=== PATIENT | female | born 1935 | race Caucasian/White ===

== ENCOUNTER 2016-05-10 08:59 | Inpatient (IN) | payer OTHER, MEDICARE ==
[2016-05-10 09:19] VITALS: BMI 25.4
--- NOTE | 2016-05-10 09:22 | PDOC ---
History of Present Illness - History of Present Illness Initial Comments: 05/10/16 09:53 Patient is an 80 year old female with significant medical hx of AFib, HTN, HLD, COPD, gastritis, GERD, chronic lower back pain, osteoarthritis and osteopenia who is presenting to the ED with one hour of substernal chest pain. The patient' s onset of her pain occurred one hour ago as she was standing up. Her pain is constant, characterized as sharp, and radiates down to her left wrist. She rates her chest pain 8/10 in severity and reports associated mild nausea but no vomiting. Patients last meal was baked salmon that she ate last night at 7PM; she denies eating breakfast this morning or having snacks after dinner. The patient denies a history of cardiac catheterizations. The patients last stress test was one year ago. She saw her test conductor last week and states everything was fine. Denies fever, chills, diaphoresis, and shortness of breath. PCP: Venkat Peraza MD; Aircraft Machinist: Nikki Brown MD Surgical Hx: Bilateral total hip replacement, Appendectomy, Colonoscopy <Lucia Flores - Last Filed: 05/10/16 10:40> <Anand Acosta - Last Filed: 05/10/16 10:48> - General Chief Complaint: Chest Pain Stated Complaint: CHEST PAIN Time Seen by Provider: 05/10/16 09:21 Past History <Lucia Flores - Last Filed: 05/10/16 10:40> - Past Medical History Anemia: No Asthma: No Cancer: No Cardiac Disorders: Yes (PAROXYSMAL A-FIB) CVA: No COPD: No CHF: No Dementia: No Diabetes: No GI Disorders: Yes (IDIOPATHIC EROSIVE/HEMORRHAGIC GASTRITIS; DIVERTICULitis) Disorders: No HTN: Yes Hypercholesterolemia: No Liver Disease: No Seizures: No Thyroid Disease: Yes (nodule) - Surgical History Abdominal Surgery: No Appendectomy: Yes Cardiac Surgery: No Cholecystectomy: No Lung Surgery: No Neurologic Surgery: No Orthopedic Surgery: Yes (both HIP REPLACEMENT) - Immunization History Immunization Up to Date: No - Psycho/Social/Smoking Cessation Hx Anxiety: Yes Suicidal Ideation: No Smoking History: Never smoked Have you smoked in the past 12 months: No If you are a former smoker, when did you quit?: 40 YRS AGO Information on smoking cessation initiated: No Hx Alcohol Use: Yes (DAILY WINE) Drug/Substance Use Hx: No Substance Use Type: None Hx Substance Use Treatment: No <Anand Acosta - Last Filed: 05/10/16 10:48> - Past Medical History Allergies/Adverse Reactions: Allergies Allergy/AdvReac Type Severity Reaction Status Date / Time atropine AdvReac Severe Verified 05/10/16 09:04 tape Allergy Intermediate Rash Uncoded 05/10/16 09:04 Home Medications: Ambulatory Orders Amlodipine Besylate 10 mg PO DAILY 05/10/16 Ascorbic Acid [Vitamin C] 500 mg PO DAILY 05/10/16 Atenolol [Tenormin -] 25 mg PO HS 05/10/16 Cholecalciferol (Vitamin D3) [Vitamin D3 -] 1,000 unit PO DAILY 05/10/16 Dabigatran Etexilate Mesylate [Pradaxa -] 150 mg PO BID 05/10/16 Docusate Sodium 100 mg PO BID 05/10/16 Hydralazine HCl [Apresoline -] 25 mg PO BID 05/10/16 Hydrochlorothiazide 25 mg PO DAILY 05/10/16 Multivitamins [Tab-A-Vit -] 1 tab PO DAILY 05/10/16 [place]-3 Fatty Acids [[place]-3] 1,000 mg PO DAILY 05/10/16 Red Yeast Rice Extract 600 gm PO DAILY 05/10/16 Valsartan 320 mg PO DAILY 05/10/16 Zolpidem Tartrate [Ambien] 10 mg PO HS 05/10/16 Review of Systems - Review of Systems Comments:: 05/10/16 09:55 GENERAL/CONSTITUTIONAL: No fever or chills. No weakness. HEAD, EYES, EARS, NOSE AND THROAT: No change in vision. No ear pain or discharge. No sore throat. CARDIOVASCULAR: Chest pain. No shortness of breath. RESPIRATORY: No cough, wheezing, or hemoptysis. GASTROINTESTINAL: Nausea. No vomiting, diarrhea or constipation. GENITOURINARY: No dysuria, frequency, or change in urination. MUSCULOSKELETAL: No joint or muscle swelling or pain. No neck or back pain. SKIN: No rash NEUROLOGIC: No headache, vertigo, loss of consciousness, or change in strength/ sensation. <Lucia Flores - Last Filed: 05/10/16 10:40> *Physical Exam - Vital Signs Last Vital Signs Temp Pulse Resp BP Pulse Ox 97.2 F L 79 18 117/74 100 05/10/16 09:18 05/10/16 09:18 05/10/16 09:18 05/10/16 09:18 05/10/16 09:18 - Physical Exam Comments: 05/10/16 09:57 GENERAL: Awake, alert, and fully oriented, in no acute distress HEAD: No signs of trauma EYES: PERRLA, EOMI, sclera anicteric, conjunctiva clear ENT: Auricles normal inspection, hearing grossly normal, nares patent, oropharynx clear without exudates. Moist mucosa NECK: Normal ROM, supple, no lymphadenopathy, JVD, or masses LUNGS: Breath sounds equal, clear to auscultation bilaterally. No wheezes, and no crackles HEART: Irregularly irregular. Normal S1 and S2, no murmurs, rubs or gallops ABDOMEN: Soft, nontender, normoactive bowel sounds. No guarding, no rebound. No masses EXTREMITIES: Normal range of motion, no edema. No clubbing or cyanosis. No cords, erythema, or tenderness NEUROLOGICAL: Cranial nerves II through XII grossly intact. Normal speech, normal gait SKIN: Warm, Dry, normal turgor, no rashes or lesions noted. ENDOCRINE: No increased thirst. No abnormal weight change. HEMATOLOGIC/LYMPHATIC: No anemia, easy bleeding, or history of blood clots. ALLERGIC/IMMUNOLOGIC: No hives or skin allergy. <Lucia Flores - Last Filed: 05/10/16 10:40> - Vital Signs Last Vital Signs Temp Pulse Resp BP Pulse Ox 97.2 F L 79 18 117/74 100 05/10/16 09:18 05/10/16 09:18 05/10/16 09:18 05/10/16 09:18 05/10/16 09:18 <Anand Acosta - Last Filed: 05/10/16 10:48> Heart Score/ECG Review #1 05/10/16 10:40 Atrial flutter with variable AV block at [address] and T wave abnormality Abnormal ECT Same as ECG performed on 11/15/15 <Lucia Flores - Last Filed: 05/10/16 10:40> - History History: Moderately suspicious - Age Age: >/= 65 - Risk Factors Risk Factors Heart Score: Yes Hx Hypercholesterolemia Based on the list above the patient has:: >/=3 risk factors or Hx atherosclerotic disease - Troponin Troponin: 1-3x normal limit - ECG Intrepretation Rhythm: Irregularly Irregular <Anand Acosta - Last Filed: 05/10/16 10:48> ED Treatment Course - LABORATORY CBC & Chemistry Diagram: 05/10/16 09:26 05/10/16 09:25 - RADIOLOGY Radiograph Interpretation: 05/10/16 10:41 Chest X-Ray Impression: Left lower lung zone obscured by the cardiac silhouette, soft tissues of the chest. No airspace opacities are seen in the elft upper lung zone, right lung. No evidence of vascular congestion. No evidence of pneumothorax. Reported By: Lamberto Jim MD - Medications Given in the ED: ED Medications Discontinued Medications Generic Name Dose Route Start Last Admin Trade Name Freq PRN Reason Stop Dose Admin Morphine Sulfate 4 mg 05/10/16 09:28 05/10/16 09:35 Morphine Injection - IVPUSH 05/10/16 09:29 4 mg ONCE ONE Administration Ondansetron HCl 4 mg 05/10/16 09:28 05/10/16 09:36 Zofran Injection IVPUSH 05/10/16 09:29 4 mg ONCE ONE Administration <Lucia Flores - Last Filed: 05/10/16 10:40> - LABORATORY CBC & Chemistry Diagram: 05/10/16 09:26 05/10/16 09:25 <Anand Acosta - Last Filed: 05/10/16 10:48> *DC/Admit/Observation/Transfer - Attestations Scribe Attestion: 05/10/16 09:58 Documentation prepared by Lucia Flores, acting as medical assembler for Anand Acosta MD. <Lucia Flores - Last Filed: 05/10/16 10:40> - Discharge Dispostion Admit: Yes - Attestations Physician Attestion: 05/10/16 09:22 I, Dr. Anand Acosta, attest that this document has been prepared under my direction and personally reviewed by me in its entirety. I further attest, that it accurately reflects all work, treatment, procedures and medical decision -making performed by me. <Anand Acosta - Last Filed: 05/10/16 10:48> Diagnosis at time of Disposition: ACS (acute coronary syndrome) Chest pain Qualifiers: Chest pain type: precordial chest pain Qualified Code(s): R07.2 - Precordial pain - Discharge Dispostion Condition at time of disposition: Improved - Referrals Referrals: Venkat Peraza MD [Primary Care Provider] -
[2016-05-10] MEDS ORDERED: morphine CARPU-JECT 4 MG/1 ML DISP.SYRIN IVPUSH ONE (09:28)
[2016-05-10] MEDS ORDERED: ONDANSETRON 4 MG/2 ML VIAL IVPUSH ONE (09:28)
[2016-05-10] MEDS ORDERED: ONDANSETRON 4 MG/2 ML VIAL ONE (09:30)
[2016-05-10] MEDS ORDERED: morphine CARPU-JECT 4 MG/1 ML DISP.SYRIN ONE (09:30)
[2016-05-10] MEDS ORDERED: MAG HYDROX/AL HYDROX/SIMETH 30 ML UNIT-DOSE CUP PO ONE (09:46)
[2016-05-10] MEDS ORDERED: diphenhydrAMINE HCL 12.5 MG/5 ML UNIT-DOSE CUPS PO ONE (09:46)
[2016-05-10] MEDS ORDERED: FAMOTIDINE 20 MG/50 ML IVPB 50 ML IVPB ONE ×2 (09:46→09:57)
[2016-05-10] MEDS ORDERED: LIDOCAINE VISCOUS 2% ORAL/TOP 20 ML UNIT-DOSE CUP MM ONE (09:46)
[2016-05-10] MEDS ORDERED: PANTOPRAZOLE 40 MG TABLET (FP) PO ONE (09:46)
[2016-05-10 09:56] LABS: BASOPHIL 0.9 % (0-2.0); EOSINOPHIL 1.8 % (0-4.5); MCH 28.1 pg (25.7-33.7); MEAN CELL VOLUME 85.2 fl (80-96); MEAN PLT VOLUME 7.7 fl (7.5-11.1); NEUTROPHILS 63.5 % (42.8-82.8); PLATELET COUNT 355 K/MM3 (134-434); RDW 16.8 % (11.6-15.6); WHITE BLOOD COUNT 7.6 K/mm3 (4.0-10.0)
[2016-05-10] MEDS ORDERED: MAG HYDROX/AL HYDROX/SIMETH 30 ML UNIT-DOSE CUP ONE (09:56)
[2016-05-10] MEDS ORDERED: PANTOPRAZOLE 40 MG TABLET (FP) ONE (09:56)
[2016-05-10] MEDS ORDERED: diphenhydrAMINE HCL 12.5 MG/5 ML BULK BOTTLE ONE (09:56)
[2016-05-10 10:11] LABS: ALBUMIN 3.5 g/dl (3.4-5.0); ANION GAP 12 (8-16); BILIRUBIN,TOTAL 0.6 mg/dL (0.2-1.0); CALCIUM 9.5 mg/dL (8.5-10.1); CO2 26 mmol/L (21-32); CREATININE 0.7 mg/dL (0.55-1.02); GLUCOSE,RANDOM 141 mg/dL (74-106); SGPT/ALT 23 U/L (12-78); TOT PROT 7.2 g/dl (6.4-8.2)
[2016-05-10 10:14] LABS: ALK PHOS 79 U/L (45-117); TROPONIN I 0.07 ng/ml (0.00-0.05)
[2016-05-10 10:20] LABS: SGOT/AST 39 U/L (15-37)
[2016-05-10 10:38] LABS: INR 1.24 (0.82-1.09); PROTHROMBIN TIME (PATIENT) 13.7 SEC (9.98-11.88)
[2016-05-10] MEDS ORDERED: SODIUM CHLORIDE 500 ML IV STA (10:42)
[2016-05-10] MEDS ORDERED: morphine CARPU-JECT 2 MG/1 ML DISP.SYRIN IVPUSH ONE (10:43)
[2016-05-10] MEDS ORDERED: NITROGLYCERIN 2% OINTMENT - 1GM PACKET TD ONE (10:44)
[2016-05-10] MEDS ORDERED: morphine CARPU-JECT 2 MG/1 ML DISP.SYRIN ONE (10:48)
--- NOTE | 2016-05-10 15:02 | EKG ---
Test Reason : Blood Pressure : / mmHG Vent. Rate : 086 BPM Atrial Rate : 258 BPM P-R Int : 000 ms QRS Dur : 104 ms QT Int : 384 ms P-R-T Axes : 000 -57 079 degrees QTc Int : 459 ms ATRIAL FLUTTER WITH VARIABLE A-V BLOCK LEFT ANTERIOR FASCICULAR BLOCK NONSPECIFIC ST AND T WAVE ABNORMALITY ABNORMAL ECG WHEN COMPARED WITH ECG OF 15-NOV-2015 10:37, ATRIAL FLUTTER HAS REPLACED ATRIAL FIBRILLATION Confirmed by SYLVIA ARREDONDO MD ([id number]) on 05/10/2016 3:02:28 PM Referred By: Confirmed By:SYLVIA ARREDONDO MD
[2016-05-10 16:42] LABS: TROPONIN I 9.87 ng/ml (0.00-0.05)
[2016-05-10] MEDS ORDERED: HEPARIN NA (PORCINE) 5,000 UNITS/ML 1ML VIAL IVPUSH PRN ×2 (20:25)
[2016-05-10] MEDS ORDERED: NITROGLYCERIN 25MG/D5W 250ML 250 ML IVPB SCH (20:30)
[2016-05-10] MEDS ORDERED: DABIGATRAN ETEXILATE MESYLATE 150 MG CAPSULE PO SCH (22:00)
[2016-05-10] MEDS ORDERED: PATIENT'S OWN MEDICATION (NON-FORMULARY) (Zolpidem Tartrate [Ambien] 10 MG) PO SCH (22:00)
[2016-05-10] MEDS: ZOLPIDEM TARTRATE 5 MG TABLET PO PRN (22:01)
[2016-05-10] MEDS: hydrALAZINE HCL 25 MG TABLET (FP) PO SCH (22:01)
[2016-05-10] MEDS: ATENOLOL 25 MG TABLET (FP) PO SCH (22:01)
[2016-05-10] MEDS: ATORVASTATIN CA 80 MG TABLET (FP) PO SCH (22:02)
[2016-05-10] MEDS: HEPARIN INFUSION - 500 ML IVPB SCH (22:02)
[2016-05-11 07:13] LABS: BASOPHIL 0.6 % (0-2.0); EOSINOPHIL 1.5 % (0-4.5); MCH 28.1 pg (25.7-33.7); MCHC 32.6 g/dl (32.0-36.0); MEAN CELL VOLUME 86.1 fl (80-96); MEAN PLT VOLUME 7.4 fl (7.5-11.1); PLATELET COUNT 285 K/MM3 (134-434); RDW 16.7 % (11.6-15.6); WHITE BLOOD COUNT 7.9 K/mm3 (4.0-10.0)
--- NOTE | 2016-05-11 07:19 | HP ---
Admitting History and Physical - Admission History of Present Illness: 80 year old female with significant medical hx of AFib, HTN, HLD, COPD, gastritis, GERD, chronic lower back pain, osteoarthritis and osteopenia who is presented to the ED with one hour of substernal chest pain. The patient's onset of her pain occurred one hour ago as she was standing up. Her pain is constant, characterized as sharp, and radiates down to her left wrist. She rates her chest pain 8/10 in severity and reports associated mild nausea but no vomiting. Patients last meal was baked salmon that she ate last night at 7PM; she denies eating breakfast this morning or having snacks after dinner. The patients last stress test was one year ago. S Denies fever, chills, diaphoresis, and shortness of breath. This am pt without cp--on nitro and heparin - Past Medical History Cardiovascular: Yes: AFIB, CAD, HTN, Hyperlipdemia Pulmonary: Yes: COPD Gastrointestinal: Yes: Gastritis, GERD ...: No Musculoskeletal: Yes: Chronic low back pain, Osteoarthritis Endocrine: Yes: Osteopenia - Past Surgical History Past Surgical History: Yes: Appendectomy, Colonoscopy, Joint Replacement - Advance Directives Advance Directives: Yes: Living Will, Health Care Proxy - Smoking History Smoking history: Former smoker Have you smoked in the past 12 months: No If you are a former smoker, when did you quit?: 40 YRS AGO - Alcohol/Substance Use Hx Alcohol Use: Yes (DAILY WINE) Home Medications - Allergies Allergies/Adverse Reactions: Allergies Allergy/AdvReac Type Severity Reaction Status Date / Time atropine AdvReac Severe Verified 05/10/16 09:04 tape Allergy Intermediate Rash Uncoded 05/10/16 09:04 - Home Medications Home Medications: Ambulatory Orders Amlodipine Besylate 10 mg PO DAILY 05/10/16 Ascorbic Acid [Vitamin C] 500 mg PO DAILY 05/10/16 Atenolol [Tenormin -] 25 mg PO HS 05/10/16 Cholecalciferol (Vitamin D3) [Vitamin D3 -] 1,000 unit PO DAILY 05/10/16 Dabigatran Etexilate Mesylate [Pradaxa -] 150 mg PO BID 05/10/16 Docusate Sodium 100 mg PO BID 05/10/16 Hydralazine HCl [Apresoline -] 25 mg PO BID 05/10/16 Hydrochlorothiazide 25 mg PO DAILY 05/10/16 Multivitamins [Tab-A-Vit -] 1 tab PO DAILY 05/10/16 [place]-3 Fatty Acids [[place]-3] 1,000 mg PO DAILY 05/10/16 Red Yeast Rice Extract 600 gm PO DAILY 05/10/16 Valsartan 320 mg PO DAILY 05/10/16 Zolpidem Tartrate [Ambien] 10 mg PO HS 05/10/16 Review of Systems - Review of Systems Cardiovascular: reports: Chest Pain. denies: Palpitations, Shortness of Breath Respiratory: denies: Cough, SOB Gastrointestinal: denies: Abdominal Pain Genitourinary: denies: Burning Physical Examination Vital Signs: Vital Signs Temperature 98.2 F 05/11/16 01:00 Pulse Rate 81 05/11/16 01:00 Respiratory Rate 18 05/11/16 01:00 Blood Pressure 97/47 05/11/16 03:30 O2 Sat by Pulse Oximetry (%) 95 05/10/16 21:00 Cardiovascular: Yes: Pulse Irregular, S1, S2 Respiratory: Yes: Regular, CTA Bilaterally Gastrointestinal: Yes: Normal Bowel Sounds, Soft. No: Tenderness Neurological: Yes: Alert, Oriented Labs: CBC, BMP 05/11/16 05:35 Problem List - Problems (1) ACS (acute coronary syndrome) Assessment/Plan: CONTINUE WITH HEPARIN/NITRO/ASA/HIGH DOSE STATIN/B-ESTRADA FOLLOW CE CARDIO--MAY NEED CATH Code(s): I24.9 - ACUTE ISCHEMIC HEART DISEASE, UNSPECIFIED (2) Hypertension Assessment/Plan: CONTROLLED MONITOR Code(s): I10 - ESSENTIAL (PRIMARY) HYPERTENSION Qualifiers: Hypertension type: essential hypertension Qualified Code(s): I10 - Essential (primary) hypertension (3) Atrial fibrillation Assessment/Plan: RATE CONTROLLED SAME MEDS HOLD PRADAXA HEPARIN Code(s): I48.91 - UNSPECIFIED ATRIAL FIBRILLATION Qualifiers: Atrial fibrillation type: permanent Qualified Code(s): I48.2 - Chronic atrial fibrillation
[2016-05-11 08:01] LABS: ALBUMIN 2.9 g/dl (3.4-5.0); ALK PHOS 67 U/L (45-117); ANION GAP 6 (8-16); BILIRUBIN,TOTAL 0.5 mg/dL (0.2-1.0); CALCIUM 8.8 mg/dL (8.5-10.1); CHOLESTEROL 122 mg/dL (50-200); CO2 31 mmol/L (21-32); CREATININE 0.5 mg/dL (0.55-1.02); GLUCOSE,RANDOM 114 mg/dL (74-106); LDL CHOLESTEROL (ONLY SJRH) 59 mg/dL (5-100); SGOT/AST 54 U/L (15-37); SGPT/ALT 22 U/L (12-78)
[2016-05-11 08:47] LABS: TROPONIN I 6.06 ng/ml (0.00-0.05)
[2016-05-11] MEDS: ASCORBIC ACID 500 MG TABLET (FP) PO SCH (09:41)
[2016-05-11] MEDS: hydrALAZINE HCL 25 MG TABLET (FP) PO SCH ×2 (09:41→21:06)
[2016-05-11] MEDS: HYDROCHLOROTHIAZIDE 25 MG TABLET (FP) PO SCH (09:41)
[2016-05-11] MEDS: HEPARIN INFUSION - 500 ML IVPB SCH ×2 (09:42→20:57)
[2016-05-11] MEDS ORDERED: PATIENT'S OWN MEDICATION (NON-FORMULARY) (Ascorbic Acid [Vitamin C] 500 MG) PO SCH (10:00)
[2016-05-11] MEDS ORDERED: PATIENT'S OWN MEDICATION (NON-FORMULARY) (Valsartan [Valsartan] 320 MG) PO SCH (10:00)
[2016-05-11] MEDS: amLODIPine BESYLATE 10 MG TABLET (FP) PO SCH (11:25)
[2016-05-11] MEDS: VALSARTAN 160 MG TABLET (UD) PO SCH (11:25)
[2016-05-11] MEDS: ACETAMINOPHEN 325 MG TABLET (FP) PO PRN ×3 (11:30→22:50)
--- NOTE | 2016-05-11 16:33 | EKG ---
Test Reason : Blood Pressure : / mmHG Vent. Rate : 079 BPM Atrial Rate : 241 BPM P-R Int : 000 ms QRS Dur : 100 ms QT Int : 408 ms P-R-T Axes : 114 -63 -15 degrees QTc Int : 467 ms ATRIAL FLUTTER WITH VARIABLE A-V BLOCK LEFT ANTERIOR FASCICULAR BLOCK ANTERIOR INFARCT (CITED ON OR BEFORE 10-MAY-2016) ABNORMAL ECG Confirmed by MD KANDY, ANAY ([id number]) on 05/11/2016 4:33:39 PM Referred By: SPARKLE REID Confirmed By:ANAY GAITAN MD
[2016-05-11] MEDS ORDERED: NITROGLYCERIN 25MG/D5W 250ML 250 ML IVPB SCH (16:45)
[2016-05-11] MEDS: ATORVASTATIN CA 80 MG TABLET (FP) PO SCH (21:03)
[2016-05-11] MEDS: ATENOLOL 25 MG TABLET (FP) PO SCH (21:03)
[2016-05-11] MEDS: ZOLPIDEM TARTRATE 5 MG TABLET PO PRN (22:50)
[2016-05-12] MEDS: ACETAMINOPHEN 325 MG TABLET (FP) PO PRN ×3 (05:23→23:24)
[2016-05-12 08:38] LABS: MCHC 32.6 g/dl (32.0-36.0); MEAN PLT VOLUME 7.5 fl (7.5-11.1); PLATELET COUNT 273 K/MM3 (134-434); RDW 16.3 % (11.6-15.6); WHITE BLOOD COUNT 6.7 K/mm3 (4.0-10.0)
[2016-05-12 08:58] LABS: ALBUMIN 2.9 g/dl (3.4-5.0); ANION GAP 9 (8-16); CALCIUM 8.8 mg/dL (8.5-10.1); CO2 31 mmol/L (21-32); CREATININE 0.6 mg/dL (0.55-1.02); GLUCOSE,RANDOM 111 mg/dL (74-106); SGOT/AST 38 U/L (15-37); SGPT/ALT 24 U/L (12-78)
[2016-05-12 09:15] LABS: ALK PHOS 65 U/L (45-117); BILIRUBIN,TOTAL 0.5 mg/dL (0.2-1.0); TOT PROT 5.8 g/dl (6.4-8.2)
[2016-05-12 09:53] LABS: TROPONIN I 2.49 ng/ml (0.00-0.05)
[2016-05-12] MEDS: ASPIRIN 81 MG CHEWABLE TABLETS PO SCH (09:56)
[2016-05-12] MEDS: hydrALAZINE HCL 25 MG TABLET (FP) PO SCH (09:56)
[2016-05-12] MEDS: ASCORBIC ACID 500 MG TABLET (FP) PO SCH (09:56)
[2016-05-12] MEDS: amLODIPine BESYLATE 10 MG TABLET (FP) PO SCH (09:56)
[2016-05-12] MEDS: VALSARTAN 160 MG TABLET (UD) PO SCH (09:57)
[2016-05-12] MEDS: HYDROCHLOROTHIAZIDE 25 MG TABLET (FP) PO SCH (09:57)
--- NOTE | 2016-05-12 10:00 | PN ---
Progress Note, Physician History of Present Illness: NO CP - Current Medication List Current Medications: Active Medications Acetaminophen (Tylenol -) 650 mg PO Q6H PRN PRN Reason: FEVER OR PAIN Last Admin: 05/12/16 05:23 Dose: 650 mg Amlodipine Besylate (Norvasc -) 10 mg PO DAILY [facility] Last Admin: 05/12/16 09:56 Dose: 10 mg Ascorbic Acid (Vitamin C -) 500 mg PO DAILY [facility] Last Admin: 05/12/16 09:56 Dose: 500 mg Aspirin (Asa -) 81 mg PO DAILY [facility] Last Admin: 05/12/16 09:56 Dose: 81 mg Atenolol (Tenormin -) 25 mg PO HS [facility] Last Admin: 05/11/16 21:03 Dose: 25 mg Atorvastatin Calcium (Lipitor -) 80 mg PO HS [facility] Last Admin: 05/11/16 21:03 Dose: 80 mg Heparin Sodium (Porcine) (Heparin -) 1,000 unit IVPUSH PRN PRN PRN Reason: Heparin Heparin Sodium (Porcine) (Heparin -) 5,000 unit IVPUSH PRN PRN PRN Reason: Heparin Last Admin: 05/10/16 22:09 Dose: 5,000 unit Hydrochlorothiazide (Hctz -) 25 mg PO DAILY [facility] Last Admin: 05/12/16 09:57 Dose: Not Given Heparin Sodium/Dextrose (Heparin Infusion -) 500 mls @ 16 mls/hr IVPB TITR [facility] ; 800 UNITS/HR PRN Reason: Protocol Last Admin: 05/11/16 20:57 Dose: Not Given Valsartan (Diovan -) 320 mg PO DAILY [facility] Last Admin: 05/12/16 09:57 Dose: Not Given Zolpidem Tartrate (Ambien -) 5 mg PO HS PRN Last Admin: 05/11/16 22:50 Dose: 5 mg - Objective Vital Signs: Vital Signs Temperature 98.2 F 05/12/16 06:00 Pulse Rate 73 05/12/16 06:00 Respiratory Rate 16 05/12/16 06:00 Blood Pressure 102/52 05/12/16 06:00 O2 Sat by Pulse Oximetry (%) 98 05/11/16 20:01 Cardiovascular: Yes: Pulse Irregular, S1, S2 Respiratory: Yes: Regular, CTA Bilaterally Gastrointestinal: Yes: Normal Bowel Sounds, Soft Labs: CBC, BMP 05/12/16 06:00 05/12/16 06:00 INR, PTT INR 1.24 (0.82-1.09) H 05/10/16 09:25 Problem List - Problems (1) ACS (acute coronary syndrome) Assessment/Plan: CONTINUE WITH HEPARIN/ DC NITRO/ ASA/HIGH DOSE STATIN/B-ESTRADA FOLLOW CE CARDIO--MAY NEED CATH Code(s): I24.9 - ACUTE ISCHEMIC HEART DISEASE, UNSPECIFIED (2) Hypertension Assessment/Plan: CONTROLLED MONITOR Code(s): I10 - ESSENTIAL (PRIMARY) HYPERTENSION Qualifiers: Hypertension type: essential hypertension Qualified Code(s): I10 - Essential (primary) hypertension (3) Atrial fibrillation Assessment/Plan: RATE CONTROLLED SAME MEDS HOLD PRADAXA HEPARIN Code(s): I48.91 - UNSPECIFIED ATRIAL FIBRILLATION Qualifiers: Atrial fibrillation type: permanent Qualified Code(s): I48.2 - Chronic atrial fibrillation
[2016-05-12] MEDS: ISOSORBIDE MONONITRATE 30 MG TAB.SR.24H (FP) PO SCH (10:36)
--- NOTE | 2016-05-12 14:00 | CONS ---
DATE OF CONSULTATION: 05/11/2016 TIME OF CONSULTATION: 7:30 p.m. REQUESTING PHYSICIAN: Venkat Peraza MD CARDIOLOGY CONSULTATION CHIEF COMPLAINT: Chest pains. HISTORY OF PRESENT ILLNESS: Patient is an 80-year-old white female who is known to our service and has been under the care of Dr. Brown. She developed the sudden onset of retrosternal pressure-like chest discomfort that radiated to her left arm which persisted for at least an hour. The pain was not accompanied by dyspnea, diaphoresis, nausea or vomiting. She has no history of palpitations, dizziness, presyncope or syncope. The patient has a longstanding history of hypertension, hypertensive cardiovascular disease, coronary artery disease, angina pectoris, permanent atrial fibrillation/flutter, history of COPD as noted in the records, gastroesophageal reflux disease, hypothyroidism, left ventricular diastolic dysfunction and a history of mitral regurgitation. On admission, the patient was placed on IV nitroglycerin. PAST HISTORY: 1. As mentioned in the history of present illness. 2. Osteoporosis. 3. History of degenerative joint disease. SURGICAL HISTORY: Patient has had the following surgeries: 1. Status post tonsillectomy. 2. Surgery for scoliosis of the spine. 3. Status post appendectomy. 4. Status post hysterectomy. 5. Bilateral cataract extractions. 6. Breast biopsies. 7. History of bilateral hip replacements as documented in the chart. SOCIAL HISTORY: She is , retired, has a son and a daughter who are healthy. The patient smoked from the age of 13 into her mid to late 40's and apparently smoked 1 pack per week. She has a glass of wine with dinner, has 1 cup of coffee, and 1 cup of tea per day. FAMILY HISTORY: Father at age 85 due to carcinoma of the stomach, but he was also known to have heart disease. Mother at age 59 of breast carcinoma. The patient has an older brother who is diabetic. ALLERGIES: ATROPINE (?). MEDICATIONS PRIOR TO ADMISSION: 1. Pradaxa 150 mg p.o. b.i.d. 2. Atenolol 25 mg p.o. q.12 h. 3. Berenice 10/40 mg p.o. daily. 4. Gabapentin 300 mg p.o. nightly. 5. Hydralazine 25 mg p.o. b.i.d. 6. Hydrochlorothiazide 25 mg p.o. daily. 7. Zolpidem 10 mg p.o. daily. 8. Vitamin D3 at 1000 units p.o. daily. 9. Colace 100 mg p.o. b.i.d. 10. Multivitamin 1 p.o. daily. 11. Red yeast rice 600 mg p.o. daily. 12. Synthroid 25 mcg p.o. daily. REVIEW OF SYSTEMS: Constitutional: No history of chills, fever, night sweats. No history of unintentional weight loss. HEENT: No history of headaches, diplopia, blurred vision. No history of epistaxis, hoarseness, tinnitus, or deafness. Cardiovascular: See history of present illness. Respiratory: No history of cough, expectoration, or hemoptysis. No history of tuberculosis. Gastrointestinal: Denies any recent nausea, vomiting, melena, or hematemesis. No history of abdominal pain or discomfort. No history of change in bowel habits. Neurological: No history of seizures, syncope, dizziness. No history of focal weakness. Endocrine: No history of polyuria or polydipsia. No history of intolerance to cold or warm weather. Genitourinary: No history of dysuria, frequency, urgency, or hematuria. Musculoskeletal: History of arthralgias but denies having myalgias. Hematologic/Lymphatics: No history of anemia according to the patient. No history of lymph node enlargement. PHYSICAL EXAMINATION: General: An 80-year-old female. At the time of examination, she was in no distress. No pallor, cyanosis, clubbing, or jaundice. Vital Signs: Blood pressure 95/54 mmHg. Pulse 66 beats per minute and irregularly irregular. Patient was afebrile. Respirations were 20 per minute. Neck: Supple. No jugular venous distention. Hepatojugular reflux was negative. Carotids were 2+. Upstrokes were normal. No bruits were heard, and no thyromegaly was present. Heart: PMI within the 5th intercostal space. No heaves or thrills. S1 was variable. S2 was normal. Grade 1/6 apical systolic murmur was heard. No diastolic murmur or gallops were appreciated. Lungs: Clear on auscultation. Chest: Normal AP diameter. Expansion was symmetrical. Abdomen: Soft, protuberant, and nontender. No hepatosplenomegaly or palpable masses were felt. Extremities: Patient had bilateral TEDs. Her left ankle had 1 to 2+ pitting edema. Dorsalis pedis and posterior tibial pulses were 2+. Femoral pulses were 2+. LABORATORY DATA: ECG of May 10, 2016 revealed atypical atrial flutter with rapid and variable ventricular response. Left anterior hemiblock, poor R-wave progression across the precordial leads, upward coving of ST segments in leads I and aVL; may reflect current of injury versus early repolarization. A repeat ECG revealed atypical atrial flutter with varying AV conduction. Compared to previous tracing, ST segments were now slightly depressed in I and aVL. An ECG of May 01 at 9:06 a.m. had revealed an atypical atrial flutter with varying AV conduction. Compared to earlier tracing, upward coving of ST segments was again noted in I and aVL. No other major changes were seen. LABORATORY DATA: WBC count on May 11, 2016 was 7900. Hemoglobin was 11 g/dL. Platelet count was 287,000. Differential was normal. CK on admission was 8390 and 206, respectively. Troponins were 0.07, 9.87, and 6.06 on May 11. Total cholesterol was 122, triglycerides 46, LDL cholesterol 59, HDL cholesterol was 57. On May 11, 2016, serum sodium 143, potassium 4.0, chloride 106, CO2 of 31 mmol/L. BUN was 13, creatinine 0.5 mg/dL. Random glucose on May 11 was 114 mg/dL. Hemoglobin A1c was 6.1%. AST was elevated at 54, ALT was 22 units per liter. X-ray chest of May 10, 2016; impression: Left lung zone obscured by the cardiac silhouette. Soft tissue of the chest. No air-space opacities are seen in the left upper lung zone. No evidence of vascular congestion. No evidence of pneumothorax. IMPRESSION: 1. Clinical presentation consistent with acute coronary syndrome. 2. Coronary artery disease, angina pectoris. 3. Hypertension, hypertensive cardiovascular disease. 4. Hypothyroidism. 5. Hypercholesterolemia. 6. History of atypical atrial flutter/fibrillation with controlled ventricular response. 7. History of ventricular ectopic beats. 8. Pedal edema, left more pronounced than right, most likely secondary to amlodipine. 9. History of left ventricular diastolic dysfunction. Post-admission medications were reviewed and are as follows: 1. Valsartan 320 mg p.o. daily. 2. Heparin as per protocol. 3. Atenolol 25 mg p.o. nightly. 4. Amlodipine 10 mg p.o. daily. 5. Hydralazine 25 mg p.o. b.i.d. 6. Atorvastatin 80 mg p.o. daily. 7. Zolpidem 5 mg p.o. p.r.n. 8. Nitroglycerin IV 5 mcg/minute. 9. Aspirin 81 mg p.o. daily. 10. Hydrochlorothiazide 25 mg p.o. daily. 11. Ascorbic acid 500 mg p.o. daily. RECOMMENDATIONS: 1. As blood pressure remains low, consider reducing the dose of valsartan and if necessary, hold hydrochlorothiazide. 2. Followup ECG and enzymes. 3. Increase dose of beta blockers if there is evidence of rapid ventricular response or recurrence of chest pain. 4. Continue IV nitroglycerin and if followup ECG and enzymes remain stable, could switch to oral nitrates. 5. Close followup of hemoglobin and hematocrit. 6. Obtain T3, T4, and TSH. 7. Obtain echocardiogram. 8. Risk modifications. PROGNOSIS: Guarded. Thank you for your referral. Yours sincerely, ELISSA BEARD M.D. [id number]
--- NOTE | 2016-05-12 20:37 | CON.CARD ---
Consult Consult Specialty:: Cardiology Referred by:: Venkat Peraza MD Reason for Consultation:: Chest pain - History of Present Illness Chief Complaint: Chest pain History of Present Illness: Patient is an 80 year old female with underlying history of permament atrial fibrillation, HTN, hypercholesterolemia, GERD and COPD post right hip fracture repair site of prior hip replacement admitted for sharp chest pain at rest with radiation down left arm since resolved. She denies shortness of breath, near or true syncope, palpitations, PND, LE edema or orthopnea, most recent stress test within last year. - History Source History Provided By: Patient Limitations to Obtaining History: No Limitations - Past Medical History Cardio/Vascular: Yes: AFIB, CAD, HTN, Hyperlipdemia Pulmonary: Yes: COPD Gastrointestinal: Yes: Gastritis, GERD ...: No Musculoskeletal: Yes: Chronic low back pain, Osteoarthritis Endocrine: Yes: Osteopenia - Past Surgical History Past Surgical History: Yes: Appendectomy, Colonoscopy, Joint Replacement - Alcohol/Substance Use Hx Alcohol Use: Yes (DAILY WINE) - Smoking History Smoking history: Former smoker Have you smoked in the past 12 months: No If you are a former smoker, when did you quit?: 40 YRS AGO Home Medications - Allergies Allergies/Adverse Reactions: Allergies Allergy/AdvReac Type Severity Reaction Status Date / Time atropine AdvReac Severe Verified 05/10/16 09:04 tape Allergy Intermediate Rash Uncoded 05/10/16 09:04 - Home Medications Home Medications: Ambulatory Orders Amlodipine Besylate 10 mg PO DAILY 05/10/16 Ascorbic Acid [Vitamin C] 500 mg PO DAILY 05/10/16 Atenolol [Tenormin -] 25 mg PO HS 05/10/16 Cholecalciferol (Vitamin D3) [Vitamin D3 -] 1,000 unit PO DAILY 05/10/16 Dabigatran Etexilate Mesylate [Pradaxa -] 150 mg PO BID 05/10/16 Docusate Sodium 100 mg PO BID 05/10/16 Hydralazine HCl [Apresoline -] 25 mg PO BID 05/10/16 Hydrochlorothiazide 25 mg PO DAILY 05/10/16 Multivitamins [Tab-A-Vit -] 1 tab PO DAILY 05/10/16 [place]-3 Fatty Acids [[place]-3] 1,000 mg PO DAILY 05/10/16 Red Yeast Rice Extract 600 gm PO DAILY 05/10/16 Valsartan 320 mg PO DAILY 05/10/16 Zolpidem Tartrate [Ambien] 10 mg PO HS 05/10/16 - Risk Factors Known Risk Factors: Yes: Age Vital Signs: Vital Signs Temperature 97.7 F 05/12/16 18:00 Pulse Rate 83 05/12/16 18:00 Respiratory Rate 16 05/12/16 18:00 Blood Pressure 97/53 05/12/16 18:00 O2 Sat by Pulse Oximetry (%) 95 05/12/16 09:00 Constitutional: Yes: No Distress, Calm Neck: Yes: Supple Respiratory: Yes: Regular, CTA Bilaterally Gastrointestinal: Yes: Normal Bowel Sounds, Soft Cardiovascular: Yes: Regular Rate and Rhythm JVD: No Carotid Bruit: No Heart Sounds: Yes: S1, S2 Murmur: Yes: Systolic Murmur, Grade 1 Edema: No - Other Data Labs, Other Data: CBC, BMP 05/12/16 06:00 05/12/16 06:00 INR, PTT INR 1.24 (0.82-1.09) H 05/10/16 09:25 Troponin, BNP 05/12/16 06:00 Troponin I 2.49 H* Troponin, BNP 05/12/16 06:00 Troponin I 2.49 H* Aflutter @ 69 PRWP Ejection Fraction %: LVEF > or = 40 % Imaging - Results Chest X-ray: Report Reviewed (05/10/16 10:41 Chest X-Ray Impression: Left lower lung zone obscured by the cardiac silhouette, soft tissues of the chest. No airspace opacities are seen in the elft upper lung zone, right lung. No evidence of vascular congestion. No evidence of pneumothorax. Reported By: Lamberto Jim MD) Problem List - Problems (1) ACS (acute coronary syndrome) Code(s): I24.9 - ACUTE ISCHEMIC HEART DISEASE, UNSPECIFIED (2) Hypertension Code(s): I10 - ESSENTIAL (PRIMARY) HYPERTENSION Qualifiers: Hypertension type: essential hypertension Qualified Code(s): I10 - Essential (primary) hypertension (3) Atrial fibrillation Code(s): I48.91 - UNSPECIFIED ATRIAL FIBRILLATION Qualifiers: Atrial fibrillation type: permanent Qualified Code(s): I48.2 - Chronic atrial fibrillation (4) Hypercholesterolemia Code(s): E78.0 - PURE HYPERCHOLESTEROLEMIA * DO NOT USE * (5) Hypertensive cardiovascular disease Code(s): I11.9 - HYPERTENSIVE HEART DISEASE WITHOUT HEART FAILURE Qualifiers: Heart failure presence: without heart failure Qualified Code(s): I11.9 - Hypertensive heart disease without heart failure Assessment/Plan 1. CAD post NSTEMI 2. Permanent atrial fibrillation on NOAC 3. HTN 4. Hypercholesterolemia PLAN: 1. Troponins have peaked, check TSH 2. Pradaxa 150 bid held now on heparin gtt, Atenolol 25 qhs, Norvasc 10 qd, Diovan HCT 320/25 qd, Imdur 30 qd and Lipitor 3. Review outpatient CV studies, echo to assess LV fxn, Persantine Myoview vs LHC to evaluate for severity of CAD 4. Thank you for consultative opportunity
--- NOTE | 2016-05-12 21:02 | EKG ---
Test Reason : Blood Pressure : / mmHG Vent. Rate : 074 BPM Atrial Rate : 061 BPM P-R Int : 000 ms QRS Dur : 106 ms QT Int : 408 ms P-R-T Axes : 000 -67 -05 degrees QTc Int : 452 ms ATRIAL FIBRILLATION LEFT ANTERIOR FASCICULAR BLOCK ANTERIOR INFARCT , AGE UNDETERMINED ABNORMAL ECG WHEN COMPARED WITH ECG OF 11-MAY-2016 14:26, ATRIAL FIBRILLATION HAS REPLACED ATRIAL FLUTTER Confirmed by ROSA CANADA MD ([id number]) on 05/12/2016 9:01:36 PM Referred By: Sawyer HARRINGTON Confirmed By:ROSA CANADA MD
[2016-05-12] MEDS: ATORVASTATIN CA 80 MG TABLET (FP) PO SCH (22:05)
[2016-05-12] MEDS: ATENOLOL 25 MG TABLET (FP) PO SCH (22:05)
[2016-05-12] MEDS: ZOLPIDEM TARTRATE 5 MG TABLET PO PRN (23:24)
[2016-05-13 07:16] LABS: BASOPHIL 0.7 % (0-2.0); EOSINOPHIL 2.3 % (0-4.5); MCH 28.4 pg (25.7-33.7); MCHC 33.3 g/dl (32.0-36.0); MEAN CELL VOLUME 85.3 fl (80-96); MEAN PLT VOLUME 7.5 fl (7.5-11.1); NEUTROPHILS 60.1 % (42.8-82.8); PLATELET COUNT 263 K/MM3 (134-434); RDW 16.2 % (11.6-15.6); WHITE BLOOD COUNT 7.4 K/mm3 (4.0-10.0)
[2016-05-13 08:12] LABS: ALBUMIN 2.8 g/dl (3.4-5.0); ALK PHOS 67 U/L (45-117); ANION GAP 8 (8-16); BILIRUBIN,TOTAL 0.4 mg/dL (0.2-1.0); CALCIUM 8.5 mg/dL (8.5-10.1); CO2 29 mmol/L (21-32); CREATININE 0.5 mg/dL (0.55-1.02); GLUCOSE,RANDOM 106 mg/dL (74-106); SGOT/AST 30 U/L (15-37); SGPT/ALT 24 U/L (12-78); THYROID STIMULATING HORMONE 1.95 uIU/ml (0.358-3.74); TOT PROT 5.8 g/dl (6.4-8.2)
--- NOTE | 2016-05-13 08:28 | PN ---
Progress Note, Physician History of Present Illness: NO CP - Current Medication List Current Medications: Active Medications Acetaminophen (Tylenol -) 650 mg PO Q6H PRN PRN Reason: FEVER OR PAIN Last Admin: 05/12/16 23:24 Dose: 650 mg Amlodipine Besylate (Norvasc -) 10 mg PO DAILY [facility] Last Admin: 05/12/16 09:56 Dose: 10 mg Ascorbic Acid (Vitamin C -) 500 mg PO DAILY [facility] Last Admin: 05/12/16 09:56 Dose: 500 mg Aspirin (Asa -) 81 mg PO DAILY [facility] Last Admin: 05/12/16 09:56 Dose: 81 mg Atenolol (Tenormin -) 25 mg PO HS [facility] Last Admin: 05/12/16 22:05 Dose: 25 mg Atorvastatin Calcium (Lipitor -) 80 mg PO HS [facility] Last Admin: 05/12/16 22:05 Dose: 80 mg Heparin Sodium (Porcine) (Heparin -) 1,000 unit IVPUSH PRN PRN PRN Reason: Heparin Heparin Sodium (Porcine) (Heparin -) 5,000 unit IVPUSH PRN PRN PRN Reason: Heparin Last Admin: 05/10/16 22:09 Dose: 5,000 unit Hydrochlorothiazide (Hctz -) 25 mg PO DAILY [facility] Last Admin: 05/12/16 09:57 Dose: Not Given Heparin Sodium/Dextrose (Heparin Infusion -) 500 mls @ 16 mls/hr IVPB TITR [facility] ; 800 UNITS/HR PRN Reason: Protocol Last Admin: 05/11/16 20:57 Dose: Not Given Isosorbide Mononitrate (Imdur -) 30 mg PO DAILY [facility] Last Admin: 05/12/16 10:36 Dose: 30 mg Valsartan (Diovan -) 320 mg PO DAILY [facility] Last Admin: 05/12/16 09:57 Dose: Not Given Zolpidem Tartrate (Ambien -) 5 mg PO HS PRN Last Admin: 05/12/16 23:24 Dose: 5 mg - Objective Vital Signs: Vital Signs Temperature 97.8 F 05/13/16 02:00 Pulse Rate 78 05/13/16 02:00 Respiratory Rate 18 05/13/16 02:00 Blood Pressure 112/65 05/13/16 02:00 O2 Sat by Pulse Oximetry (%) 97 05/12/16 21:00 Cardiovascular: Yes: Pulse Irregular, S1, S2 Respiratory: Yes: Regular, CTA Bilaterally Gastrointestinal: Yes: Normal Bowel Sounds, Soft Labs: CBC, BMP 05/13/16 06:00 INR, PTT INR 1.24 (0.82-1.09) H 05/10/16 09:25 Problem List - Problems (1) ACS (acute coronary syndrome) Assessment/Plan: NSTEMI CONTINUE WITH HEPARIN/ DC NITRO/ ASA/HIGH DOSE STATIN/B-ESTRADA FOLLOW CE CARDIO-- STRESS TEST Code(s): I24.9 - ACUTE ISCHEMIC HEART DISEASE, UNSPECIFIED (2) Hypertension Assessment/Plan: CONTROLLED MONITOR Code(s): I10 - ESSENTIAL (PRIMARY) HYPERTENSION Qualifiers: Hypertension type: essential hypertension Qualified Code(s): I10 - Essential (primary) hypertension (3) Atrial fibrillation Assessment/Plan: RATE CONTROLLED SAME MEDS HOLD PRADAXA HEPARIN Code(s): I48.91 - UNSPECIFIED ATRIAL FIBRILLATION Qualifiers: Atrial fibrillation type: permanent Qualified Code(s): I48.2 - Chronic atrial fibrillation
[2016-05-13 08:38] LABS: TROPONIN I 1.73 ng/ml (0.00-0.05)
[2016-05-13] MEDS: VALSARTAN 160 MG TABLET (UD) PO SCH (09:30)
[2016-05-13] MEDS: ISOSORBIDE MONONITRATE 30 MG TAB.SR.24H (FP) PO SCH (09:30)
[2016-05-13] MEDS: amLODIPine BESYLATE 10 MG TABLET (FP) PO SCH (09:31)
[2016-05-13] MEDS: ASPIRIN 81 MG CHEWABLE TABLETS PO SCH (09:31)
[2016-05-13] MEDS: HYDROCHLOROTHIAZIDE 25 MG TABLET (FP) PO SCH (09:31)
[2016-05-13] MEDS: ASCORBIC ACID 500 MG TABLET (FP) PO SCH (09:31)
--- NOTE | 2016-05-13 09:41 | PN ---
Progress Note, Physician History of Present Illness: No further chest pain or dyspnea. Ambulates with walker assistance. - Current Medication List Current Medications: Active Medications Acetaminophen (Tylenol -) 650 mg PO Q6H PRN PRN Reason: FEVER OR PAIN Last Admin: 05/12/16 23:24 Dose: 650 mg Amlodipine Besylate (Norvasc -) 10 mg PO DAILY [facility] Last Admin: 05/13/16 09:31 Dose: 10 mg Ascorbic Acid (Vitamin C -) 500 mg PO DAILY [facility] Last Admin: 05/13/16 09:31 Dose: 500 mg Aspirin (Asa -) 81 mg PO DAILY [facility] Last Admin: 05/13/16 09:31 Dose: 81 mg Atenolol (Tenormin -) 25 mg PO HS [facility] Last Admin: 05/12/16 22:05 Dose: 25 mg Atorvastatin Calcium (Lipitor -) 80 mg PO HS [facility] Last Admin: 05/12/16 22:05 Dose: 80 mg Heparin Sodium (Porcine) (Heparin -) 1,000 unit IVPUSH PRN PRN PRN Reason: Heparin Heparin Sodium (Porcine) (Heparin -) 5,000 unit IVPUSH PRN PRN PRN Reason: Heparin Last Admin: 05/10/16 22:09 Dose: 5,000 unit Hydrochlorothiazide (Hctz -) 25 mg PO DAILY [facility] Last Admin: 05/13/16 09:31 Dose: 25 mg Heparin Sodium/Dextrose (Heparin Infusion -) 500 mls @ 16 mls/hr IVPB TITR [facility] ; 800 UNITS/HR PRN Reason: Protocol Last Admin: 05/11/16 20:57 Dose: Not Given Isosorbide Mononitrate (Imdur -) 30 mg PO DAILY [facility] Last Admin: 05/13/16 09:30 Dose: 30 mg Valsartan (Diovan -) 320 mg PO DAILY [facility] Last Admin: 05/13/16 09:30 Dose: 320 mg Zolpidem Tartrate (Ambien -) 5 mg PO HS PRN Last Admin: 05/12/16 23:24 Dose: 5 mg - Objective Vital Signs: Vital Signs Temperature 97.8 F 05/13/16 02:00 Pulse Rate 78 05/13/16 02:00 Respiratory Rate 18 05/13/16 02:00 Blood Pressure 112/65 05/13/16 02:00 O2 Sat by Pulse Oximetry (%) 97 05/12/16 21:00 Constitutional: Yes: No Distress, Calm Neck: Yes: Supple Cardiovascular: Yes: Pulse Irregular Respiratory: Yes: Regular, CTA Bilaterally Gastrointestinal: Yes: Normal Bowel Sounds, Soft Edema: No Labs: CBC, BMP 05/13/16 06:00 05/13/16 06:00 INR, PTT INR 1.24 (0.82-1.09) H 05/10/16 09:25 Problem List - Problems (1) ACS (acute coronary syndrome) Code(s): I24.9 - ACUTE ISCHEMIC HEART DISEASE, UNSPECIFIED (2) Hypertension Code(s): I10 - ESSENTIAL (PRIMARY) HYPERTENSION Qualifiers: Hypertension type: essential hypertension Qualified Code(s): I10 - Essential (primary) hypertension (3) Atrial fibrillation Code(s): I48.91 - UNSPECIFIED ATRIAL FIBRILLATION Qualifiers: Atrial fibrillation type: permanent Qualified Code(s): I48.2 - Chronic atrial fibrillation (4) Hypercholesterolemia Code(s): E78.0 - PURE HYPERCHOLESTEROLEMIA * DO NOT USE * (5) Hypertensive cardiovascular disease Code(s): I11.9 - HYPERTENSIVE HEART DISEASE WITHOUT HEART FAILURE Qualifiers: Heart failure presence: without heart failure Qualified Code(s): I11.9 - Hypertensive heart disease without heart failure Assessment/Plan 1. CAD post NSTEMI 2. Permanent atrial fibrillation on NOAC 3. HTN 4. Hypercholesterolemia PLAN: 1. Troponins have peaked 2. Resume Pradaxa 150 bid, d/c heparin gtt, ASA 81 qd, Atenolol 25 qhs, Norvasc 10 qd, Diovan HCT 320/25 qd, Imdur 30 qd and Lipitor 3. Review outpatient CV studies, echo to assess LV fxn, Persantine Myoview to evaluate for severity of CAD 4. Further recommendations pending above study results
[2016-05-13] MEDS: DABIGATRAN ETEXILATE MESYLATE 150 MG CAPSULE PO SCH ×2 (10:50→21:49)
[2016-05-13 11:44] LABS: URINE APPEARANCE CLEAR; URINE BILIRUBIN NEGATIVE (NEGATIVE); URINE COLOR LTYELLOW; URINE GLUCOSE (UA) NEGATIVE (NEGATIVE); URINE KETONE NEGATIVE (NEGATIVE); URINE LEUK ESTERASE NEGATIVE (NEGATIVE); URINE NITRITE NEGATIVE (NEGATIVE); URINE PROTEIN NEGATIVE (NEGATIVE); URINE UROBILINOGEN 2.0 E.U/dl E.U./dl (0.2-1.0)
[2016-05-13 11:45] LABS: URINE BLOOD 1+ (NEGATIVE)
[2016-05-13 12:07] LABS: URINE RBC 0-2 /hpf (0-3); URINE WBC 0-2 /hpf (3-5)
[2016-05-13] MEDS: ACETAMINOPHEN 325 MG TABLET (FP) PO PRN (18:14)
[2016-05-13] MEDS: ATORVASTATIN CA 80 MG TABLET (FP) PO SCH (21:49)
[2016-05-13] MEDS: ATENOLOL 25 MG TABLET (FP) PO SCH (21:49)
[2016-05-13] MEDS: ZOLPIDEM TARTRATE 5 MG TABLET PO PRN (23:33)
[2016-05-14] MEDS: ACETAMINOPHEN 325 MG TABLET (FP) PO PRN (04:51)
--- NOTE | 2016-05-14 07:30 | EKG ---
Test Reason : Blood Pressure : / mmHG Vent. Rate : 068 BPM Atrial Rate : 267 BPM P-R Int : 000 ms QRS Dur : 104 ms QT Int : 436 ms P-R-T Axes : 000 -67 -16 degrees QTc Int : 463 ms ATRIAL FLUTTER LEFT ANTERIOR FASCICULAR BLOCK NONSPECIFIC T WAVE ABNORMALITY ABNORMAL ECG Confirmed by MD KANDY, ANAY ([id number]) on 05/11/2016 4:29:04 PM Referred By: SPARKLE REID Confirmed By:ANAY GAITAN MD
[2016-05-14 07:35] LABS: MCH 28.3 pg (25.7-33.7); MCHC 33.5 g/dl (32.0-36.0); MEAN CELL VOLUME 84.4 fl (80-96); MEAN PLT VOLUME 7.2 fl (7.5-11.1); PLATELET COUNT 271 K/MM3 (134-434); RDW 16.5 % (11.6-15.6); WHITE BLOOD COUNT 7.7 K/mm3 (4.0-10.0)
--- NOTE | 2016-05-14 08:09 | PN ---
Progress Note, Physician History of Present Illness: NO CP - Current Medication List Current Medications: Active Medications Acetaminophen (Tylenol -) 650 mg PO Q6H PRN PRN Reason: FEVER OR PAIN Last Admin: 05/14/16 04:51 Dose: 650 mg Amlodipine Besylate (Norvasc -) 10 mg PO DAILY [facility] Last Admin: 05/13/16 09:31 Dose: 10 mg Ascorbic Acid (Vitamin C -) 500 mg PO DAILY [facility] Last Admin: 05/13/16 09:31 Dose: 500 mg Aspirin (Asa -) 81 mg PO DAILY [facility] Last Admin: 05/13/16 09:31 Dose: 81 mg Atenolol (Tenormin -) 25 mg PO HS [facility] Last Admin: 05/13/16 21:49 Dose: 25 mg Atorvastatin Calcium (Lipitor -) 80 mg PO HS [facility] Last Admin: 05/13/16 21:49 Dose: 80 mg Dabigatran (Pradaxa -) 150 mg PO BID [facility] Last Admin: 05/13/16 21:49 Dose: 150 mg Hydrochlorothiazide (Hctz -) 25 mg PO DAILY [facility] Last Admin: 05/13/16 09:31 Dose: 25 mg Isosorbide Mononitrate (Imdur -) 30 mg PO DAILY [facility] Last Admin: 05/13/16 09:30 Dose: 30 mg Valsartan (Diovan -) 320 mg PO DAILY [facility] Last Admin: 05/13/16 09:30 Dose: 320 mg Zolpidem Tartrate (Ambien -) 5 mg PO HS PRN Last Admin: 05/13/16 23:33 Dose: 5 mg - Objective Vital Signs: Vital Signs Temperature 98 F 05/14/16 08:00 Pulse Rate 77 05/14/16 08:00 Respiratory Rate 20 05/14/16 08:00 Blood Pressure 112/66 05/14/16 08:00 O2 Sat by Pulse Oximetry (%) 95 05/13/16 21:00 Neck: Yes: Supple Cardiovascular: Yes: S1, S2 Respiratory: Yes: Regular, CTA Bilaterally Gastrointestinal: Yes: Normal Bowel Sounds, Soft Labs: CBC, BMP 05/14/16 05:35 05/13/16 06:00 INR, PTT INR 1.24 (0.82-1.09) H 05/10/16 09:25 Problem List - Problems (1) ACS (acute coronary syndrome) Assessment/Plan: NSTEMI CONTINUE WITH HEPARIN/ DC NITRO/ ASA/HIGH DOSE STATIN/B-ESTRADA FOLLOW CE CARDIO-- STRESS TEST Code(s): I24.9 - ACUTE ISCHEMIC HEART DISEASE, UNSPECIFIED (2) Hypertension Assessment/Plan: CONTROLLED MONITOR Code(s): I10 - ESSENTIAL (PRIMARY) HYPERTENSION Qualifiers: Hypertension type: essential hypertension Qualified Code(s): I10 - Essential (primary) hypertension (3) Atrial fibrillation Assessment/Plan: RATE CONTROLLED SAME MEDS HOLD PRADAXA HEPARIN Code(s): I48.91 - UNSPECIFIED ATRIAL FIBRILLATION Qualifiers: Atrial fibrillation type: permanent Qualified Code(s): I48.2 - Chronic atrial fibrillation (4) Non-ST elevation (NSTEMI) myocardial infarction Assessment/Plan: ABOVE Code(s): I21.4 - NON-ST ELEVATION (NSTEMI) MYOCARDIAL INFARCTION
[2016-05-14] MEDS ORDERED: DEXTROSE 5% IVPB ONE (10:00)
[2016-05-14] MEDS ORDERED: DIPYRIDAMOLE STRESS TEST IVPB ONE (10:00)
[2016-05-14] MEDS ORDERED: WATER IVPB ONE (10:00)
--- NOTE | 2016-05-14 12:35 | PN ---
Progress Note, Physician Chief Complaint: Events noted Feels better. Seen during nuclear stress testing History of Present Illness: Patient was seen and examined. Awake and alert. Chart was reviewed Denies chest pain, SOB or palpitation - Current Medication List Current Medications: Active Medications Acetaminophen (Tylenol -) 650 mg PO Q6H PRN PRN Reason: FEVER OR PAIN Last Admin: 05/14/16 04:51 Dose: 650 mg Amlodipine Besylate (Norvasc -) 10 mg PO DAILY [facility] Last Admin: 05/13/16 09:31 Dose: 10 mg Ascorbic Acid (Vitamin C -) 500 mg PO DAILY [facility] Last Admin: 05/13/16 09:31 Dose: 500 mg Aspirin (Asa -) 81 mg PO DAILY [facility] Last Admin: 05/13/16 09:31 Dose: 81 mg Atenolol (Tenormin -) 25 mg PO HS [facility] Last Admin: 05/13/16 21:49 Dose: 25 mg Atorvastatin Calcium (Lipitor -) 80 mg PO HS [facility] Last Admin: 05/13/16 21:49 Dose: 80 mg Dabigatran (Pradaxa -) 150 mg PO BID [facility] Last Admin: 05/13/16 21:49 Dose: 150 mg Hydrochlorothiazide (Hctz -) 25 mg PO DAILY [facility] Last Admin: 05/13/16 09:31 Dose: 25 mg Isosorbide Mononitrate (Imdur -) 30 mg PO DAILY [facility] Last Admin: 05/13/16 09:30 Dose: 30 mg Valsartan (Diovan -) 320 mg PO DAILY [facility] Last Admin: 05/13/16 09:30 Dose: 320 mg Zolpidem Tartrate (Ambien -) 5 mg PO HS PRN Last Admin: 05/13/16 23:33 Dose: 5 mg - Objective Vital Signs: Vital Signs Temperature 98 F 05/14/16 08:00 Pulse Rate 77 05/14/16 08:00 Respiratory Rate 20 05/14/16 08:00 Blood Pressure 112/66 05/14/16 08:00 O2 Sat by Pulse Oximetry (%) 98 05/14/16 08:00 Neck: Yes: Supple Cardiovascular: Yes: Pulse Irregular, S1, S2 Respiratory: Yes: Diminished Gastrointestinal: Yes: Normal Bowel Sounds, Soft. No: Tenderness Edema: No Additional Findings/Remarks: - Review of Systems Constitutional: denies: Fever. denies: Chills Cardiovascular: (+) Chest Pain, denies: Palpitations, (+) Shortness of Breath Respiratory: denies: Cough, Hemoptysis, Orthopnea, PND Gastrointestinal: denies: Abdominal Pain. denies: Diarrhea, Melena, Nausea, Rectal Bleeding, Vomiting Genitourinary: denies: Dysuria Neurological: denies: Dizziness, Headache, Seizure, Syncope Labs: CBC, BMP 05/14/16 05:35 05/13/16 06:00 Assessment/Plan 1. CAD post NSTEMI 2. Permanent atrial fibrillation on NOAC 3. HTN 4. Hypercholesterolemia PLAN: 1. Troponins have peaked and is coming down 2. Continue Pradaxa 150 mg BID, Heparin gtt stopped, ASA 81 mg QD, Atenolol 25 mg QD, Norvasc 10 mg QD, Diovan HCT 320/25 mg QD, Imdur 30 mg QD and Lipitor to be reduced back to 40 mg QD 3. Echocardiography and nuclear myocardial perfusion imaging to be done today and further plans are to follow Alejandro Gill MD
[2016-05-14] MEDS: HYDROCHLOROTHIAZIDE 25 MG TABLET (FP) PO SCH (14:04)
[2016-05-14] MEDS: DABIGATRAN ETEXILATE MESYLATE 150 MG CAPSULE PO SCH (14:04)
[2016-05-14] MEDS: ASPIRIN 81 MG CHEWABLE TABLETS PO SCH (14:04)
[2016-05-14] MEDS: VALSARTAN 160 MG TABLET (UD) PO SCH (14:04)
[2016-05-14] MEDS: ISOSORBIDE MONONITRATE 30 MG TAB.SR.24H (FP) PO SCH (14:04)
[2016-05-14] MEDS: amLODIPine BESYLATE 10 MG TABLET (FP) PO SCH (14:04)
[2016-05-14] MEDS: ASCORBIC ACID 500 MG TABLET (FP) PO SCH (14:04)
[2016-05-14 16:04] VITALS: BP 116/82; PULSE 82; TEMP 97.4
--- NOTE | 2016-05-15 13:32 | EKG ---
Test Reason : Blood Pressure : / mmHG Vent. Rate : 100 BPM Atrial Rate : 113 BPM P-R Int : 000 ms QRS Dur : 100 ms QT Int : 376 ms P-R-T Axes : 000 -61 -01 degrees QTc Int : 485 ms ATRIAL FLUTTER WITH RAPID VENTRICULAR RESPONSE LEFT AXIS DEVIATION POOR R WAVE PROGRESSION CANNOT RULE OUT SEPTAL INFARCT , AGE UNDETERMINED ABNORMAL ECG WHEN COMPARED WITH ECG OF 10-MAY-2016 09:10, VENT. RATE HAS INCREASED Confirmed by ALISHA VÁZQUEZ MD ([id number]) on 05/15/2016 1:31:38 PM Referred By: Confirmed By:ALISHA VÁZQUEZ MD
== END 2016-05-14 18:30 | disposition home or self-care (01) | DRG 282 ==
LOC: JER 08:59 → JERBED 10:49 → J4W 20:24
PROVIDERS: ADMIT Family Medicine; ATTEND Family Medicine
DX: I21.4 Non-ST elevation (NSTEMI) myocardial infarction (principal); I24.9 Acute ischemic heart disease, unspecified; K21.9 Gastro-esophageal reflux disease without esophagitis; J44.9 Chronic obstructive pulmonary disease, unspecified; M54.5 Low back pain; M85.80 Other specified disorders of bone density and structure, unspecified site; I48.0 Paroxysmal atrial fibrillation; Z79.01 Long term (current) use of anticoagulants; K29.70 Gastritis, unspecified, without bleeding; R07.2 Precordial pain; I10 Essential (primary) hypertension; R01.1 Cardiac murmur, unspecified; M47.9 Spondylosis, unspecified; Z87.891 Personal history of nicotine dependence
CPT/HCPCS: 36415; 71010-TC; 78452-TC; 80053; 80061; 81003; 81015; 82550; 82553; 83036; 83721; 83880; 84443; 84484; 85025; 85027; 85610; 85730; 93005; 93010; 93017; 93306-TC; 99285-25; A9502; J1245; J1644

== ENCOUNTER 2019-10-18 20:38 | Emergency (ER) | payer OTHER ==
--- NOTE | 2019-10-18 20:44 | PDOC ---
Attending Attestation - Resident Resident Name: Jagdish Vazquez - ED Attending Attestation I have performed the following: I have examined & evaluated the patient, The case was reviewed & discussed with the resident, I agree w/resident's findings & plan - HPI HPI: 10/18/19 22:49 Pt slipped out of her recliner/chair today 2 times. She was with her 96 year old , but he cannot say exactly how it happened. Pt is on eliquis and daughter came to the home 1 hr later and noted that mom's face seemed to be asymmetric. However, pt has no asymmetry in the ER and she has no gross focal deficits. - Physicial Exam PE: 10/18/19 22:50 Pt has normal neuro exam Moving all ext; strength equal throughout the body Pt has normal reflexes throughout Pt has clear heart and lungs. Pacemaker is pacing (pt felt no irregularilties or shocks from pacemaker AICD) Pt is afebrile She has no abd back or lower abd pain Pt has no edema. - Medical Decision Making 10/18/19 22:20 Patient Name: MARIANELA COHEN THIS IS A PRELIMINARY REPORT FROM [facility] DATE OF SERVICE: 2019-10-18 20:45:44 IMAGES: [id number] EXAM: HEAD CT WITHOUT CONTRAST HISTORY: Fall COMPARISON: None. TECHNIQUE: Multiple contiguous CT axial images of the brain. Findings: There is no acute intraparenchymal hemorrhage. There is no intra or extra-axial collection. No mass effect or midline shift. No evidence for major vessel acute territorial infarction. Hardy-white matter differentiation is maintained. The ventricles are normal in size and position for patient's age. The paranasal sinuses and mastoid air cells are unopacified. Visualized orbits are unremarkable. Calvarium and soft tissues are unremarkable. Impression: 1. No acute intracranial process. 10/18/19 22:21 Patient Name: MARIANELA COHEN THIS IS A PRELIMINARY REPORT FROM [facility] DATE OF SERVICE: 2019-10-18 20:42:33 IMAGES: [id number] EXAM: CERVICAL SPINE CT W/O CONTR HISTORY: Fall COMPARISON: None. TECHNIQUE: Axial CT images were acquired from the skull base to the upper thoracic spine. Sagittal and coronal reformations were then acquired. of the visualized T4-T5 and T6 spinous process. Bones are osteopenic. IMPRESSION: No evidence of acute fracture or subluxation.severe degenerative change. If there are focal radicular findings, MRI would be recommended. 10/18/19 22:22 All labs are normal 10/18/19 22:52 Pt is srable for d/c/ home. Pt and her daughter are requesting to go home, as they dont want mom to be exposed to COVID in the hospital. Pt has no other complaints. We will call her neurologist Dr. Hoskins and ask his opinion and see when pt can follow as an outpatient. Discharge - Discharge Information Problems reviewed: Yes Clinical Impression/Diagnosis: Fall Condition: Fair Disposition: HOME - Follow up/Referral Referrals: Venkat Peraza MD [Primary Care Provider] - Eda Hoskins MD [Staff Physician] - - Patient Discharge Instructions Patient Printed Discharge Instructions: How to Prevent Falls Additional Instructions: Please follow up with Dr. Hoskins's office tomorrow at 1pm. Please continue taking all of your medications as prescribed. If you experience any new, worsening, or concerning symptoms, including vision changes, jaw pain, headache, numbness/tingling, loss of consciousness, or any other concerns, please return to the emergency department. - Post Discharge Activity
--- NOTE | 2019-10-18 20:49 | PDOC ---
History of Present Illness - General Stated Complaint: POSSIBLE STROKE Time Seen by Provider: 10/18/19 20:41 - History of Present Illness Initial Comments: Mireya Espitia is a 80 y/o female with PMH significant for a-fib (on eliquis), HTN, HLD, COPD, gastritis, GERD, lower back pain, OA, osteopenia, presenting today s/p fall. Per daughter, she was sitting in her recliner when she fell forward at 4pm this morning. Per daughter she was sitting in her recliner when she fell forward x2. Pt denies any LOC, dizziness, heart palpitations prior to fall. EMS was called after the fall and came to her house to evaluate her but the patient said she had no complaints and declined to go to the hospital. Pt's daughter arrived around 7pm for dinner and thought pt had a right sided facial and eye lid droop. Pt denies any complaints at this time. No headache/chest pain/shortness of breath. No abd pain/dysuria/diarrhea. No back pain. No leg swelling. SocHx: lives with , daughter lives within driving distance tPA Exclusion checklist 3-4.5h - Time Elapsed Date last known well: 10/18/19 Time last known well: 16:00 Elaspsed time: 1 Day(s) and 2 Hour(s) and 46 Minutes - Thrombolytic Therapy Candidate Is patient eligible for thrombolytic therapy: Yes - Exclusion Criteria 3-4.5 hr SBP greater than 185 or DBP greater than 110mmHg despite tx: No Recent IC/spinal surgery,head trauma or stroke<3mos.: No Hx IC hemorrhage, IC neoplasm, AV malformation or aneurysm: No Active internal bleeding: No Blding diathesis(low plt ct, inc PTT,INR>1.7 or use of NOAC): No Symptoms suggest subarachnoid hemorrhage: No CT demonstrates multilobar infarct(>1/3 cerebral hemiphere): No Arterial puncture at noncompressible site in previous 7 days: No Blood glucose concentration less than 50mg/dL (2.7mmol/L): No - Relative Exclusion Criteria 3-4.5 hr Care team unable to determine eligibility: No IV/IA thrombolysis/thrombectomy @ another hosp prior arrival: No Life expectancy <1 yr or severe co-morbid illness: No : No Patient/family refused: No Stroke severity too mild (non-disabling): Yes Recent acute TX (w/in previous 3 months): No Seizure at onset with postictal residual neuro impairments: No Major surgery or serious trauma w/in previous 14 days: No Recent GI or hemorrhage (w/in previous 21 days): No - Add'l Relative Exclusion 3-4.5 hr Age > 80: Yes Hx of both diabetes AND prior ischemic stroke: No Taking an oral anticoagulant regardless of INR: Yes Severe Stroke (NIHSS >25): No - Ineligibility reason(s) Reasons No tPA given: See reason(s) noted above NIH Stroke Scale - Last Known Well Date/Time & Onset Date Last Known Well: 10/18/19 Time Last Known Well: 16:00 - Initial Evaluation Level of consciousness: Alert Ask patient the month and their age: Answers both correctly Ask patient to open & close eyes; make fist and let go: Obeys both correctly Best gaze (horizontal eye movement): Normal Visual field testing: No visual field loss Facial paresis (Show teeth/raise eyebrows/close eyes tight): Normal symmetrical movement Motor Function: Left Arm: Normal Motor Function: Right Arm: Normal (extends arm 90 (or 45) degrees for 10 seconds without drift Motor Function: Left Leg: Normal (extends leg 30 degrees for 5 seconds without drift) Motor Function: Right Leg: Normal (extends leg 30 degrees for 5 seconds without drift) Limb Ataxia: No ataxia Sensory(Use pinprick test arms,legs,trunk,face/side to side): Normal Best language (Describe picture, name items, read sentences): No Aphasia Dysarthria (read several words): Normal articulation Extinction and Inattention: No abnormality - Total Score NIH Stroke Scale Score: 0 Past History - Medical History Allergies/Adverse Reactions: Allergies Allergy/AdvReac Type Severity Reaction Status Date / Time atropine AdvReac Severe Verified 10/19/19 13:50 tape Allergy Intermediate Rash Uncoded 10/19/19 13:50 Home Medications: Ambulatory Orders Atenolol [Tenormin -] 72 mg PO BID 05/10/16 Atorvastatin Ca [Lipitor] 40 mg PO HS #30 tablet 05/14/16 Apixaban [Eliquis] 2.5 mg PO BID 10/18/19 Biotin 1,000 mcg PO DAILY 10/18/19 Carbamazepine 400 mg PO BID 10/18/19 Cranberry Fruit Extract [Cranberry] 750 mg PO DAILY 10/18/19 Donepezil HCl [Aricept] 10 mg PO DAILY 10/18/19 Ferrous Sulfate 325 mg PO DAILY 10/18/19 Furosemide [Lasix] 40 mg PO DAILY 10/18/19 [place]-3 Fatty Acids/Fish Oil [Fish Oil 1,000 mg Capsule] 1 each PO DAILY 10/18/19 Potassium Gluconate [Potassium] 99 mg PO DAILY 10/18/19 Spironolactone 25 mg PO QID 10/18/19 Anemia: No Asthma: No Cancer: No Cardiac Disorders: Yes (PAROXYSMAL A-FIB) CVA: No COPD: No CHF: No Dementia: No Diabetes: No GI Disorders: Yes (IDIOPATHIC EROSIVE/HEMORRHAGIC GASTRITIS; DIVERTICULitis) Disorders: No HTN: Yes Hypercholesterolemia: Yes Liver Disease: No Seizures: No Thyroid Disease: Yes (nodule) - Surgical History Abdominal Surgery: No Appendectomy: Yes Cardiac Surgery: No Cholecystectomy: No Lung Surgery: No Neurologic Surgery: No Orthopedic Surgery: Yes (both HIP REPLACEMENT) - Immunization History Immunization Up to Date: No - Psycho-Social/Smoking History Smoking History: Former smoker Have you smoked in the past 12 months: No If you are a former smoker, when did you quit?: 40 YRS AGO Review of Systems - Review of Systems Comments:: GENERAL/CONSTITUTIONAL: No fever or chills. No weakness._ HEAD, EYES, EARS, NOSE AND THROAT: No change in vision. No change in hearing. No sore throat._ CARDIOVASCULAR: No chest pain or shortness of breath_ RESPIRATORY: Denies cough, hemoptysis_ GASTROINTESTINAL: No nausea, vomiting, diarrhea or constipation._ GENITOURINARY: No dysuria, frequency, or change in urination._ MUSCULOSKELETAL: No joint or muscle swelling or pain. No neck or back pain._ SKIN: No rash_ NEUROLOGIC: No headache, vertigo, loss of consciousness, or change in strength/sensation._ ENDOCRINE: No increased thirst. No abnormal weight change_ HEMATOLOGIC/LYMPHATIC: No anemia, easy bleeding, or history of blood clots._ ALLERGIC/IMMUNOLOGIC: No hives or skin allergy._ *Physical Exam - Physical Exam GENERAL: Awake, alert, and oriented, in no acute distress_ HEAD: No signs of trauma, normocephalic, atraumatic _ EYES: PERRLA, EOMI, sclera anicteric, conjunctiva clear_ ENT: Hearing grossly normal, nares patent, oropharynx clear without exudates. No uvular deviation. Moist mucosa. No facial asymmetry observed. NECK: Normal ROM, supple, no lymphadenopathy, JVD, or masses. No c-spine TTP. LUNGS: No distress, speaks in full sentences, clear to auscultation bilaterally _ HEART: Regular rate and rhythm, normal S1 and S2, no murmurs appreciated, peripheral pulses normal and equal bilaterally._ CHEST: Pacemaker in place. No obvious bruising or trauma. ABDOMEN: Soft, nontender, normoactive bowel sounds. No guarding, no rebound. No masses_ EXTREMITIES: Normal inspection, Normal range of motion, no edema. No clubbing or cyanosis_ NEUROLOGICAL: Cranial nerves II through XII grossly intact. Normal speech, no focal sensorimotor deficits. Cerebellar testing, finger to nose, heel to hicks testing intact bilaterally. Ambulates with a walker at baseline. 5/5 strength and sensation in bilateral upper and lower extremities. SKIN: Warm, Dry, normal turgor, no rashes or lesions noted_ ED Treatment Course - LABORATORY CBC & Chemistry Diagram: 10/18/19 21:00 10/18/19 21:00 - RADIOLOGY Radiology Studies Ordered: Category Date Time Status CHEST X-RAY PORTABLE* [RAD] Stat Radiology 10/18/19 20:47 Ordered Medical Decision Making - Medical Decision Making 10/18/19 20:49 84F hx of afib on eliquis, HTN, HLD, COPD, gastritis, GERD, chronic low back pain, OA, osteopenia, presenting today s/p fall x2 and concern for right sided facial droop. DDx includes r/o CVA vs TIA vs r/o intracranial hemorrhage vs r/o ACS vs r/o syncope. -cbc, cmp -ekg, trop, cxr -CT head/neck -coags -type and screen 10/18/19 21:58 CT head negative for acute intracranial pathology. CT neck negative for acute fracture or subluxation. 10/18/19 22:10 CXR shows pacemaker in place, mild cardiomegaly, scoliosis, otherwise no acute intrathoracic pathology. Labs reviewed. Laboratory Tests 10/18/19 10/18/19 10/18/19 21:00 21:00 21:00 WBC 10.1 H RBC 4.48 Hgb 13.3 Hct 41.1 D MCV 91.8 MCH 29.7 MCHC 32.3 RDW 14.8 D Plt Count 350 D MPV 8.2 D Absolute Neuts (auto) 7.7 Neutrophils % 77.0 D Lymphocytes % 13.3 D Monocytes % 8.9 Eosinophils % 0.4 D Basophils % 0.4 Nucleated RBC % 0 ESR 56 H PT with INR 18.50 H INR 1.56 H PTT (Actin FS) 30.6 Sodium 138 Potassium 3.5 Chloride 98 Carbon Dioxide 32 Anion Gap 8 BUN 14.0 Creatinine 0.7 Est GFR (CKD-EPI)AfAm 90.93 Est GFR (CKD-EPI)NonAf 78.45 Random Glucose 283 H Calcium 9.9 Total Bilirubin 0.5 AST 32 ALT 27 Alkaline Phosphatase 125 H Creatine Kinase 55 Troponin I < 0.02 C-Reactive Protein 2.6 H Total Protein 7.5 Albumin 3.5 Blood Type Antibody Screen 10/18/19 21:00 WBC RBC Hgb Hct MCV MCH MCHC RDW Plt Count MPV Absolute Neuts (auto) Neutrophils % Lymphocytes % Monocytes % Eosinophils % Basophils % Nucleated RBC % ESR PT with INR INR PTT (Actin FS) Sodium Potassium Chloride Carbon Dioxide Anion Gap BUN Creatinine Est GFR (CKD-EPI)AfAm Est GFR (CKD-EPI)NonAf Random Glucose Calcium Total Bilirubin AST ALT Alkaline Phosphatase Creatine Kinase Troponin I C-Reactive Protein Total Protein Albumin Blood Type A POSITIVE Antibody Screen Negative 10/18/19 23:26 D/w Dr. Hoskins who requests ESR/CRP, given that pt is being worked up by an independent producer. 10/18/19 23:35 ESR/CRP mildly elevated. D/w values with Dr. Hoskins, who states that he is comfortable with the patient being discharged and following up with him in the office tomorrow at 1pm. Pt reassessed and does not have any acute vision change, no temporal tenderness, no jaw claudication. Shared decision making with the patient and daughter, who state that they would like to go home and follow up with Dr. Hoskins. Pt's daughter is reliable support system. Plan to d/c home with neuro f/u tomorrow. Strict return precautions given. All questions answered. Pt and daughter verbalized understanding and agreement with plan. Discharge - Discharge Information Problems reviewed: Yes Clinical Impression/Diagnosis: Fall Qualifiers: Encounter type: initial encounter Qualified Code(s): W19.XXXA - Unspecified fall, initial encounter Condition: Stable Disposition: HOME - Admission No - Follow up/Referral Referrals: Venkat Peraza MD [Primary Care Provider] - Eda Hoskins MD [Staff Physician] - - Patient Discharge Instructions Patient Printed Discharge Instructions: How to Prevent Falls Additional Instructions: Please follow up with Dr. Hoskins's office tomorrow at 1pm. Please continue taking all of your medications as prescribed. If you experience any new, worsening, or concerning symptoms, including vision changes, jaw pain, headache, numbness/tingling, loss of consciousness, or any other concerns, please return to the emergency department. - Post Discharge Activity
[2019-10-18 21:26] VITALS: PULSE 50; TEMP 97.6; BMI 20.2
[2019-10-18 21:53] LABS: BASO % 0.4 % (0-2.0); EOS % 0.4 % (0-4.5); HEMATOCRIT 41.1 % (32.4-45.2); HEMOGLOBIN 13.3 GM/dL (10.7-15.3); LYMPH % 13.3 % (8-40); MCH 29.7 pg (25.7-33.7); MCHC 32.3 g/dl (32.0-36.0); MEAN CELL VOLUME 91.8 fl (80-96); MEAN PLT VOLUME 8.2 fl (7.5-11.1); MONO % 8.9 % (3.8-10.2); PLATELET COUNT 350 K/MM3 (134-434); RBC 4.48 M/mm3 (3.60-5.2); RDW 14.8 % (11.6-15.6); WHITE BLOOD COUNT 10.1 K/mm3 (4.0-10.0)
[2019-10-18 22:02] LABS: INR 1.56 (0.83-1.09); PROTHROMBIN TIME (PATIENT) 18.5 SEC (9.7-13.0)
[2019-10-18 22:05] LABS: ACTIVATED PTT 30.6 SECONDS (25.2-36.5)
[2019-10-18 22:15] LABS: ALBUMIN 3.5 g/dl (3.4-5.0); ALK PHOS 125 U/L (45-117); ANION GAP 8 MMOL/L (8-16); BILIRUBIN,TOTAL 0.5 mg/dL (0.2-1); CALCIUM 9.9 mg/dL (8.5-10.1); CHLORIDE 98 mmol/L (98-107); CO2 32 mmol/L (21-32); CREATININE 0.7 mg/dL (0.55-1.3); POTASSIUM 3.5 mmol/L (3.5-5.1); SGOT/AST 32 U/L (15-37); SGPT/ALT 27 U/L (13-61); SODIUM 138 mmol/L (136-145); TOT PROT 7.5 g/dl (6.4-8.2)
[2019-10-18 22:46] LABS: GLUCOSE,RANDOM 283 mg/dL (74-106)
[2019-10-18 23:45] LABS: ERYTHROCYTE SEDIMENTATION RATE 56 mm/hr (0-30)
[2019-10-19 00:11] VITALS: BP 157/68
--- NOTE | 2019-10-19 09:56 | EKG ---
Test Reason : Blood Pressure : / mmHG Vent. Rate : 050 BPM Atrial Rate : 375 BPM P-R Int : 000 ms QRS Dur : 178 ms QT Int : 518 ms P-R-T Axes : 000 -69 087 degrees QTc Int : 472 ms POOR DATA QUALITY, INTERPRETATION MAY BE ADVERSELY AFFECTED Ventricular-paced rhythm ABNORMAL ECG WHEN COMPARED WITH ECG OF 12-MAY-2016 09:48, ELECTRONIC VENTRICULAR PACEMAKER Present VENT. RATE HAS DECREASED BY 24 BPM Confirmed by Mckenna Irene ([id number]) on 10/19/2019 9:55:42 AM Referred By: Confirmed By:Mckenna Irene
== END 2019-10-19 00:13 | disposition home or self-care (01) ==
LOC: JER 20:38
DX: R50.9 Fever, unspecified (principal)
CPT/HCPCS: 36415; 70450-TC; 71045-TC-FY; 72125-TC; 80053; 82550; 84484; 85025; 85610; 85651; 85730; 86140; 86850; 86900; 86901; 93005; 93010; 99285-25

== ENCOUNTER 2019-10-19 13:34 | Inpatient (IN) | payer OTHER ==
--- NOTE | 2019-10-19 13:46 | PDOC ---
History of Present Illness - General Stated Complaint: FALL/BACK PAIN Time Seen by Provider: 10/19/19 13:46 History Source: Patient, Spouse Exam Limitations: Dementia - History of Present Illness Initial Comments: 10/19/19 14:17 HPI: This is an 84 y/o female with afib on eliquis, HTN, HLD, COPD, gastritis, GERD, lower back pain, OA, osteopenia, and recent recurrent falls presenting to the ED due to 2x falls today. The first time she rolled out of bed, and the second time she slid out of her chair. She is unable to explain how she fell. She reports that she hit her head both times, but is unsure about LOC. Denies any preceding lightheadedness, chest pain, SOB, or LOC. She is currently only complaining of lower back pain, which is chronic but worse now. Per her daughter she was not falling prior to yesterday, and was ambulating with a cane. The falls are new. She was supposed to see her neurologist Dr. Hoskins today, however she fell and had to come to the ED. ROS: GENERAL/CONSTITUTIONAL: No fever/chills. Yes weakness. HEAD, EYES, EARS, NOSE AND THROAT: No blurry vision. CARDIOVASCULAR: No chest pain or shortness of breath. RESPIRATORY: No cough, wheezing, or hemoptysis. GASTROINTESTINAL: No nausea, vomiting GENITOURINARY: No dysuria, frequency MUSCULOSKELETAL: Lower lumbar pain. No cervical or thoracic pain. SKIN: No rash NEUROLOGIC: No headache or change in strength/sensation. HEMATOLOGIC/LYMPHATIC: On blood thinners. PCP: Dr. Peraza Neurologist: Dr. Win PMH: A-fib on eliquis, HTN, HLD, COPD, gastritis, GERD, lower back pain, OA, osteopenia Meds: See nurses note Allergies: Atropine PE: GENERAL: Awake, alert, and fully oriented x3 HEAD: No signs of trauma EYES: EOMI. Left pupil PERRLA. Right pupil reactive accommodation not light. NECK: Normal ROM, supple, no lymphadenopathy, JVD, or masses LUNGS: Breath sounds equal, clear to auscultation bilaterally. No wheezes, and no crackles HEART: Regular rate and rhythm, normal S1 and S2 ABDOMEN: Soft, nontender, normoactive bowel sounds. No guarding, no rebound. No masses EXTREMITIES: Decreased ROM in legs due to pain, no edema. No clubbing or cyanosis. No cords, erythema, or tenderness NEUROLOGICAL: Cranial nerves II through XII grossly intact. Normal speech. Sensation and strength intact in bilateral extremities. MUSCULOSKELETAL: No cervical spinal tenderness. Tenderness to palpation lower thoracic spine, and lumbar spine. 10/19/19 14:34 MDM: This is an 84 y/o female with afib on eliquis, HTN, HLD, COPD, gastritis, GERD, lower back pain, OA, osteopenia, and recurrent falls presenting to the ED due to 2x falls today. The first time she rolled out of bed, and the second time she slid out of her chair. She reports that she hit her head both times, but is unsure about LOC. Denies any preceding lightheadedness, chest pain, SOB, or LOC. She is currently only complaining of lower back pain, which is chronic but worse now. - r/o ACS, r/o intracranial bleed vs infection - CBC - CMP - EKG - CT head, neck, chest, thoracic, lumbar - Cardiac profile 10/19/19 14:51 CBC WBC 11.6 K/mm3 (4.0-10.0) H 10/19/19 14:15 RBC 4.35 M/mm3 (3.60-5.2) 10/19/19 14:15 Hgb 13.0 GM/dL (10.7-15.3) 10/19/19 14:15 Hct 39.5 % (32.4-45.2) 10/19/19 14:15 MCV 90.8 fl (80-96) 10/19/19 14:15 MCH 29.8 pg (25.7-33.7) 10/19/19 14:15 MCHC 32.8 g/dl (32.0-36.0) 10/19/19 14:15 RDW 14.9 % (11.6-15.6) 10/19/19 14:15 Plt Count 315 K/MM3 (134-434) 10/19/19 14:15 MPV 7.5 fl (7.5-11.1) 10/19/19 14:15 Absolute Neuts (auto) 9.8 K/mm3 (1.5-8.0) H 10/19/19 14:15 Neutrophils % 84.0 % (42.8-82.8) H 10/19/19 14:15 Lymphocytes % 8.1 % (8-40) D 10/19/19 14:15 Monocytes % 7.5 % (3.8-10.2) 10/19/19 14:15 Eosinophils % 0.1 % (0-4.5) 10/19/19 14:15 Basophils % 0.3 % (0-2.0) 10/19/19 14:15 Nucleated RBC % 0 % (0-0) 10/19/19 14:15 Leukocytosis trending upwards from yesterday. No anemia. CMP Sodium 138 mmol/L (136-145) 10/19/19 14:15 Potassium 3.3 mmol/L (3.5-5.1) L 10/19/19 14:15 Chloride 98 mmol/L (98-107) 10/19/19 14:15 Carbon Dioxide 31 mmol/L (21-32) 10/19/19 14:15 Anion Gap 8 MMOL/L (8-16) 10/19/19 14:15 BUN 10.6 mg/dL (7-18) 10/19/19 14:15 Creatinine 0.5 mg/dL (0.55-1.3) L 10/19/19 14:15 Est GFR (CKD-EPI)AfAm 101.57 10/19/19 14:15 Est GFR (CKD-EPI)NonAf 87.64 10/19/19 14:15 Random Glucose 203 mg/dL (74-106) H 10/19/19 14:15 Calcium 9.4 mg/dL (8.5-10.1) 10/19/19 14:15 Total Bilirubin 0.6 mg/dL (0.2-1) 10/19/19 14:15 AST 31 U/L (15-37) 10/19/19 14:15 ALT 29 U/L (13-61) 10/19/19 14:15 Alkaline Phosphatase 113 U/L (45-117) 10/19/19 14:15 Creatine Kinase 65 U/L (26-192) 10/19/19 14:15 Troponin I < 0.02 ng/ml (0.00-0.05) 10/19/19 14:15 Total Protein 6.9 g/dl (6.4-8.2) 10/19/19 14:15 Albumin 3.2 g/dl (3.4-5.0) L 10/19/19 14:15 Hypokalemia at 3.3 Troponin negative 10/19/19 17:32 CT scan of the brain. Impression: Right thalamic and cerebellar chronic lacunar infarct. Otherwise, no gross CT evidence of acute intracranial pathology is identified. The georgie varium is intact CT scan of the cervical spine without intravenous contrast IMPRESSION: No significant interval change. The alignment is satisfactory. No gr oss fracture or subluxation is seen. Multilevel marked degenerative disc disease with anterior spondylosis and mild to moderate disc osteophyte complex, as described above CT scan of the thoracic spine without intravenous contrast IMPRESSION: Moderate compression of T6 vertebral body with mild retropulsion of its posterior margin, likely chronic. Cannot rule out any underlying neoplastic process. No significant compromise of the spinal canal. Acute horizontal fracture of T7 vertebral body without compromise of the spinal canal. Multilevel marked degenerative disc disease, as described above CT scan of the lumbar spine without intravenous contrast. Impression: Severe levoscoliosis of the lumbar spine with grade 1 anterolisthesis of L5 over S1 as well as lateral subluxation of L4 over L5, best visualized on the coronal reformatted images. No gross acute fracture is identified. Multilevel posterior fusion of the posterior spinous processes with likely postop changes. No paraspinal soft tissue mass is seen. Diverticulosis coli mainly in the sigmoid colon without evidence of acute diverticulitis. Evaluation of the rest of the abdomen is limited and only partially included on this exam. Correlate clinically to determine further evaluation. CT scan of the chest without intravenous contrast Impression: Atelectatic changes in lingular segment of the left upper lobe and in the left lung base, posteriorly without definite infiltrates. Correlate clinically and follow-up would be helpful for further evaluation. -Patient will need to be admitted to determine the case of her recent falls 10/19/19 17:56 - Microblogged symphony - Patient to be admitted to tele obs NIH Stroke Scale - Initial Evaluation Level of consciousness: Alert Ask patient the month and their age: Answers one correctly Ask patient to open & close eyes; make fist and let go: Obeys both correctly Best gaze (horizontal eye movement): Normal Visual field testing: No visual field loss Facial paresis (Show teeth/raise eyebrows/close eyes tight): Minor paralysis (flattened nasolabial fold, asymmetry on smiling) Motor Function: Left Arm: Drift Motor Function: Right Arm: Drift Motor Function: Left Leg: Normal (extends leg 30 degrees for 5 seconds without drift) Motor Function: Right Leg: Normal (extends leg 30 degrees for 5 seconds without drift) Limb Ataxia: No ataxia Sensory(Use pinprick test arms,legs,trunk,face/side to side): Normal Best language (Describe picture, name items, read sentences): No Aphasia Dysarthria (read several words): Normal articulation Extinction and Inattention: No abnormality - Total Score NIH Stroke Scale Score: 4 Past History - Medical History Allergies/Adverse Reactions: Allergies Allergy/AdvReac Type Severity Reaction Status Date / Time atropine AdvReac Severe Verified 10/19/19 13:50 tape Allergy Intermediate Rash Uncoded 10/19/19 13:50 Home Medications: Ambulatory Orders Atenolol [Tenormin -] 72 mg PO BID 05/10/16 Atorvastatin Ca [Lipitor] 40 mg PO HS #30 tablet 05/14/16 Apixaban [Eliquis] 2.5 mg PO BID 10/18/19 Biotin 1,000 mcg PO DAILY 10/18/19 Carbamazepine 400 mg PO BID 10/18/19 Cranberry Fruit Extract [Cranberry] 750 mg PO DAILY 10/18/19 Donepezil HCl [Aricept] 10 mg PO DAILY 10/18/19 Ferrous Sulfate 325 mg PO DAILY 10/18/19 Furosemide [Lasix] 40 mg PO DAILY 10/18/19 [place]-3 Fatty Acids/Fish Oil [Fish Oil 1,000 mg Capsule] 1 each PO DAILY 10/18/19 Potassium Gluconate [Potassium] 99 mg PO DAILY 10/18/19 Spironolactone 25 mg PO QID 10/18/19 Anemia: No Asthma: No Cancer: No Cardiac Disorders: Yes (PAROXYSMAL A-FIB) CVA: No COPD: No CHF: No Dementia: No Diabetes: No GI Disorders: Yes (IDIOPATHIC EROSIVE/HEMORRHAGIC GASTRITIS; DIVERTICULitis) Disorders: No HTN: Yes Hypercholesterolemia: Yes Liver Disease: No Seizures: No Thyroid Disease: Yes (nodule) - Surgical History Abdominal Surgery: No Appendectomy: Yes Cardiac Surgery: No Cholecystectomy: No Lung Surgery: No Neurologic Surgery: No Orthopedic Surgery: Yes (both HIP REPLACEMENT) - Immunization History Td Vaccination: Yes TDAP Vaccination: Yes Immunization Up to Date: No - Psycho-Social/Smoking History Smoking History: Former smoker Have you smoked in the past 12 months: No If you are a former smoker, when did you quit?: 40 YRS AGO Heart Score/ECG Review - ECG Intrepretation Comment:: 10/19/19 17:50 EKG ventricular paced rhythm QRS duration 174ms, QT/QTc 494/450 ED Treatment Course - LABORATORY CBC & Chemistry Diagram: 10/19/19 14:15 10/19/19 14:15 Discharge - Discharge Information Problems reviewed: Yes Clinical Impression/Diagnosis: Fall Qualifiers: Encounter type: initial encounter Qualified Code(s): W19.XXXA - Unspecified fall, initial encounter Condition: Stable - Admission Yes - Follow up/Referral - Patient Discharge Instructions - Post Discharge Activity
[2019-10-19 15:05] LABS: BASO % 0.3 % (0-2.0); EOS % 0.1 % (0-4.5); HEMATOCRIT 39.5 % (32.4-45.2); LYMPH % 8.1 % (8-40); MCH 29.8 pg (25.7-33.7); MCHC 32.8 g/dl (32.0-36.0); MEAN CELL VOLUME 90.8 fl (80-96); MEAN PLT VOLUME 7.5 fl (7.5-11.1); MONO % 7.5 % (3.8-10.2); PLATELET COUNT 315 K/MM3 (134-434); RBC 4.35 M/mm3 (3.60-5.2); RDW 14.9 % (11.6-15.6); WHITE BLOOD COUNT 11.6 K/mm3 (4.0-10.0)
[2019-10-19 15:11] LABS: INR 1.46 (0.83-1.09); PROTHROMBIN TIME (PATIENT) 17.3 SEC (9.7-13.0)
[2019-10-19 15:14] LABS: ACTIVATED PTT 29.2 SECONDS (25.2-36.5)
[2019-10-19 15:33] LABS: ALBUMIN 3.2 g/dl (3.4-5.0); ALK PHOS 113 U/L (45-117); ANION GAP 8 MMOL/L (8-16); BILIRUBIN,TOTAL 0.6 mg/dL (0.2-1); BLOOD UREA NITROGEN 10.6 mg/dL (7-18); CALCIUM 9.4 mg/dL (8.5-10.1); CHLORIDE 98 mmol/L (98-107); CO2 31 mmol/L (21-32); CREATININE 0.5 mg/dL (0.55-1.3); GLUCOSE,RANDOM 203 mg/dL (74-106); POTASSIUM 3.3 mmol/L (3.5-5.1); SGOT/AST 31 U/L (15-37); SGPT/ALT 29 U/L (13-61); SODIUM 138 mmol/L (136-145); TOT PROT 6.9 g/dl (6.4-8.2)
[2019-10-19] MEDS ORDERED: ACETAMINOPHEN 1000 MG/100 ML VIAL (NON FORMULARY) IVPB ONE (17:26)
[2019-10-19] MEDS ORDERED: ACETAMINOPHEN INJECTION 100 ML IVPB ONE (17:42)
--- NOTE | 2019-10-19 18:01 | PDOC ---
Documentation entered by Anabela Starkey SCRIBE, acting as scribe for Millie Mansfield MD. Millie Mansfield MD: This documentation has been prepared by the Lalito salvador Sydney, SCRIBE, under my direction and personally reviewed by me in its entirety. I confirm that the documentation accurately reflects all work, treatment, procedures, and medical decision making performed by me. Attending Attestation - Resident Resident Name: Amber Ku - ED Attending Attestation I have performed the following: I have examined & evaluated the patient, The case was reviewed & discussed with the resident, I agree w/resident's findings & plan, Exceptions are as noted - HPI HPI: 10/19/19 14:29 Patient is a 84 year old female with a significant past medical history of Afib (on eliquis), HTN, HLD, COPD, gastritis, GERD, lower back pain, OA, osteopenia, recurrent falls who presents to the ED s/p two falls today. As per patient, her first fall happened when she got out of bed this morning, and she slid out of her chair the second time. Patient endorses she hit her head both times, and currently notes exacerbation of her chronic lower back pain. Denies lightheadedness, chest pain, shortness of breath, or loss of cons ciousness. Allergies: Atropine, tape PCP: Dr. Peraza - Physicial Exam PE: 10/19/19 17:58 Agree with resident exam, add that pt has midline thoracic and lumbar ttp throughout. - Medical Decision Making 10/19/19 17:58 84yo F presnets to the ED after multiple falls. Unclear why pt is falling, does not give good mechanism for mechanical fall +head strike on anticoagulation, unclear LOC Plan for labs, trauma imaging of head, neck, spine given midline pain ANticipate admission given multiple falls, possible syncope, unsafe DC 10/19/19 18:33 +acute T7 horizontal fx, likely cause of back pain will control pain, admit Discharge - Discharge Information Problems reviewed: Yes Clinical Impression/Diagnosis: Fall Qualifiers: Encounter type: initial encounter Qualified Code(s): W19.XXXA - Unspecified fall, initial encounter Condition: Stable - Follow up/Referral - Patient Discharge Instructions - Post Discharge Activity
[2019-10-19 18:13] LABS: PH,URINE 5.5 (5.0-8.0); URINE APPEARANCE CLEAR; URINE BILIRUBIN NEGATIVE (NEGATIVE); URINE COLOR YELLOW; URINE GLUCOSE (UA) NEGATIVE (NEGATIVE); URINE KETONE NEGATIVE (NEGATIVE); URINE LEUK ESTERASE NEGATIVE (NEGATIVE); URINE NITRITE NEGATIVE (NEGATIVE); URINE PROTEIN NEGATIVE (NEGATIVE)
--- NOTE | 2019-10-19 19:51 | HP ---
Admitting History and Physical - Primary Care Physician PCP: Venkat Peraza - Admission Chief Complaint: s/p Fall, Near Syncope History of Present Illness: This is an 84 y/o female with afib on eliquis, HTN, HLD, COPD, gastritis, GERD, lower back pain, OA, osteopenia, and recent recurrent falls presenting to the ED due to 2x falls today. The first time she rolled out of bed, and the second time she slid out of her chair. She is unable to explain how she fell. She reports that she hit her head both times, but is unsure about LOC. Denies any preceding lightheadedness, chest pain, SOB, or LOC. She is currently only complaining of lower back pain, which is chronic but worse now. Per her daughter she was not falling prior to yesterday, and was ambulating with a cane. The falls are new. She was supposed to see her neurologist Dr. Hoskins today, however she fell and had to come to the ED. History Source: Family Member Limitations to Obtaining History: Clinical Condition, Dementia - Past Medical History Cardiovascular: Yes: AFIB, CAD, HTN, Hyperlipdemia Pulmonary: Yes: COPD Gastrointestinal: Yes: Gastritis, GERD Musculoskeletal: Yes: Chronic low back pain, Osteoarthritis Endocrine: Yes: Osteopenia - Past Surgical History Past Surgical History: Yes: Appendectomy, Colonoscopy, Joint Replacement - Smoking History Smoking history: Former smoker Have you smoked in the past 12 months: No If you are a former smoker, when did you quit?: 40 YRS AGO - Alcohol/Substance Use Hx Alcohol Use: Yes (DAILY WINE) History of Substance Use: reports: None - Social History Usual Living Arrangement: Yes: With Child ADL: Family Assistance History of Recent Travel: No Home Medications - Allergies Allergies/Adverse Reactions: Allergies Allergy/AdvReac Type Severity Reaction Status Date / Time atropine AdvReac Severe Verified 10/19/19 13:50 tape Allergy Intermediate Rash Uncoded 10/19/19 13:50 - Home Medications Home Medications: Ambulatory Orders Atenolol [Tenormin -] 72 mg PO BID 05/10/16 Atorvastatin Ca [Lipitor] 40 mg PO HS #30 tablet 05/14/16 Apixaban [Eliquis] 2.5 mg PO BID 10/18/19 Biotin 1,000 mcg PO DAILY 10/18/19 Carbamazepine 400 mg PO BID 10/18/19 Cranberry Fruit Extract [Cranberry] 750 mg PO DAILY 10/18/19 Donepezil HCl [Aricept] 10 mg PO DAILY 10/18/19 [place]-3 Fatty Acids/Fish Oil [Fish Oil 1,000 mg Capsule] 1 each PO DAILY 10/18/19 Acetaminophen [Tylenol .Regular Strength -] 650 mg PO Q6H PRN tablet 10/23/19 oxyCODONE HCL [Roxicodone -] 5 mg PO Q6H PRN tablet 10/23/19 Cefuroxime Axetil [Ceftin -] 500 mg PO BID tablet 10/27/19 Family Medical History Family History: Unable to Obtain Review of Systems - Review of Systems Constitutional: reports: No Symptoms Eyes: reports: No Symptoms HENT: reports: No Symptoms Neck: reports: No Symptoms Cardiovascular: reports: No Symptoms Respiratory: reports: No Symptoms Gastrointestinal: reports: No Symptoms Genitourinary: reports: No Symptoms Breasts: reports: No Symptoms Reported Musculoskeletal: reports: Back Pain Integumentary: reports: No Symptoms Neurological: reports: Syncope, Unsteady Gait Endocrine: reports: No Symptoms Hematology/Lymphatic: reports: No Symptoms Psychiatric: reports: No Symptoms Pain Intensity: 6 Physical Examination Vital Signs: Vital Signs Temperature 97.9 F 10/19/19 13:45 Pulse Rate 60 10/19/19 13:45 Respiratory Rate 16 10/19/19 13:45 Blood Pressure 141/71 10/19/19 13:45 O2 Sat by Pulse Oximetry (%) 98 10/19/19 14:11 Constitutional: Yes: Mild Distress, Thin Eyes: Yes: Conjunctiva Clear, EOM Intact, PERRL HENT: Yes: WNL, Atraumatic, Normocephalic Neck: Yes: WNL, Supple, Trachea Midline Cardiovascular: Yes: Regular Rate and Rhythm, S1, S2 Respiratory: Yes: WNL, Regular, CTA Bilaterally Gastrointestinal: Yes: Normal Bowel Sounds, Soft ...Rectal Exam: Yes: Deferred Renal/: Yes: WNL Breast(s): Yes: WNL Musculoskeletal: Yes: Back Pain Extremities: Yes: WNL Edema: No Peripheral Pulses WNL: Yes Neurological: Yes: Alert, Oriented (x2) ...Motor Strength: WNL Psychiatric: Yes: Alert, Oriented (x2) Labs: CBC, BMP 10/19/19 14:15 10/19/19 14:15 Imaging - Results Chest X-ray: Report Reviewed, Image Reviewed X-ray: Report Reviewed, Image Reviewed EKG: Image Reviewed Problem List - Problems (1) Near syncope Assessment/Plan: Likely secondary to arrhythmia Continue cardiac monitoring Serial Enzymes Appreciate Cardiology consult Carotid Doppler Monitor CBC, CMP Neurochecks Consider Neurology consult- will defer to primary team Orthostatics Code(s): R55 - SYNCOPE AND COLLAPSE (2) Fall Assessment/Plan: see above Thoracic CT- reviewed Ortho Consulted Head CT- reviewed C- spine CT reviewed Chest CT-reviewed Fall precautions PT eval Consider STR Tylenol prn Monitor vitals Code(s): W19.XXXA - UNSPECIFIED FALL, INITIAL ENCOUNTER Qualifiers: Encounter type: initial encounter Qualified Code(s): W19.XXXA - Unspecified fall, initial encounter (3) Back pain Assessment/Plan: see above Code(s): M54.9 - DORSALGIA, UNSPECIFIED (4) Hypercholesterolemia Assessment/Plan: stable Continue home med Monitor LFTs Code(s): E78.0 - PURE HYPERCHOLESTEROLEMIA * DO NOT USE * (5) Hypertension Assessment/Plan: stable Monitor BP Continue home meds with parameters Monitor renal function Code(s): I10 - ESSENTIAL (PRIMARY) HYPERTENSION Qualifiers: Hypertension type: essential hypertension Qualified Code(s): I10 - Essential (primary) hypertension (6) Hypokalemia Assessment/Plan: Likely secondary to Dehydration Repleted in ED Monitor CMP Replete as indicated Code(s): E87.6 - HYPOKALEMIA (7) Hypothyroid Assessment/Plan: stable Continue home med Code(s): E03.9 - HYPOTHYROIDISM, UNSPECIFIED Qualifiers: Hypothyroidism type: unspecified Qualified Code(s): E03.9 - Hypothyroidism, unspecified Assessment/Plan This is an 84 y/o female with afib on eliquis, HTN, HLD, COPD, gastritis, GERD, lower back pain, OA, osteopenia, recent recurrent falls. Placed in Telemetry for Near Syncope, Hypokalemia, Intractable Back Pain for further evaluation of their emergent condition. Plan: See Problem List FEN PO fluids as tolerated Replete lytes prn Low Na Diet DVT ppx OOB SCDs Continue Eliquis Dispo: Observation Visit type - Medication Review Med list reviewed for High Risk Meds patients 65 and older: No (Patient unable to verify home meds) - Emergency Visit Emergency Visit: Yes ED Registration Date: 10/19/19 Care time: The patient presented to the Emergency Department on the above date and was hospitalized for further evaluation of their emergent condition. - New Patient This patient is new to me today: Yes Date on this admission: 10/19/19 - Critical Care Critical Care patient: No
[2019-10-20] MEDS: ACETAMINOPHEN 325 MG TABLET (FP) PO PRN (01:02)
[2019-10-20] MEDS ORDERED: MORPHINE SULFATE 2 MG/ML VIAL IVPUSH ONE (01:59)
[2019-10-20] MEDS ORDERED: MORPHINE SULFATE 2 MG/ML VIAL ONE ×2 (02:13→10:33)
[2019-10-20 06:52] LABS: BASO % 0.5 % (0-2.0); EOS % 1.3 % (0-4.5); HEMATOCRIT 40.2 % (32.4-45.2); HEMOGLOBIN 13.2 GM/dL (10.7-15.3); MCH 29.7 pg (25.7-33.7); MCHC 32.8 g/dl (32.0-36.0); MEAN CELL VOLUME 90.5 fl (80-96); MEAN PLT VOLUME 7.4 fl (7.5-11.1); MONO % 6.3 % (3.8-10.2); NEUT % 80.9 % (42.8-82.8); PLATELET COUNT 303 K/MM3 (134-434); RBC 4.44 M/mm3 (3.60-5.2); RDW 14.7 % (11.6-15.6); WHITE BLOOD COUNT 9.8 K/mm3 (4.0-10.0)
[2019-10-20 07:26] LABS: ALBUMIN 2.9 g/dl (3.4-5.0); BILIRUBIN,TOTAL 0.7 mg/dL (0.2-1); BLOOD UREA NITROGEN 5.8 mg/dL (7-18); CALCIUM 9.2 mg/dL (8.5-10.1); CREATININE 0.4 mg/dL (0.55-1.3); MAGNESIUM 1.9 mg/dL (1.8-2.4); POTASSIUM 3.3 mmol/L (3.5-5.1); TOT PROT 6.3 g/dl (6.4-8.2)
--- NOTE | 2019-10-20 09:22 | PN ---
Progress Note, Physician History of Present Illness: 84 y/o female with afib on eliquis, HTN, HLD, COPD, gastritis, GERD, lower back pain, OA, osteopenia, and recent recurrent falls presenting to the ED due to 2x falls today. The first time she rolled out of bed, and the second time she slid out of her chair. She is unable to explain how she fell. She reports that she hit her head both times, but is unsure about LOC. Denies any preceding lig htheadedness, chest pain, SOB, or LOC. She is currently only complaining of lower back pain, which is chronic but worse now. - Current Medication List Current Medications: Active Medications Acetaminophen (Tylenol -) 650 mg PO Q6H PRN PRN Reason: PAIN LEVEL 4 - 6 Last Admin: 10/20/19 01:02 Dose: 650 mg Documented by: Apixaban (Eliquis -) 2.5 mg PO BID ANTHONY Donepezil HCl (Aricept -) 10 mg PO DAILY ANTHONY - Objective Vital Signs: Vital Signs Temperature 97.6 F 10/20/19 06:22 Pulse Rate 89 10/20/19 06:22 Respiratory Rate 14 10/20/19 06:22 Blood Pressure 136/68 10/20/19 06:22 O2 Sat by Pulse Oximetry (%) 91 L 10/20/19 06:22 Cardiovascular: Yes: Murmur, S1, S2 Respiratory: Yes: Regular, CTA Bilaterally Gastrointestinal: Yes: Normal Bowel Sounds, Soft Edema: No Neurological: Yes: Alert, Oriented, Unsteady Gait Labs: CBC, BMP 10/20/19 05:30 10/20/19 05:30 INR, PTT INR 1.46 (0.83-1.09) H 10/19/19 14:15 Problem List - Problems (1) Fall Assessment/Plan: PT eval monitor on tele to r/o arrythmia Code(s): W19.XXXA - UNSPECIFIED FALL, INITIAL ENCOUNTER Qualifiers: Encounter type: initial encounter Qualified Code(s): W19.XXXA - Unspecified fall, initial encounter (2) Atrial fibrillation Assessment/Plan: continue with eliquis Code(s): I48.91 - UNSPECIFIED ATRIAL FIBRILLATION Qualifiers: Atrial fibrillation type: permanent Qualified Code(s): I48.21 - Permanent atrial fibrillation (3) Hypothyroid Code(s): E03.9 - HYPOTHYROIDISM, UNSPECIFIED Qualifiers: Hypothyroidism type: unspecified Qualified Code(s): E03.9 - Hypothyroidism, unspecified (4) Pacemaker Assessment/Plan: cardio Code(s): Z95.0 - PRESENCE OF CARDIAC PACEMAKER (5) Hypokalemia Assessment/Plan: replace Code(s): E87.6 - HYPOKALEMIA (6) Back pain Assessment/Plan: Compression fx--old pain control pt Code(s): M54.9 - DORSALGIA, UNSPECIFIED
--- NOTE | 2019-10-20 09:42 | CON.ORTH ---
Consult Reason for Consultation:: T7 fx - Past Medical History Cardio/Vascular: Yes: AFIB, CAD, HTN, Hyperlipdemia Pulmonary: Yes: COPD Gastrointestinal: Yes: Gastritis, GERD Musculoskeletal: Yes: Chronic low back pain, Osteoarthritis Endocrine: Yes: Osteopenia - Past Surgical History Past Surgical History: Yes: Appendectomy, Colonoscopy, Joint Replacement - Alcohol/Substance Use Hx Alcohol Use: Yes (DAILY WINE) History of Substance Use: reports: None - Smoking History Smoking history: Former smoker Have you smoked in the past 12 months: No If you are a former smoker, when did you quit?: 40 YRS AGO - Social History ADL: Family Assistance History of Recent Travel: No Home Medications - Allergies Allergies/Adverse Reactions: Allergies Allergy/AdvReac Type Severity Reaction Status Date / Time atropine AdvReac Severe Verified 10/19/19 13:50 tape Allergy Intermediate Rash Uncoded 10/19/19 13:50 - Home Medications Home Medications: Ambulatory Orders Atenolol [Tenormin -] 72 mg PO BID 05/10/16 Atorvastatin Ca [Lipitor] 40 mg PO HS #30 tablet 05/14/16 Apixaban [Eliquis] 2.5 mg PO BID 10/18/19 Biotin 1,000 mcg PO DAILY 10/18/19 Carbamazepine 400 mg PO BID 10/18/19 Cranberry Fruit Extract [Cranberry] 750 mg PO DAILY 10/18/19 Donepezil HCl [Aricept] 10 mg PO DAILY 10/18/19 Ferrous Sulfate 325 mg PO DAILY 10/18/19 Furosemide [Lasix] 40 mg PO DAILY 10/18/19 [place]-3 Fatty Acids/Fish Oil [Fish Oil 1,000 mg Capsule] 1 each PO DAILY 10/18/19 Potassium Gluconate [Potassium] 99 mg PO DAILY 10/18/19 Spironolactone 25 mg PO QID 10/18/19 Physical Exam for Ortho Vital Signs: Vital Signs Temperature 97.6 F 10/20/19 06:22 Pulse Rate 89 10/20/19 06:22 Respiratory Rate 14 10/20/19 06:22 Blood Pressure 136/68 10/20/19 06:22 O2 Sat by Pulse Oximetry (%) 91 L 10/20/19 06:22 Neurological: Yes: WNL, Alert, Oriented Labs: CBC, BMP 10/20/19 05:30 10/20/19 05:30 INR, PTT INR 1.46 (0.83-1.09) H 10/19/19 14:15 - Upper Extremity Shoulder: Yes: Exam WNL - Affected Extremity Peripheral Pulses WNL: Yes Neuro/Vascular Assessment: Yes: Warm, [place], Normal Sensation Other Findings/Remarks: T-spine- + ttp T6-7, decr rom, no radiculopathy, nvi LS-spine- mild paraspinal ttp, decr rom, neg slr, nvi Imaging - Results Cat Scan: Report Reviewed, Image Reviewed Assessment/Plan 84 y/o female with afib on eliquis, HTN, HLD, COPD, gastritis, GERD, lower back pain, OA, osteopenia, and recent recurrent falls presenting to the ED due to 2x falls today. The first time she rolled out of bed, and the second time she slid out of her chair. She is unable to explain how she fell. She reports that she hit her head both times, but is unsure about LOC. Denies any preceding lightheadedness, chest pain, SOB, or LOC. She is c/o pain in her mid and lower back. Denies any bowel/bladder dysfunction, numbness or tingling. a/p- T7 vertebral body fx, chronic T6 compression fx will treat conservatively PT eval would recommend a TLSO brace but pt will not be able to tolerate pain control d/w Dr. Avery
[2019-10-20] MEDS: APIXABAN 2.5 MG TABLET PO SCH ×2 (10:00→21:14)
[2019-10-20] MEDS: DONEPEZIL HCL 10 MG TABLET (FP) PO SCH (10:00)
[2019-10-20] MEDS ORDERED: DONEPEZIL HCL 5 MG TABLET (FP) ONE (10:25)
[2019-10-20] MEDS ORDERED: APIXABAN 2.5 MG TABLET ONE (10:25)
[2019-10-20] MEDS ORDERED: POTASSIUM CHLORIDE TABS 10 MEQ TABLET.ER (FP) PO ONE (10:33)
--- NOTE | 2019-10-20 10:45 | EKG ---
Test Reason : Blood Pressure : / mmHG Vent. Rate : 050 BPM Atrial Rate : 046 BPM P-R Int : 000 ms QRS Dur : 174 ms QT Int : 494 ms P-R-T Axes : 000 -67 079 degrees QTc Int : 450 ms Ventricular-paced rhythm ABNORMAL ECG WHEN COMPARED WITH ECG OF 18-OCT-2019 21:13, NO SIGNIFICANT CHANGE WAS FOUND Confirmed by Damian Ann ([id number]) on 10/20/2019 10:44:56 AM Referred By: Confirmed By:Damian Ann
[2019-10-20] MEDS ORDERED: POTASSIUM CHLORIDE ORAL LIQUID 20 MEQ/15 ML ONE (11:27)
--- NOTE | 2019-10-20 11:52 | CONSULT ---
Consult Consult Specialty:: Physiatry consult Dr Ramesh for Dr Valadez - History of Present Illness Chief Complaint: mid- back pain History of Present Illness: This is an 84 year old woman with a medical history of dementia, CAD, A fib, HTN, HLD, COPD, GERD, gastritis, s/p appendectomy, osteopenia, scoliosis, OA, chronic LBP, who presented to the ED 10/19/2019 after [address] head, chest, cervical spine, thoracic spine and lumbar spine showed a chronic R thalamus and cerebellar lacunar infarcts; diffuse cervical marked DDD without acute pathology; thoracic marked DDD with acute T7 horizontal compression fx and moderate T6 compression fx; lumbar severe levoscoliosis with L5 over S1 anterolisthesis and L4 over L4 lateral subluxation; chest showed atelectasis ADRY and L lung base, as well as diverticulosis. Ortho was consulted for T6/ T7 fx, who recommended PT and TLSO. She was admitted to Telemetry for near syncope. She has not been seen by PT. Physiatry is being consulted for further recommendations. - Past Medical History Cardio/Vascular: Yes: AFIB, CAD, HTN, Hyperlipdemia Pulmonary: Yes: COPD Gastrointestinal: Yes: Gastritis, GERD Musculoskeletal: Yes: Chronic low back pain, Osteoarthritis Endocrine: Yes: Osteopenia - Past Surgical History Past Surgical History: Yes: Appendectomy, Colonoscopy, Joint Replacement - Alcohol/Substance Use Hx Alcohol Use: Yes (DAILY WINE) History of Substance Use: reports: None - Smoking History Smoking history: Former smoker Have you smoked in the past 12 months: No If you are a former smoker, when did you quit?: 40 YRS AGO - Social History Usual Living Arrangement: With Spouse (in elevator apartment, ambulated with NH but has RW as well) ADL: Family Assistance History of Recent Travel: No Home Medications - Allergies Allergies/Adverse Reactions: Allergies Allergy/AdvReac Type Severity Reaction Status Date / Time atropine AdvReac Severe Verified 10/19/19 13:50 tape Allergy Intermediate Rash Uncoded 10/19/19 13:50 - Home Medications Home Medications: Ambulatory Orders Atenolol [Tenormin -] 72 mg PO BID 05/10/16 Atorvastatin Ca [Lipitor] 40 mg PO HS #30 tablet 05/14/16 Apixaban [Eliquis] 2.5 mg PO BID 08/02/20 Biotin 1,000 mcg PO DAILY 10/18/19 Carbamazepine 400 mg PO BID 10/18/19 Cranberry Fruit Extract [Cranberry] 750 mg PO DAILY 10/18/19 Donepezil HCl [Aricept] 10 mg PO DAILY 10/18/19 Ferrous Sulfate 325 mg PO DAILY 10/18/19 Furosemide [Lasix] 40 mg PO DAILY 10/18/19 [place]-3 Fatty Acids/Fish Oil [Fish Oil 1,000 mg Capsule] 1 each PO DAILY 10/18/19 Potassium Gluconate [Potassium] 99 mg PO DAILY 10/18/19 Spironolactone 25 mg PO QID 10/18/19 Review of Systems Findings/Remarks: Denies fevers, chills, changes in hearing/ vision/ mood, CP, SOB, abdominal pain, nausea, vomiting, constipation, diarrhea, bowel/ bladder incontinence, dysuria, numbness/ paresthesias BUE/ BLE> Notes mid- back pain Physical Exam Vital Signs: Vital Signs Temperature 97.6 F 10/20/19 06:22 Pulse Rate 89 10/20/19 06:22 Respiratory Rate 14 10/20/19 06:22 Blood Pressure 136/68 10/20/19 06:22 O2 Sat by Pulse Oximetry (%) 91 L 10/20/19 06:22 Musculoskeletal: Yes: Other (General: calm elderly F lying on stretche r NAD but fatigued, awake and alert, not oriented to time; R shoulder flexion to 75 degrees, L shoulder flexion to 90 degrees, at least 4/5 BUE but limited by back pain, 4/5 B HF and 4+/5 BLE; no BLE pitting edema or B calf tenderness) Labs: CBC, BMP 10/20/19 05:30 10/20/19 05:30 Imaging - Results Cat Scan: Report Reviewed (as per HPI) Assessment/Plan Impression: 1) Deficits mobility/ ADLs 2) Falls 3) Chronic T6 and acute T7 compression fx 4) Diffuse spine DDD with scoliosis and chronic LBP 5) hx dementia 6) CAD, A fib, HTN, HLD 7) COPD 8) GERD, gastritis 9) s/p appendectomy 10) Diverticulosis 11) 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 12) Osteopenia 13) BMI WNL 14) Up to date flu shot/ pneumovax Recommendations: 1) PT for stretching strengthening ROM and functional mobility 2) Falls, safety precautions 3) Cardiopulmonary precautions 4) Ice mid- back prn; TLSO as per Ortho although pt unlikely to tolerate (although she reports she will try it) 5) DVT ppx: on Eliquis 6) Denies constipation on current bowel regimen 7) Skin protection: float heels, frequent turning 8) Continue plan per primary team 9) Discharge planning: given frequent falls and pain, she may benefit from inpatient rehabilitation once medically stable Thank you for this referral.
[2019-10-20] MEDS ORDERED: traMADol HCL 50 MG TABLET ONE (14:46)
[2019-10-20] MEDS: traMADol HCL 50 MG TABLET PO PRN (14:59)
--- NOTE | 2019-10-20 16:17 | CON.CARD ---
Consult Consult Specialty:: Cardiology Referred by:: Venkat Burgess Reason for Consultation:: CAD - History of Present Illness Chief Complaint: Post fall History of Present Illness: =84-year-old female with known history of coronary artery disease moderately obstructive coronary artery disease on coronary angiography/October 03, 2010 negative pharmacologic Dipyridamole myocardial perfusion imaging study for myocardial ischemia/June 16, 2013 status post non-ST segment elevation myocardial infarction/demand ischemic injury/May 10, 2016 negative pharmacologic Dipyridamole myocardial perfusion imaging study for myocardial ischemia/May 14, 2016 angina pectoris, diastolic/systolic left ventricular dysfunction with chronic class I-II [employer] [place] [employer] classification left ventricular failure (LVEF between 50-55% on echocardiography performed June 12, 2018), persistent atrial fibrillation/atypical atrial flutter/atrial tachycardia on chronic anticoagulation therapy with DOACs/Eliquis [id number] score of 6, sick sinus syndrome post permanent pacemaker implantation ([employer]'s [place] XT DR MRI conditional device- [id number]), mitral valve regurgitation moderate in severity on echocardiography performed May 14, 2016/June 12, 2018, aortic valve regurgitation mild to moderate in severity, tricuspid valve regurgitation moderate in severity with RVSP of 39 mmHg on echocardiography performed November 08, 2014/RVSP between 40-50 mmHg on echocardiography performed May 14, 2016/moderate to severe in severity with RVSP of 42 mmHg on echocardiography performed June 12, 2018, small pericardial effusion on echocardiography performed May 14, 2016- not evident on echocardiography performed June 12, 2018, hypertensive cardiovascular disease, pvc-ykbgttm-whehelzha diabetes mellitus, hypercholesterolemia, organic brain syndrome/dementia, trigeminal neuralgia- persistent symptomatology,hypothyroidism, currently off of Synthroid therapy(history ofmultinodular goiter), degenerative lumbosacral disc disease with chronic low back pain syndrome, degenerative joint disease status post total right hip replacement surgery, post traumatic right femur fracture post open reduction and internal fixation (November 14, 2015) and chronic anemia who was last evaluated in the officeJun2019. Since the above evaluation, patient presented to the ED due to 2x falls . The first time she rolled out of bed, and the second time she slid out of her chair. She is unable to explain how she fell. She reports that she hit her head both times, but is unsure about LOC. Denies any preceding lightheadedness, chest pain, SOB, or LOC. She is currently only complaining of lower back pain, which is chronic but worse now referable to acute T7 vertebral body fracture. Per her daughter she was not falling prior to yesterday, and was ambulating with a cane. - History Source History Provided By: Patient - Past Medical History Cardio/Vascular: Yes: AFIB, CAD, HTN, Hyperlipdemia Pulmonary: Yes: COPD Gastrointestinal: Yes: Gastritis, GERD Musculoskeletal: Yes: Chronic low back pain, Osteoarthritis Endocrine: Yes: Osteopenia - Past Surgical History Past Surgical History: Yes: Appendectomy, Colonoscopy, Joint Replacement - Alcohol/Substance Use Hx Alcohol Use: Yes (DAILY WINE) History of Substance Use: reports: None - Smoking History Smoking history: Former smoker Have you smoked in the past 12 months: No If you are a former smoker, when did you quit?: 40 YRS AGO - Social History Usual Living Arrangement: With Spouse (in elevator apartment, ambulated with SC but has RW as well) ADL: Family Assistance History of Recent Travel: No Home Medications - Allergies Allergies/Adverse Reactions: Allergies Allergy/AdvReac Type Severity Reaction Status Date / Time atropine AdvReac Severe Verified 10/19/19 13:50 tape Allergy Intermediate Rash Uncoded 10/19/19 13:50 - Home Medications Home Medications: Ambulatory Orders Atenolol [Tenormin -] 72 mg PO BID 05/10/16 Atorvastatin Ca [Lipitor] 40 mg PO HS #30 tablet 05/14/16 Apixaban [Eliquis] 2.5 mg PO BID 10/18/19 Biotin 1,000 mcg PO DAILY 10/18/19 Carbamazepine 400 mg PO BID 10/18/19 Cranberry Fruit Extract [Cranberry] 750 mg PO DAILY 10/18/19 Donepezil HCl [Aricept] 10 mg PO DAILY 10/18/19 Ferrous Sulfate 325 mg PO DAILY 10/18/19 Furosemide [Lasix] 40 mg PO DAILY 10/18/19 Florien-3 Fatty Acids/Fish Oil [Fish Oil 1,000 mg Capsule] 1 each PO DAILY 10/18/19 Potassium Gluconate [Potassium] 99 mg PO DAILY 10/18/19 Spironolactone 25 mg PO QID 10/18/19 Eszopiclone [Lunesta] 20 mg PO HS 10/20/19 Review of Systems - Review of Systems Musculoskeletal: reports: Back Pain Vital Signs: Vital Signs Temperature 98.0 F 10/20/19 15:26 Pulse Rate 65 10/20/19 15:26 Respiratory Rate 17 10/20/19 15:26 Blood Pressure 169/76 10/20/19 15:26 O2 Sat by Pulse Oximetry (%) 98 10/20/19 15:26 Constitutional: Yes: No Distress, Calm, Thin Neck: Yes: Supple Respiratory: Yes: Regular, CTA Bilaterally Gastrointestinal: Yes: Normal Bowel Sounds, Soft Cardiovascular: Yes: Regular Rate and Rhythm JVD: No Carotid Bruit: No Heart Sounds: Yes: S1, S2 Edema: No - Other Data Labs, Other Data: CBC, BMP 10/20/19 05:30 10/20/19 05:30 INR, PTT INR 1.46 (0.83-1.09) H 10/19/19 14:15 Troponin, BNP 10/19/19 10/20/19 21:40 05:30 Troponin I 0.03 0.02 Troponin, BNP 10/19/19 10/20/19 21:40 05:30 Troponin I 0.03 0.02 Afib v-paced @ 50 Ejection Fraction %: LVEF > or = 40 % Imaging - Results Cat Scan: Report Reviewed (ADRY and left base ATX) Problem List - Problems (1) Atrial fibrillation Code(s): I48.91 - UNSPECIFIED ATRIAL FIBRILLATION Qualifiers: Atrial fibrillation type: permanent Qualified Code(s): I48.21 - Permanent atrial fibrillation (2) Hypercholesterolemia Code(s): E78.0 - PURE HYPERCHOLESTEROLEMIA * DO NOT USE * (3) Hypertensive cardiovascular disease Code(s): I11.9 - HYPERTENSIVE HEART DISEASE WITHOUT HEART FAILURE Qualifiers: Heart failure presence: without heart failure Qualified Code(s): I11.9 - Hypertensive heart disease without heart failure (4) Hypothyroid Code(s): E03.9 - HYPOTHYROIDISM, UNSPECIFIED Qualifiers: Hypothyroidism type: unspecified Qualified Code(s): E03.9 - Hypothyroidism, unspecified (5) Pacemaker Code(s): Z95.0 - PRESENCE OF CARDIAC PACEMAKER Assessment/Plan 10/12/2019 Echo Conclusions: 1. LV size is normal. LV thickness is normal. Left ventricular systolic function is borderline normal. No segmental wall motion abnormalities present. 2. There is mild left atrial enlargement. There is mild right atrial enlargement. 3. Right ventricular size is normal. 4. The aortic valve is structurally normal. Mild to moderate aortic insufficiency is present. Aortic root dimension is normal. The ascending aorta is normal. 5. Mild thickening of the mitral valve leaflets. Mild to moderate mitral regurgitation is present. 6. The tricuspid valve is structurally normal. Mild tricuspid regurgitation is present. The structure of the pulmonic valve is normal. Mild pulmonary regurgitation is present. 7. No pericardial effusion. 8. The pulmonary artery systolic pressure is at least 29 mmHg based on an RA pressure of 3 mmHg. 9. Linear echodensity in right cardiac chamber c/w pacemaker lead. Clinical Correlation/Compared to previous: Compared to previous study on 06/12/18, there is no significant change. Echocardiography performed June 12, 2018 revealed normal left ventricular size with borderline left ventricular systolic function and estimated LVEF between 50-55%, moderate left atrial dilatation, moderate right atrial dilatation, mildly reduced right ventricular systolic function, aortic valve leaflet sclerosis without leaflet restriction and mild to moderate aortic valve regurgitation, moderate mitral valve regurgitation, moderate to severe tricuspid valve regurgitation with calculated RVSP of 42 mmHg, linear echodensity seen in the right cardiac chamber compatible with a pacemaker lead. Pharmacologic Dipyridamole myocardial perfusion imaging study performed May 14, 2016 revealed normal myocardial perfusion scan with normal left ventricular contraction pattern on LV gated analysis with calculated left ventricular ejection fraction of 59% Assessment: 1. Mechanical fall, T7 vertebral body fx, chronic T6 compression fx 2.Hypertensive cardiovascular disease 3. Coronary artery disease moderately obstructive coronary artery disease on coronary angiography/October 03, 2010 negative pharmacologic Dipyridamole myocardial perfusion imaging study for myocardial ischemia/May 14, 2016 angina pectoris, clinically stable. 4.Diastolic/systolic left ventricular dysfunction with chronic class I-II [employer] [place] [employer] classification left ventricular failure, clinically compensated/euvolemic(history of acute exacerbation). 5. Persistent atrial fibrillation/atypical atrial flutter/atrial tachycardia on chronic anticoagulation therapy with DOACs/Eliquis (adequate dosage age greater than 80 and weight less than 60 kg) [id number] score of 6, rate controlled. 6. Sinus node dysfunction/sick sinus syndrome, symptomatic post permanent pacemaker implantation [employer]'s MRI conditional device([employer]'s [place] XT DR MRI conditional device- [id number]). 7. Mitral valve regurgitation moderate in severity. 8. Aortic valve regurgitation mild to moderate in severity. 9. Tricuspid valve regurgitation moderate in severity with RVSP between 40-50 mmHg on echocardiography performed May 14, 2016/moderate to severe in severity with RVSP of 42 mmHg on echocardiography performed June 12, 2018. 10. Small pericardial effusion on echocardiography performed May 14, 2016- not evident on echocardiography performed June 12, 2018. 11. Dwy-pirxgxw-jfwjktrea diabetes mellitus. 12. Hypercholesterolemia. 13. History of organic brain syndrome/dementia. 14. History of trigeminal neuralgia. 15. History of hypothyroidism, currently off of Synthroid therapy(history ofmultinodular goiter). 16. History of degenerative lumbosacral disc disease with chronic low back pain syndrome. 17. History of degenerative joint disease status post total right hip replacement surgery. 18. History of traumatic right femur fracture post open reduction and internal fixation (November 14, 2015). 19. History of chronic anemia. Plan: 1. PT for gait training, analgesia as needed, TLSO brace as tolerated 2. Continue Atenolol 50 bid, Lipitor 40 qd, Aldactone 25 qd 3. Patient was advised to continue above medical therapy including continuation of anticoagulation ELiquis 2.5 bid indefinitely unless it is absolutely contraindicated considering the above-noted [id number] score of 6 4. Pacemaker interrogationas scheduled and continuationof remote pacemaker monitoring via [employer] service. 5. Thank you for consultative opportunity
[2019-10-21] MEDS: traMADol HCL 50 MG TABLET PO PRN ×3 (02:48→19:09)
[2019-10-21] MEDS: ACETAMINOPHEN 325 MG TABLET (FP) PO PRN ×3 (08:42→22:05)
[2019-10-21] MEDS: APIXABAN 2.5 MG TABLET PO SCH ×2 (09:01→22:07)
[2019-10-21] MEDS: DONEPEZIL HCL 10 MG TABLET (FP) PO SCH (09:01)
--- NOTE | 2019-10-21 10:06 | PN ---
Progress Note, Physician - Current Medication List Current Medications: Active Medications Acetaminophen (Tylenol -) 650 mg PO Q6H PRN PRN Reason: PAIN LEVEL 4 - 6 Last Admin: 10/21/19 08:42 Dose: 650 mg Documented by: Apixaban (Eliquis -) 2.5 mg PO BID [facility] Last Admin: 10/21/19 09:01 Dose: 2.5 mg Documented by: Donepezil HCl (Aricept -) 10 mg PO DAILY [facility] Last Admin: 10/21/19 09:01 Dose: 10 mg Documented by: Tramadol HCl (Ultram -) 50 mg PO Q8H PRN PRN Reason: PAIN LEVEL 6-10 Last Admin: 10/21/19 02:48 Dose: 50 mg Documented by: - Objective Vital Signs: Vital Signs Temperature 97.8 F 10/21/19 06:00 Pulse Rate 57 L 10/21/19 08:00 Respiratory Rate 10/21/19 08:00 Blood Pressure 119/57 L 10/21/19 08:00 O2 Sat by Pulse Oximetry (%) 97 10/21/19 08:46 Cardiovascular: Yes: Regular Rate and Rhythm Respiratory: Yes: Regular, CTA Bilaterally Gastrointestinal: Yes: Normal Bowel Sounds, Soft Labs: CBC, BMP 10/20/19 05:30 INR, PTT INR 1.46 (0.83-1.09) H 10/19/19 14:15 Problem List - Problems (1) Fall Assessment/Plan: PT eval monitor on tele to r/o arrythmia Code(s): W19.XXXA - UNSPECIFIED FALL, INITIAL ENCOUNTER Qualifiers: Encounter type: initial encounter Qualified Code(s): W19.XXXA - Unspecified fall, initial encounter (2) Atrial fibrillation Assessment/Plan: continue with eliquis rate 50--pacemaker interrogation Code(s): I48.91 - UNSPECIFIED ATRIAL FIBRILLATION Qualifiers: Atrial fibrillation type: permanent Qualified Code(s): I48.21 - Permanent atrial fibrillation (3) Hypothyroid Code(s): E03.9 - HYPOTHYROIDISM, UNSPECIFIED Qualifiers: Hypothyroidism type: unspecified Qualified Code(s): E03.9 - Hypothyroidism, unspecified (4) Pacemaker Assessment/Plan: cardio Code(s): Z95.0 - PRESENCE OF CARDIAC PACEMAKER (5) Hypokalemia Assessment/Plan: replace Code(s): E87.6 - HYPOKALEMIA (6) Back pain Assessment/Plan: Compression fx--old pain control pt Code(s): M54.9 - DORSALGIA, UNSPECIFIED
[2019-10-21 10:24] LABS: BLOOD UREA NITROGEN 7.3 mg/dL (7-18); CREATININE 0.4 mg/dL (0.55-1.3); POTASSIUM 3.4 mmol/L (3.5-5.1)
--- NOTE | 2019-10-21 12:42 | PN ---
Progress Note, Physician History of Present Illness: 84-year-old female with known history of coronary artery disease moderately obstructive coronary artery disease on coronary angiography/October 03, 2010 negative pharmacologic Dipyridamole myocardial perfusion imaging study for myocardial ischemia/June 16, 2013 status post non-ST segment elevation myocardial infarction/demand ischemic injury/May 10, 2016 negative pha rmacologic Dipyridamole myocardial perfusion imaging study for myocardial ischemia/May 14, 2016 angina pectoris, diastolic/systolic left ventricular dysfunction with chronic class I-II [employer] classification left ventricular failure (LVEF between 50-55% on echocardiography performed June 12, 2018), persistent atrial fibrillation/atypical atrial flutter/atrial tachycardia on chronic anticoagulation therapy with DOACs/Eliquis [id number] score of 6, sick sinus syndrome post permanent pacemaker implantation ([employer]'s [place] XT DR MRI conditional device- [id number] n [id number]), mitral valve regurgitation moderate in severity on echocardiography performed May 14, 2016/June 12, 2018, aortic valve regurgitation mild to moderate in severity, tricuspid valve regurgitation moderate in severity with RVSP of 39 mmHg on echocardiography performed November 08, 2014/RVSP between 40-50 mmHg on echocardiography performed May 14, 2016/moderate to severe in severity with RVSP of 42 mmHg on echocardiography performed June 12, 2018, small pericardial effusion on echocardiography performed May 14, 2016- not evident on echocardiography performed June 12, 2018, hypertensive cardiovascular disease, lnt-pdqqgxb-izjamutkq diabetes mellitus, hypercholesterolemia, organic brain syndrome/dementia, trigeminal neuralgia- persistent symptomatology,hypothyroidism, currently off of Synthroid therapy(history ofmultinodular goiter), degenerative lumbosacral disc disease with chronic low back pain syndrome, degenerative joint disease status post total right hip replacement surgery, post traumatic right femur fracture post open reduction and internal fixation (November 14, 2015) and chronic anemia who was last evaluated in the officeJun2019. Since the above evaluation, patient presented to the ED due to 2x falls . The first time she rolled out of bed, and the second time she slid out of her chair. She is unable to explain how she fell. She reports that she hit her head both times, but is unsure about LOC. Denies any preceding lightheadedness, chest pain, SOB, or LOC. She is currently only complaining of lower back pain, which is chronic but worse now referable to acute T7 vertebral body fracture. She reports left-sided reproducible chest wall pain, no events on telemetry. - Current Medication List Current Medications: Active Medications Acetaminophen (Tylenol -) 650 mg PO Q6H PRN PRN Reason: PAIN LEVEL 4 - 6 Last Admin: 10/21/19 08:42 Dose: 650 mg Documented by: Apixaban (Eliquis -) 2.5 mg PO BID [facility] Last Admin: 10/21/19 09:01 Dose: 2.5 mg Documented by: Donepezil HCl (Aricept -) 10 mg PO DAILY [facility] Last Admin: 10/21/19 09:01 Dose: 10 mg Documented by: Tramadol HCl (Ultram -) 50 mg PO Q8H PRN PRN Reason: PAIN LEVEL 6-10 Last Admin: 10/21/19 10:57 Dose: 50 mg Documented by: - Objective Vital Signs: Vital Signs Temperature 97.9 F 10/21/19 12:00 Pulse Rate 60 10/21/19 12:00 Respiratory Rate 20 10/21/19 12:00 Blood Pressure 118/53 L 10/21/19 12:00 O2 Sat by Pulse Oximetry (%) 99 10/21/19 12:00 Constitutional: Yes: No Distress, Calm Neck: Yes: Supple Cardiovascular: Yes: Regular Rate and Rhythm Respiratory: Yes: Regular, CTA Bilaterally Gastrointestinal: Yes: Normal Bowel Sounds, Soft Edema: No Labs: CBC, BMP 10/20/19 05:30 10/21/19 09:12 INR, PTT INR 1.46 (0.83-1.09) H 10/19/19 14:15 Problem List - Problems (1) Pacemaker Code(s): Z95.0 - PRESENCE OF CARDIAC PACEMAKER (2) Atrial fibrillation Code(s): I48.91 - UNSPECIFIED ATRIAL FIBRILLATION Qualifiers: Atrial fibrillation type: permanent Qualified Code(s): I48.21 - Permanent atrial fibrillation (3) Hypercholesterolemia Code(s): E78.0 - PURE HYPERCHOLESTEROLEMIA * DO NOT USE * (4) Hypertensive cardiovascular disease Code(s): I11.9 - HYPERTENSIVE HEART DISEASE WITHOUT HEART FAILURE Qualifiers: Heart failure presence: without heart failure Qualified Code(s): I11.9 - Hypertensive heart disease without heart failure (5) Hypothyroid Code(s): E03.9 - HYPOTHYROIDISM, UNSPECIFIED Qualifiers: Hypothyroidism type: unspecified Qualified Code(s): E03.9 - Hypothyroidism, unspecified Assessment/Plan 10/12/2019 Echo Conclusions: 1. LV size is normal. LV thickness is normal. Left ventricular systolic function is borderline normal. No segmental wall motion abnormalities present. 2. There is mild left atrial enlargement. There is mild right atrial enlargement. 3. Right ventricular size is normal. 4. The aortic valve is structurally normal. Mild to moderate aortic insufficiency is present. Aortic root dimension is normal. The ascending aorta is normal. 5. Mild thickening of the mitral valve leaflets. Mild to moderate mitral regurgitation is present. 6. The tricuspid valve is structurally normal. Mild tricuspid regurgitation is present. The structure of the pulmonic valve is normal. Mild pulmonary regurgitation is present. 7. No pericardial effusion. 8. The pulmonary artery systolic pressure is at least 29 mmHg based on an RA pressure of 3 mmHg. 9. Linear echodensity in right cardiac chamber c/w pacemaker lead. Clinical Correlation/Compared to previous: Compared to previous study on 06/12/18, there is no significant change. Echocardiography performed June 12, 2018 revealed normal left ventricular size with borderline left ventricular systolic function and estimated LVEF between 50-55%, moderate left atrial dilatation, moderate right atrial dilatation, mildly reduced right ventricular systolic function, aortic valve leaflet sclerosis without leaflet restriction and mild to moderate aortic valve regurgitation, moderate mitral valve regurgitation, moderate to severe tricuspid valve regurgitation with calculated RVSP of 42 mmHg, linear echodensity seen in the right cardiac chamber compatible with a pacemaker lead. Pharmacologic Dipyridamole myocardial perfusion imaging study performed May 14, 2016 revealed normal myocardial perfusion scan with normal left ventricular contraction pattern on LV gated analysis with calculated left ventricular ejection fraction of 59% Assessment: 1. Mechanical fall, T7 vertebral body fx, chronic T6 compression fx 2.Hypertensive cardiovascular disease 3. Coronary artery disease moderately obstructive coronary artery disease on coronary angiography/October 03, 2010 negative pharmacologic Dipyridamole myocardial perfusion imaging study for myocardial ischemia/May 14, 2016 angina pectoris, clinically stable. 4.Diastolic/systolic left ventricular dysfunction with chronic class I-II [employer] classification left ventricular failure, clinically compensated/euvolemic(history of acute exacerbation). 5. Persistent atrial fibrillation/atypical atrial flutter/atrial tachycardia on chronic anticoagulation therapy with DOACs/Eliquis (adequate dosage age greater than 80 and weight less than 60 kg) [id number] score of 6, rate controlled. 6. Sinus node dysfunction/sick sinus syndrome, symptomatic post permanent pacemaker implantation [employer]'s MRI conditional device([employer]'s [place] XT DR MRI conditional device- [id number]). 7. Mitral valve regurgitation moderate in severity. 8. Aortic valve regurgitation mild to moderate in severity. 9. Tricuspid valve regurgitation moderate in severity with RVSP between 40-50 mmHg on echocardiography performed May 14, 2016/moderate to severe in severity with RVSP of 42 mmHg on echocardiography performed June 12, 2018. 10. Small pericardial effusion on echocardiography performed May 14, 2016- not evident on echocardiography performed June 12, 2018. 11. Tmo-ocegunf-eyptiytnr diabetes mellitus. 12. Hypercholesterolemia. 13. History of organic brain syndrome/dementia. 14. History of trigeminal neuralgia. 15. History of hypothyroidism, currently off of Synthroid therapy(history ofmultinodular goiter). 16. History of degenerative lumbosacral disc disease with chronic low back pain syndrome. 17. History of degenerative joint disease status post total right hip replacement surgery. 18. History of traumatic right femur fracture post open reduction and internal fixation (November 14, 2015). 19. History of chronic anemia. Plan: 1. PT for gait training, analgesia as needed, TLSO brace as tolerated 2. Resume Atenolol 50 qd, Lipitor 40 qd, Aldactone 25 qd as hemodynamics tolerate 3. Continue Eliquis 2.5 bid 4. Pacemaker interrogationas scheduled and continuationof remote pacemaker monitoring via [employer] service.
[2019-10-21] MEDS ORDERED: POTASSIUM CHLORIDE TABS 20 MEQ TABLET.ER (FP) PO ONE (13:30)
[2019-10-21] MEDS ORDERED: HYDROmorphone HCl 2 MG/ML VIAL IVPB ONE (13:31)
[2019-10-21] MEDS: carBAMazepine 200 MG TABLET PO SCH (22:05)
[2019-10-21] MEDS: ATORVASTATIN CA 40 MG TABLET (FP) PO SCH (22:07)
[2019-10-21] MEDS: ATENOLOL 25 MG TABLET (FP) PO SCH (22:08)
[2019-10-22] MEDS: traMADol HCL 50 MG TABLET PO PRN (02:41)
[2019-10-22 06:52] LABS: BASO % 0.7 % (0-2.0); EOS % 2.9 % (0-4.5); HEMATOCRIT 39.9 % (32.4-45.2); HEMOGLOBIN 13.2 GM/dL (10.7-15.3); LYMPH % 9.6 % (8-40); MCH 29.9 pg (25.7-33.7); MEAN CELL VOLUME 90.7 fl (80-96); MEAN PLT VOLUME 7.4 fl (7.5-11.1); MONO % 9.2 % (3.8-10.2); NEUT % 77.6 % (42.8-82.8); PLATELET COUNT 320 K/MM3 (134-434); RDW 14.9 % (11.6-15.6); WHITE BLOOD COUNT 9.5 K/mm3 (4.0-10.0)
[2019-10-22 07:32] LABS: ALBUMIN 2.8 g/dl (3.4-5.0); BILIRUBIN,TOTAL 0.9 mg/dL (0.2-1); BLOOD UREA NITROGEN 7.4 mg/dL (7-18); CALCIUM 8.9 mg/dL (8.5-10.1); CREATININE 0.4 mg/dL (0.55-1.3); POTASSIUM 4.1 mmol/L (3.5-5.1); TOT PROT 6.1 g/dl (6.4-8.2)
[2019-10-22] MEDS ORDERED: PT OWN MED DRAWER 7, Y5N ONE ×3 (08:52→22:14)
--- NOTE | 2019-10-22 08:54 | PN ---
Progress Note, Physician - Current Medication List Current Medications: Active Medications Acetaminophen (Tylenol -) 650 mg PO Q6H PRN PRN Reason: PAIN LEVEL 4 - 6 Last Admin: 10/21/19 22:05 Dose: 650 mg Documented by: Apixaban (Eliquis -) 2.5 mg PO BID [facility] Last Admin: 10/21/19 22:07 Dose: 2.5 mg Documented by: Atenolol (Tenormin -) 25 mg PO BID [facility] Last Admin: 10/21/19 22:08 Dose: 25 mg Documented by: Atorvastatin Calcium (Lipitor -) 40 mg PO HS [facility] Last Admin: 10/21/19 22:07 Dose: 40 mg Documented by: Carbamazepine (Tegretol -) 400 mg PO BID [facility] Last Admin: 10/21/19 22:05 Dose: 400 mg Documented by: Donepezil HCl (Aricept -) 10 mg PO DAILY [facility] Last Admin: 10/21/19 09:01 Dose: 10 mg Documented by: Tramadol HCl (Ultram -) 50 mg PO Q8H PRN PRN Reason: PAIN LEVEL 6-10 Last Admin: 10/22/19 02:41 Dose: 50 mg Documented by: - Objective Vital Signs: Vital Signs Temperature 97.8 F 10/22/19 06:00 Pulse Rate 81 10/22/19 06:00 Respiratory Rate 20 10/22/19 06:00 Blood Pressure 136/84 10/22/19 06:00 O2 Sat by Pulse Oximetry (%) 99 10/22/19 02:00 Cardiovascular: Yes: S1, S2 Respiratory: Yes: Regular, CTA Bilaterally Gastrointestinal: Yes: Normal Bowel Sounds, Soft Labs: CBC, BMP 10/22/19 06:05 10/22/19 06:05 INR, PTT INR 1.46 (0.83-1.09) H 10/19/19 14:15 Problem List - Problems (1) Fall Assessment/Plan: PT eval monitor on tele to r/o arrythmia Code(s): W19.XXXA - UNSPECIFIED FALL, INITIAL ENCOUNTER Qualifiers: Encounter type: initial encounter Qualified Code(s): W19.XXXA - Unspecified fall, initial encounter (2) Atrial fibrillation Assessment/Plan: continue with eliquis rate 50--pacemaker interrogation Code(s): I48.91 - UNSPECIFIED ATRIAL FIBRILLATION Qualifiers: Atrial fibrillation type: permanent Qualified Code(s): I48.21 - Permanent atrial fibrillation (3) Hypothyroid Code(s): E03.9 - HYPOTHYROIDISM, UNSPECIFIED Qualifiers: Hypothyroidism type: unspecified Qualified Code(s): E03.9 - Hypothyroidism, unspecified (4) Pacemaker Assessment/Plan: cardio Code(s): Z95.0 - PRESENCE OF CARDIAC PACEMAKER (5) Hypokalemia Assessment/Plan: replace Code(s): E87.6 - HYPOKALEMIA (6) Back pain Assessment/Plan: Compression fx--old pain control pt Code(s): M54.9 - DORSALGIA, UNSPECIFIED
[2019-10-22] MEDS: APIXABAN 2.5 MG TABLET PO SCH ×2 (09:21→22:19)
[2019-10-22] MEDS: DONEPEZIL HCL 10 MG TABLET (FP) PO SCH (09:21)
[2019-10-22] MEDS: ACETAMINOPHEN 325 MG TABLET (FP) PO PRN ×2 (09:22→17:56)
[2019-10-22] MEDS: ATENOLOL 25 MG TABLET (FP) PO SCH ×2 (09:22→22:19)
[2019-10-22] MEDS: carBAMazepine 200 MG TABLET PO SCH ×2 (09:22→22:19)
--- NOTE | 2019-10-22 09:31 | PN ---
Progress Note, Physician History of Present Illness: =84-year-old female with known history of coronary artery disease moderately obstructive coronary artery disease on coronary angiography/October 03, 2010 negative pharmacologic Dipyridamole myocardial perfusion imaging study for myocardial ischemia/June 16, 2013 status post non-ST segment elevation myocardial infarction/demand ischemic injury/May 10, 2016 negative pha rmacologic Dipyridamole myocardial perfusion imaging study for myocardial ischemia/May 14, 2016 angina pectoris, diastolic/systolic left ventricular dysfunction with chronic class I-II [place] Heart Association classification left ventricular failure (LVEF between 50-55% on echocardiography performed June 12, 2018), persistent atrial fibrillation/atypical atrial flutter/atrial tachycardia on chronic anticoagulation therapy with DOACs/Eliquis [id number] score of 6, sick sinus syndrome post permanent pacemaker implantation ([employer]'s Chhaya XT DR MRI conditional device- [id number]), mitral valve regurgitation moderate in severity on echocardiography performed May 14, 2016/June 12, 2018, aortic valve regurgitation mild to moderate in severity, tricuspid valve regurgitation moderate in severity with RVSP of 39 mmHg on echocardiography performed November 08, 2014/RVSP between 40-50 mmHg on echocardiography performed May 14, 2016/moderate to severe in severity with RVSP of 42 mmHg on echocardiography performed June 12, 2018, small pericardial effusion on echocardiography performed May 14, 2016- not evident on echocardiography performed June 12, 2018, hypertensive cardiovascular disease, [id number] diabetes mellitus, hypercholesterolemia, organic brain syndrome/dementia, trigeminal neuralgia- persistent symptomatology,hypothyroidism, currently off of Synthroid therapy(history ofmultinodular goiter), degenerative lumbosacral disc disease with chronic low back pain syndrome, degenerative joint disease status post total right hip replacement surgery, post traumatic right femur fracture post open reduction and internal fixation (November 14, 2015) and chronic anemia who was last evaluated in the officeJun2019. Since the above evaluation, patient presented to the ED due to 2x falls . The first time she rolled out of bed, and the second time she slid out of her chair. She is unable to explain how she fell. She reports that she hit her head both times, but is unsure about LOC. Denies any preceding lightheadedness, chest pain, SOB, or LOC. She is currently reporting improving lower back pain, which is chronic but worse now referable to acute T7 vertebral body fracture. Pacemaker interrogated normal fxn, 12.6 years left. - Current Medication List Current Medications: Active Medications Acetaminophen (Tylenol -) 650 mg PO Q6H PRN PRN Reason: PAIN LEVEL 4 - 6 Last Admin: 10/21/19 22:05 Dose: 650 mg Documented by: Apixaban (Eliquis -) 2.5 mg PO BID [facility] Last Admin: 10/21/19 22:07 Dose: 2.5 mg Documented by: Atenolol (Tenormin -) 25 mg PO BID [facility] Last Admin: 10/21/19 22:08 Dose: 25 mg Documented by: Atorvastatin Calcium (Lipitor -) 40 mg PO HS [facility] Last Admin: 10/21/19 22:07 Dose: 40 mg Documented by: Carbamazepine (Tegretol -) 400 mg PO BID [facility] Last Admin: 10/21/19 22:05 Dose: 400 mg Documented by: Donepezil HCl (Aricept -) 10 mg PO DAILY [facility] Last Admin: 10/21/19 09:01 Dose: 10 mg Documented by: Tramadol HCl (Ultram -) 50 mg PO Q8H PRN PRN Reason: PAIN LEVEL 6-10 Last Admin: 10/22/19 02:41 Dose: 50 mg Documented by: - Objective Vital Signs: Vital Signs Temperature 97.8 F 10/22/19 06:00 Pulse Rate 81 10/22/19 06:00 Respiratory Rate 20 10/22/19 06:00 Blood Pressure 136/84 10/22/19 06:00 O2 Sat by Pulse Oximetry (%) 99 10/22/19 02:00 Constitutional: Yes: No Distress, Calm Neck: Yes: Supple Cardiovascular: Yes: Regular Rate and Rhythm Respiratory: Yes: Regular, CTA Bilaterally Gastrointestinal: Yes: Normal Bowel Sounds, Soft Edema: No Labs: CBC, BMP 10/22/19 06:05 10/22/19 06:05 INR, PTT INR 1.46 (0.83-1.09) H 10/19/19 14:15 Problem List - Problems (1) Atrial fibrillation Code(s): I48.91 - UNSPECIFIED ATRIAL FIBRILLATION Qualifiers: Atrial fibrillation type: permanent Qualified Code(s): I48.21 - Permanent atrial fibrillation (2) Hypercholesterolemia Code(s): E78.0 - PURE HYPERCHOLESTEROLEMIA * DO NOT USE * (3) Hypertensive cardiovascular disease Code(s): I11.9 - HYPERTENSIVE HEART DISEASE WITHOUT HEART FAILURE Qualifiers: Heart failure presence: without heart failure Qualified Code(s): I11.9 - Hypertensive heart disease without heart failure (4) Hypothyroid Code(s): E03.9 - HYPOTHYROIDISM, UNSPECIFIED Qualifiers: Hypothyroidism type: unspecified Qualified Code(s): E03.9 - Hypothyroidism, unspecified (5) Pacemaker Code(s): Z95.0 - PRESENCE OF CARDIAC PACEMAKER Assessment/Plan 10/12/2019 Echo Conclusions: 1. LV size is normal. LV thickness is normal. Left ventricular systolic function is borderline normal. No segmental wall motion abnormalities present. 2. There is mild left atrial enlargement. There is mild right atrial enlargement. 3. Right ventricular size is normal. 4. The aortic valve is structurally normal. Mild to moderate aortic insufficiency is present. Aortic root dimension is normal. The ascending aorta is normal. 5. Mild thickening of the mitral valve leaflets. Mild to moderate mitral regurgitation is present. 6. The tricuspid valve is structurally normal. Mild tricuspid regurgitation is present. The structure of the pulmonic valve is normal. Mild pulmonary regurgitation is present. 7. No pericardial effusion. 8. The pulmonary artery systolic pressure is at least 29 mmHg based on an RA pressure of 3 mmHg. 9. Linear echodensity in right cardiac chamber c/w pacemaker lead. Clinical Correlation/Compared to previous: Compared to previous study on 06/12/18, there is no significant change. Echocardiography performed June 12, 2018 revealed normal left ventricular size with borderline left ventricular systolic function and estimated LVEF between 50-55%, moderate left atrial dilatation, moderate right atrial dilatation, mildly reduced right ventricular systolic function, aortic valve leaflet sclerosis without leaflet restriction and mild to moderate aortic valve regurgitation, moderate mitral valve regurgitation, moderate to severe tricuspid valve regurgitation with calculated RVSP of 42 mmHg, linear echodensity seen in the right cardiac chamber compatible with a pacemaker lead. Pharmacologic Dipyridamole myocardial perfusion imaging study performed May 14, 2016 revealed normal myocardial perfusion scan with normal left ventricular contraction pattern on LV gated analysis with calculated left ventricular ejection fraction of 59% Assessment: 1. Mechanical fall, T7 vertebral body fx, chronic T6 compression fx 2.Hypertensive cardiovascular disease 3. Coronary artery disease moderately obstructive coronary artery disease on coronary angiography/October 03, 2010 negative pharmacologic Dipyridamole myocardial perfusion imaging study for myocardial ischemia/May 14, 2016 angina pectoris, clinically stable. 4.Diastolic/systolic left ventricular dysfunction with chronic class I-II [place] Heart Association classification left ventricular failure, clinically compe nsated/euvolemic(history of acute exacerbation). 5. Persistent atrial fibrillation/atypical atrial flutter/atrial tachycardia on chronic anticoagulation therapy with DOACs/Eliquis (adequate dosage age greater than 80 and weight less than 60 kg) [id number] score of 6, rate controlled. 6. Sinus node dysfunction/sick sinus syndrome, symptomatic post permanent pacemaker implantation [employer]'s MRI conditional device([employer]'s Chhaya XT DR MRI conditional device- [id number]). 7. Mitral valve regurgitation moderate in severity. 8. Aortic valve regurgitation mild to moderate in severity. 9. Tricuspid valve regurgitation moderate in severity with RVSP between 40-50 mmHg on echocardiography performed May 14, 2016/moderate to severe in severity with RVSP of 42 mmHg on echocardiography performed June 12, 2018. 10. Small pericardial effusion on echocardiography performed May 14, 2016- not evident on echocardiography performed June 12, 2018. 11. Awj-rodhlsg-ewbxqatud diabetes mellitus. 12. Hypercholesterolemia. 13. History of organic brain syndrome/dementia. 14. History of trigeminal neuralgia. 15. History of hypothyroidism, currently off of Synthroid therapy(history ofmultinodular goiter). 16. History of degenerative lumbosacral disc disease with chronic low back pain syndrome. 17. History of degenerative joint disease status post total right hip re placement surgery. 18. History of traumatic right femur fracture post open reduction and internal fixation (November 14, 2015). 19. History of chronic anemia. Plan: 1. PT for gait training, analgesia as needed, TLSO brace as tolerated 2. Continue Atenolol 25 bid, Lipitor 40 qd, Aldactone 25 qd 3. Patient was advised to continue above medical therapy including continuation of anticoagulation ELiquis 2.5 bid indefinitely unless it is absolutely contraindicated considering the above-noted [id number] score of 6 4. Pacemaker interrogationnoted and continuationof remote pacemaker monitoring via [employer] service. 5. Empiric abx course per C&S
--- NOTE | 2019-10-22 10:10 | PN ---
Progress Note (short form) - Note Progress Note: ID CONSULT DICTATED R/O COMMUNITY ACQUIRED VS. ATYPICAL PNEUMONIA R/O SEPSIS SECONDARY TO LUNG SOURCE ?UTI LEUKOCYTOSIS S/P NEAR SYNCOPE AWAIT C/S EMPIRIC CEFTRIAXONE
--- NOTE | 2019-10-22 10:44 | CONS ---
DATE OF CONSULTATION: DATE OF DICTATION: 10/22/2019 INFECTIOUS DISEASE CONSULTATION Patient is an 84-year-old female evaluated for possible pneumonia. History was obtained from the chart as she cannot give a history secondary to dementia. She was admitted to the hospital on October 22, 2019, after a near syncopal episode. She had had falls at home with head trauma. No reports of loss of consciousness. She was evaluated in the emergency room, where a CAT scan of the head was negative for acute infarct or bleed. CAT scan of the spine showed DJD as well as fractures of C6-C7. She was admitted to telemetry. Her course was complicated by elevated white blood cell count. CAT scan of the chest shows atelectasis, left upper lobe. Chest x-ray now shows questionable upper lobe infiltrate. Urine culture is growing a lactose bellman. She is unable to offer any additional details. She offers no complaints. No reports of high-grade fever, shaking chills, labored breathing, cough, sputum production, vomiting, diarrhea, or grossly purulent urine. PAST MEDICAL HISTORY: Positive for atrial fibrillation, hypertension, hyperlipidemia, COPD, gastroesophageal reflux disease, osteoarthritis, osteoporosis, chronic low back pain, diverticulosis, dementia. PAST SURGICAL HISTORY: Status post total hip replacement, appendectomy. ALLERGIES: To ATROPINE. MEDICATIONS: Include Aricept, Eliquis, Lipitor, Tylenol, oxycodone. SOCIAL HISTORY: She resides in the community with family members. Former smoker. Daily EtOH. SYSTEM REVIEW: Neurologic: As per HPI. Cardiac: Negative chest pain or palpitations. Positive permanent pacemaker. Respiratory: As per HPI. Gastrointestinal: Negative vomiting or diarrhea. Genitourinary: Positive for urinary tract infection. LABORATORY DATA: White count on admission 11.6, and 84% neutrophils, 8 lymphocytes, 7 monocytes, hematocrit 39.9, platelets 320. Creatinine 0.4. Liver enzymes normal. Urine: Leukocyte esterase negative. Urine culture growing a lactose bellman. COVID-19 PCR negative. PHYSICAL EXAMINATION: General: She is awake. She is confused, cachectic, chronically ill appearing. Vital Signs: Temperature 98, blood pressure 130/78, pulse 68 regular, respirations 22 per minute. Eyes: Sclerae anicteric. Heart: Sounds irregular S1, S2. Lungs: Decreased breath sounds bilaterally. Poor inspiratory effort. Abdomen: Slightly distended. Nontender. Extremities: Negative for edema. IMPRESSION: 1. Rule out community-acquired versus atypical pneumonia. 2. Rule out sepsis secondary to lung source. 3. Possible urinary tract infection. 4. Leukocytosis. 5. Status post near syncope. PLAN: Await sepsis workup. Empiric antibiotic coverage with ceftriaxone. Aspiration precautions. Will follow. Thank you for the kind referral. CALEB WALLIS M.D. [id number]
[2019-10-22] MEDS ORDERED: cefTRIAXone SODIUM 1 GM VIAL ONE (11:06)
[2019-10-22] MEDS ORDERED: DEXTROSE 5%-WATER - 50 ML IVPB ONE (11:06)
[2019-10-22] MEDS: CEFTRIAXONE 1 GM in DEXTROSE 5%-WATER - 50 ML IVPB SCH (11:11)
[2019-10-22] MEDS: oxyCODONE HCL 5 MG TABLET PO PRN ×2 (12:46→22:18)
--- NOTE | 2019-10-22 14:51 | EKG ---
Test Reason : Blood Pressure : / mmHG Vent. Rate : 088 BPM Atrial Rate : 091 BPM P-R Int : 000 ms QRS Dur : 106 ms QT Int : 382 ms P-R-T Axes : 000 -68 -54 degrees QTc Int : 462 ms SINUS RHYTHM LEFT ANTERIOR FASCICULAR BLOCK NONSPECIFIC ST AND T WAVE ABNORMALITY ABNORMAL ECG Confirmed by SYLVIA ARREDONDO MD ([id number]) on 10/22/2019 2:51:29 PM Referred By: Sawyer HARRINGTON Confirmed By:SYLVIA ARREDONDO MD
[2019-10-22] MEDS: ATORVASTATIN CA 40 MG TABLET (FP) PO SCH (22:19)
--- NOTE | 2019-10-23 01:25 | CON.NEURO ---
Consult Consult Specialty:: [facility] Referred by:: PCP Reason for Consultation:: FREQENYT FALLS - History of Present Illness History of Present Illness: 84-year-old right-handed With multiple medical problems including trigeminal neuralgia cardiac arrhythmia hypertension pacemaker gastritis mild dementia given to the hospital with frequent full period according to the patient she fell twice I spoke to the emergency room when she came in because the daughter described? Official droopiness according to the emergency room the patient with no nor a deficit According to the patient she slipped and fell no reports of any seizure like activity cat scan of the cervical spine and head and the ls spine was noted - History Source History Provided By: Medical Record Limitations to Obtaining History: Clinical Condition - Past Medical History Cardio/Vascular: Yes: AFIB, CAD, HTN, Hyperlipdemia Pulmonary: Yes: COPD Gastrointestinal: Yes: Gastritis, GERD Musculoskeletal: Yes: Chronic low back pain, Osteoarthritis Endocrine: Yes: Osteopenia - Past Surgical History Past Surgical History: Yes: Appendectomy, Colonoscopy, Joint Replacement - Alcohol/Substance Use Hx Alcohol Use: Yes (DAILY WINE) History of Substance Use: reports: None - Smoking History Smoking history: Former smoker Have you smoked in the past 12 months: No If you are a former smoker, when did you quit?: 40 YRS AGO - Social History Usual Living Arrangement: With Spouse (in elevator apartment, ambulated with [place] but has RW as well) ADL: Family Assistance History of Recent Travel: No Home Medications - Allergies Allergies/Adverse Reactions: Allergies Allergy/AdvReac Type Severity Reaction Status Date / Time atropine AdvReac Severe Verified 10/19/19 13:50 tape Allergy Intermediate Rash Uncoded 10/19/19 13:50 - Home Medications Home Medications: Ambulatory Orders Atenolol [Tenormin -] 72 mg PO BID 05/10/16 Atorvastatin Ca [Lipitor] 40 mg PO HS #30 tablet 05/14/16 Apixaban [Eliquis] 2.5 mg PO BID 10/18/19 Biotin 1,000 mcg PO DAILY 10/18/19 Carbamazepine 400 mg PO BID 10/18/19 Cranberry Fruit Extract [Cranberry] 750 mg PO DAILY 10/18/19 Donepezil HCl [Aricept] 10 mg PO DAILY 10/18/19 Ferrous Sulfate 325 mg PO DAILY 10/18/19 Furosemide [Lasix] 40 mg PO DAILY 10/18/19 [place]-3 Fatty Acids/Fish Oil [Fish Oil 1,000 mg Capsule] 1 each PO DAILY 10/18/19 Potassium Gluconate [Potassium] 99 mg PO DAILY 10/18/19 Spironolactone 25 mg PO QID 10/18/19 Eszopiclone [Lunesta] 20 mg PO HS 10/20/19 Family Medical History Family History: Unable to Obtain Review of Systems - Review of Systems Constitutional: reports: No Symptoms Eyes: reports: No Symptoms Neurological: reports: Incoordination, Numbness, Unsteady Gait Endocrine: reports: [place] Physical Exam-Neuro Vital Signs: Vital Signs Temperature 98.1 F 10/22/19 14:00 Pulse Rate 81 10/22/19 18:00 Respiratory Rate 20 10/22/19 18:00 Blood Pressure 144/82 10/22/19 18:00 O2 Sat by Pulse Oximetry (%) 98 10/22/19 18:00 Constitutional: Yes: Well Nourished Neck: Yes: WNL Labs: CBC, BMP 10/22/19 06:05 10/22/19 06:05 INR, PTT INR 1.46 (0.83-1.09) H 10/19/19 14:15 - Neuro Exam Level Of Consciousness: Yes: Oriented to Person, Oriented to Place, Oriented to Time Eyes: Yes: PERRLA Speech: Garbled Dominant Hand: Right Cranial Nerves II-XII Intact: Yes Gag: Present DTR's: 0 Left Brachioradialis, 0 Right Brachioradialis, 1+ Left Bicep, 1+ Right Bicep, 1+ Left Achilles, 1+ Right Achilles Response to light touch: Abnormal Response to pain prick: Abnormal Response to temperature: Abnormal Motor Strength: 3/5: Left Arm, Right Arm, Left Leg, Right Leg Imaging - Results Cat Scan: Report Reviewed, Image Reviewed Problem List - Problems (1) Fall Code(s): W19.XXXA - UNSPECIFIED FALL, INITIAL ENCOUNTER Qualifiers: Encounter type: initial encounter Qualified Code(s): W19.XXXA - Unspecified fall, initial encounter (2) Near syncope Code(s): R55 - SYNCOPE AND COLLAPSE (3) Pacemaker Code(s): Z95.0 - PRESENCE OF CARDIAC PACEMAKER Assessment/Plan gait dysfunction multifactorial questionable neuropathy associated with the usage of Tegretol/spinal stenosis Fall precautions continue anticoagulation the benefit outweigh the risk taper tegretol to 200 bid pT lidoderm patches B12 Level dont add aspirin Eda Hoskins MD
[2019-10-23] MEDS: oxyCODONE HCL 5 MG TABLET PO PRN ×2 (08:51→17:46)
[2019-10-23] MEDS ORDERED: PT OWN MED DRAWER 7, Y5N ONE ×3 (09:04→21:32)
[2019-10-23] MEDS ORDERED: cefTRIAXone SODIUM 1 GM VIAL ONE (09:04)
[2019-10-23] MEDS ORDERED: DEXTROSE 5%-WATER - 50 ML IVPB ONE (09:05)
[2019-10-23] MEDS: APIXABAN 2.5 MG TABLET PO SCH ×2 (09:09→22:28)
[2019-10-23] MEDS: DONEPEZIL HCL 10 MG TABLET (FP) PO SCH (09:09)
[2019-10-23] MEDS: carBAMazepine 200 MG TABLET PO SCH ×2 (09:09→22:28)
[2019-10-23] MEDS: ATENOLOL 25 MG TABLET (FP) PO SCH ×2 (09:09→22:28)
[2019-10-23] MEDS: CEFTRIAXONE 1 GM in DEXTROSE 5%-WATER - 50 ML IVPB SCH (09:10)
--- NOTE | 2019-10-23 09:35 | PN ---
Progress Note, Physician - Current Medication List Current Medications: Active Medications Acetaminophen (Tylenol -) 650 mg PO Q6H PRN PRN Reason: PAIN LEVEL 4 - 6 Last Admin: 10/22/19 17:56 Dose: 650 mg Documented by: Apixaban (Eliquis -) 2.5 mg PO BID [facility] Last Admin: 10/23/19 09:09 Dose: 2.5 mg Documented by: Atenolol (Tenormin -) 25 mg PO BID [facility] Last Admin: 10/23/19 09:09 Dose: 25 mg Documented by: Atorvastatin Calcium (Lipitor -) 40 mg PO HS [facility] Last Admin: 10/22/19 22:19 Dose: 40 mg Documented by: Carbamazepine (Tegretol -) 400 mg PO BID [facility] Last Admin: 10/23/19 09:09 Dose: 400 mg Documented by: Donepezil HCl (Aricept -) 10 mg PO DAILY [facility] Last Admin: 10/23/19 09:09 Dose: 10 mg Documented by: Ceftriaxone Sodium 1 gm/ (Dextrose) 50 mls @ 200 mls/hr IVPB DAILY [facility]; Protoco l Last Admin: 10/23/19 09:10 Dose: 200 mls/hr Documented by: Oxycodone HCl (Roxicodone -) 5 mg PO Q6H PRN PRN Reason: PAIN LEVEL 7-10 Last Admin: 10/23/19 08:51 Dose: 5 mg Documented by: - Objective Vital Signs: Vital Signs Temperature 98.0 F 10/23/19 06:00 Pulse Rate 74 10/23/19 09:28 Respiratory Rate 18 10/23/19 09:28 Blood Pressure 130/76 10/23/19 09:28 O2 Sat by Pulse Oximetry (%) 98 10/22/19 21:00 Cardiovascular: Yes: Regular Rate and Rhythm Respiratory: Yes: Regular, CTA Bilaterally Gastrointestinal: Yes: Normal Bowel Sounds, Soft Labs: CBC, BMP 10/22/19 06:05 10/22/19 06:05 INR, PTT INR 1.46 (0.83-1.09) H 10/19/19 14:15 Problem List - Problems (1) Fall Assessment/Plan: PT eval monitor on tele to r/o arrythmia Code(s): W19.XXXA - UNSPECIFIED FALL, INITIAL ENCOUNTER Qualifiers: Encounter type: initial encounter Qualified Code(s): W19.XXXA - Unspecified fall, initial encounter (2) Atrial fibrillation Assessment/Plan: continue with eliquis rate 50--pacemaker interrogation Code(s): I48.91 - UNSPECIFIED ATRIAL FIBRILLATION Qualifiers: Atrial fibrillation type: permanent Qualified Code(s): I48.21 - Permanent atrial fibrillation (3) Hypothyroid Code(s): E03.9 - HYPOTHYROIDISM, UNSPECIFIED Qualifiers: Hypothyroidism type: unspecified Qualified Code(s): E03.9 - Hypothyroidism, unspecified (4) Pacemaker Assessment/Plan: cardio Code(s): Z95.0 - PRESENCE OF CARDIAC PACEMAKER (5) Hypokalemia Assessment/Plan: replace Code(s): E87.6 - HYPOKALEMIA (6) Back pain Assessment/Plan: Compression fx--old pain control pt Code(s): M54.9 - DORSALGIA, UNSPECIFIED (7) UTI (urinary tract infection) Assessment/Plan: on rocephin to ceftin on dc Code(s): N39.0 - URINARY TRACT INFECTION, SITE NOT SPECIFIED
--- NOTE | 2019-10-23 10:05 | PN ---
Progress Note (short form) - Note Progress Note: =84-year-old female with known history of coronary artery disease moderately obstructive coronary artery disease on coronary angiography/October 03, 2010 negative pharmacologic Dipyridamole myocardial perfusion imaging study for myocardial ischemia/June 16, 2013 status post non-ST segment elevation myocardial infarction/demand ischemic injury/May 10, 2016 negative pharmacologic Dipyridamole myocardial perfusion imaging study for myocardial isc hemia/May 14, 2016 angina pectoris, diastolic/systolic left ventricular dysfunction with chronic class I-II [place] Heart Association classification left ventricular failure (LVEF between 50-55% on echocardiography performed June 12, 2018), persistent atrial fibrillation/atypical atrial flutter/atrial tachycardia on chronic anticoagulation therapy with DOACs/Eliquis [id number] score of 6, sick sinus syndrome post permanent pacemaker implantation ([employer]'s Chhaya XT DR MRI conditional device- [id number]), mitral valve regurgitation moderate in severity on echocar diography performed May 14, 2016/June 12, 2018, aortic valve regurgitation mild to moderate in severity, tricuspid valve regurgitation moderate in severity with RVSP of 39 mmHg on echocardiography performed November 08, 2014/RVSP between 40-50 mmHg on echocardiography performed May 14, 2016/moderate to severe in severity with RVSP of 42 mmHg on echocardiography performed June 12, 2018, s mall pericardial effusion on echocardiography performed May 14, 2016- not evident on echocardiography performed June 12, 2018, hypertensive cardiovascular disease, rhs-jmyoahf-[id number] diabetes mellitus, hypercholesterolemia, organic brain syndrome/dementia, trigeminal neuralgia- persistent symptomatology,hypothyroidism, currently off of Synthroid therapy(history ofmultinodular goiter), degenerative lumbosacral disc disease with chronic low back pain syndrome, degenerative joint disease status post total right hip replacement surgery, post traumatic right femur fracture post open reduction and internal fixation (November 14, 2015) and chronic anemia who was last evaluated in the officeJun2019. Since the above evaluation, patient presented to the ED due to 2x falls . The first time she rolled out of bed, and the second time she slid out of her chair. She is unable to explain how she fell. She reports that she hit her head both times, but is unsure about LOC. Denies any preceding lightheadedness, chest pain, SOB, or LOC. She is currently reporting improving lower back pain, which is chronic but worse now referable to acute T7 vertebral body fracture. Pacem larry interrogated normal fxn, 12.6 years left. 10/22; Seen by neuro; Ok to con AC; no acute cardiac events Vital Signs Temperature 98.0 F 10/23/19 06:00 Pulse Rate 74 10/23/19 09:28 Respiratory Rate 18 10/23/19 09:28 Blood Pressure 130/76 10/23/19 09:28 O2 Sat by Pulse Oximetry (%) 98 10/22/19 21:00 Neck: Yes: Supple Cardiovascular: Yes: IRRegular Rate and Rhythm Respiratory: Yes: CTA Bilaterally Gastrointestinal: Yes: Normal Bowel Sounds, Soft Edema: No Labs: CBC, BMP 10/22/19 06:05 10/22/19 06:05 Active Medications Acetaminophen (Tylenol -) 650 mg PO Q6H PRN PRN Reason: PAIN LEVEL 4 - 6 Last Admin: 10/22/19 17:56 Dose: 650 mg Documented by: Apixaban (Eliquis -) 2.5 mg PO BID [facility] Last Admin: 10/23/19 09:09 Dose: 2.5 mg Documented by: Atenolol (Tenormin -) 25 mg PO BID [facility] Last Admin: 10/23/19 09:09 Dose: 25 mg Documented by: Atorvastatin Calcium (Lipitor -) 40 mg PO HS [facility] Last Admin: 10/22/19 22:19 Dose: 40 mg Documented by: Carbamazepine (Tegretol -) 400 mg PO BID [facility] Last Admin: 10/23/19 09:09 Dose: 400 mg Documented by: Donepezil HCl (Aricept -) 10 mg PO DAILY [facility] Last Admin: 10/23/19 09:09 Dose: 10 mg Documented by: Ceftriaxone Sodium 1 gm/ (Dextrose) 50 mls @ 200 mls/hr IVPB DAILY [facility]; Protocol Last Admin: 10/23/19 09:10 Dose: 200 mls/hr Documented by: Oxycodone HCl (Roxicodone -) 5 mg PO Q6H PRN PRN Reason: PAIN LEVEL 7-10 Last Admin: 10/23/19 08:51 Dose: 5 mg Documented by: Problem List - Problems (1) Atrial fibrillation Code(s): I48.91 - UNSPECIFIED ATRIAL FIBRILLATION Qualifiers: Atrial fibrillation type: permanent Qualified Code(s): I48.21 - Permanent atrial fibrillation (2) Hypercholesterolemia Code(s): E78.0 - PURE HYPERCHOLESTEROLEMIA * DO NOT USE * (3) Hypertensive cardiovascular disease Code(s): I11.9 - HYPERTENSIVE HEART DISEASE WITHOUT HEART FAILURE Qualifiers: Heart failure presence: without heart failure Qualified Code(s): I11.9 - Hypertensive heart disease without heart failure (4) Hypothyroid Code(s): E03.9 - HYPOTHYROIDISM, UNSPECIFIED Qualifiers: Hypothyroidism type: unspecified Qualified Code(s): E03.9 - Hypothyroidism, unspecified (5) Pacemaker Code(s): Z95.0 - PRESENCE OF CARDIAC PACEMAKER Assessment/Plan 10/12/2019 Echo Conclusions: 1. LV size is normal. LV thickness is normal. Left ventricular systolic function is borderline normal. No segmental wall motion abnormalities present. 2. There is mild left atrial enlargement. There is mild right atrial enlargement. 3. Right ventricular size is normal. 4. The aortic valve is structurally normal. Mild to moderate aortic insufficiency is present. Aortic root dimension is normal. The ascending aorta is normal. 5. Mild thickening of the mitral valve leaflets. Mild to moderate mitral reg urgitation is present. 6. The tricuspid valve is structurally normal. Mild tricuspid regurgitation is present. The structure of the pulmonic valve is normal. Mild pulmonary regurgitation is present. 7. No pericardial effusion. 8. The pulmonary artery systolic pressure is at least 29 mmHg based on an RA pressure of 3 mmHg. 9. Linear echodensity in right cardiac chamber c/w pacemaker lead. Clinical Correlation/Compared to previous: Compared to previous study on 06/12/18, there is no significant change. Echocardiography performed June 12, 2018 revealed normal left ventricular size with borderline left ventricular systolic function and estimated LVEF between 50-55%, moderate left atrial dilatation, moderate right atrial dilatation, mildly reduced right ventricular systolic function, aortic valve leaflet sclerosis without leaflet restriction and mild to moderate aortic valve regurg itation, moderate mitral valve regurgitation, moderate to severe tricuspid valve regurgitation with calculated RVSP of 42 mmHg, linear echodensity seen in the right cardiac chamber compatible with a pacemaker lead. Pharmacologic Dipyridamole myocardial perfusion imaging study performed May 14, 2016 revealed normal myocardial perfusion scan with normal left ventricular contraction pattern on LV gated analysis with calculated left ventricular ejection fraction of 59% Assessment: 1. Mechanical fall, T7 vertebral body fx, chronic T6 compression fx 2.Hypertensive cardiovascular disease 3. Coronary artery disease moderately obstructive coronary artery disease on coronary angiography/October 03, 2010 negative pharmacologic Dipyridamole myocardial perfusion imaging study for myocardial ischemia/May 14, 2016 angina pectoris, clinically stable. 4.Diastolic/systolic left ventricular dysfunction with chronic class I-II [place] Heart Association classification left ventricular failure, clinically compensated/euvolemic(history of acute exacerbation). 5. Persistent atrial fibrillation/atypical atrial flutter/atrial tachycardia on chronic anticoagulation therapy with DOACs/Eliquis (adequate dosage age greater than 80 and weight less than 60 kg) [id number] score of 6, rate controlled. 6. Sinus node dysfunction/sick sinus syndrome, symptomatic post permanent pacemaker implantation [employer]'s MRI conditional device([employer]'s Chhaya XT DR MRI conditional device- [id number]). 7. Mitral valve regurgitation moderate in severity. 8. Aortic valve regurgitation mild to moderate in severity. 9. Tricuspid valve regurgitation moderate in severity with RVSP between 40-50 mmHg on echocardiography performed May 14, 2016/moderate to severe in severity with RVSP of 42 mmHg on echocardiography performed June 12, 2018. 10. Small pericardial effusion on echocardiography performed May 14, 2016- not evident on echocardiography performed June 12, 2018. 11. Qbg-xkfnxsy-cduqkpllc diabetes mellitus. 12. Hypercholesterolemia. 13. History of organic brain syndrome/dementia. 14. History of trigeminal neuralgia. 15. History of hypothyroidism, currently off of Synthroid therapy(history ofmultinodular goiter). 16. History of degenerative lumbosacral disc disease with chronic low back pain syndrome. 17. History of degenerative joint disease status post total right hip replacement surgery. 18. History of traumatic right femur fracture post open reduction and internal fixation (November 14, 2015). 19. History of chronic anemia. Plan: 1. PT for gait training, 2. Continue Atenolol 25 bid, Lipitor 40 qd, 3. Patient was advised to continue above medical therapy including continuation of anticoagulation ELiquis 2.5 bid indefinitely unless it is absolutely contrain dicated considering the above-noted [id number] score of 6 4. Pacemaker interrogationnoted and continuationof remote pacemaker monitoring via [employer] service. 5. Empiric abx course per C&S
--- NOTE | 2019-10-23 12:08 | PN ---
Progress Note, Physician History of Present Illness: AWAKE, RESPONSIVE IN BED ABLE TO ANSWER SIMPLE QUESTIONS DENIES PAIN EXTREMELY WEAK APPEARING BREATHING NON-LABORED ON NC AFEBRILE WBC IMPROVED WNL BC (-) URINE C/S E COLI - Current Medication List Current Medications: Active Medications Acetaminophen (Tylenol -) 650 mg PO Q6H PRN PRN Reason: PAIN LEVEL 4 - 6 Last Admin: 10/22/19 17:56 Dose: 650 mg Documented by: Apixaban (Eliquis -) 2.5 mg PO BID [facility] Last Admin: 10/23/19 09:09 Dose: 2.5 mg Documented by: Atenolol (Tenormin -) 25 mg PO BID [facility] Last Admin: 10/23/19 09:09 Dose: 25 mg Documented by: Atorvastatin Calcium (Lipitor -) 40 mg PO HS [facility] Last Admin: 10/22/19 22:19 Dose: 40 mg Documented by: Carbamazepine (Tegretol -) 400 mg PO BID [facility] Last Admin: 10/23/19 09:09 Dose: 400 mg Documented by: Donepezil HCl (Aricept -) 10 mg PO DAILY [facility] Last Admin: 10/23/19 09:09 Dose: 10 mg Documented by: Ceftriaxone Sodium 1 gm/ (Dextrose) 50 mls @ 200 mls/hr IVPB DAILY [facility]; Protocol Last Admin: 10/23/19 09:10 Dose: 200 mls/hr Documented by: Oxycodone HCl (Roxicodone -) 5 mg PO Q6H PRN PRN Reason: PAIN LEVEL 7-10 Last Admin: 10/23/19 08:51 Dose: 5 mg Documented by: - Objective Vital Signs: Vital Signs Temperature 98.1 F 10/23/19 10:00 Pulse Rate 74 10/23/19 10:00 Respiratory Rate 18 10/23/19 10:00 Blood Pressure 130/76 10/23/19 10:00 O2 Sat by Pulse Oximetry (%) 98 10/22/19 21:00 Constitutional: Yes: Cachectic Cardiovascular: Yes: Regular Rate and Rhythm, S1, S2 Respiratory: Yes: Diminished Gastrointestinal: Yes: Normal Bowel Sounds, Soft. No: Tenderness Edema: No Labs: CBC, BMP 10/22/19 06:05 10/22/19 06:05 INR, PTT INR 1.46 (0.83-1.09) H 10/19/19 14:15 Assessment/Plan R/O COMMUNITY ACQUIRED V. ATYPICAL PNEUMONIA ? SEPSIS SECONDARY TO LUNG SOURCE UTI LEUKOCYTOSIS IMPROVED S/P NEAR SYNCOPE AWAIT SEPSIS W/U CONTINUE CEFTRIAXONE CRITICAL CARE TIME 35MIN
[2019-10-23] MEDS: ACETAMINOPHEN 325 MG TABLET (FP) PO PRN (20:18)
[2019-10-23] MEDS: ATORVASTATIN CA 40 MG TABLET (FP) PO SCH (22:28)
[2019-10-24] MEDS: oxyCODONE HCL 5 MG TABLET PO PRN ×3 (01:50→22:03)
[2019-10-24] MEDS: ACETAMINOPHEN 325 MG TABLET (FP) PO PRN ×2 (05:30→11:31)
[2019-10-24] MEDS ORDERED: cefTRIAXone SODIUM 1 GM VIAL ONE ×2 (08:38→08:48)
[2019-10-24] MEDS ORDERED: DEXTROSE 5%-WATER - 50 ML IVPB ONE ×2 (08:39→08:48)
[2019-10-24] MEDS: DONEPEZIL HCL 10 MG TABLET (FP) PO SCH (09:14)
[2019-10-24] MEDS: ATENOLOL 25 MG TABLET (FP) PO SCH ×2 (09:14→22:04)
[2019-10-24] MEDS: CEFTRIAXONE 1 GM in DEXTROSE 5%-WATER - 50 ML IVPB SCH (09:15)
[2019-10-24] MEDS: APIXABAN 2.5 MG TABLET PO SCH ×2 (09:15→22:03)
[2019-10-24] MEDS: carBAMazepine 200 MG TABLET PO SCH ×2 (09:28→22:50)
--- NOTE | 2019-10-24 10:04 | DS ---
Physical Examination Vital Signs: Vital Signs Temperature 97.9 F 10/23/19 19:35 Pulse Rate 76 10/24/19 08:00 Respiratory Rate 16 10/24/19 08:00 Blood Pressure 136/77 10/24/19 08:00 O2 Sat by Pulse Oximetry (%) 99 10/24/19 08:00 Cardiovascular: Yes: Regular Rate and Rhythm Respiratory: Yes: Regular, CTA Bilaterally Gastrointestinal: Yes: Normal Bowel Sounds, Soft. No: Tenderness Labs: CBC, BMP 10/22/19 06:05 10/22/19 06:05 Discharge Summary Problems reviewed: Yes Reason For Visit: FALL Current Active Problems Fall (Acute) Near syncope (Acute) Pacemaker (Acute) UTI (urinary tract infection) (Acute) Hospital Course: - Problems (1) Fall Assessment/Plan: PT eval monitor on tele to r/o arrythmia Code(s): W19.XXXA - UNSPECIFIED FALL, INITIAL ENCOUNTER Qualifiers: Encounter type: initial encounter Qualified Code(s): W19.XXXA - Unspecified fall, initial encounter (2) Atrial fibrillation Assessment/Plan: continue with eliquis rate 50--pacemaker interrogation Code(s): I48.91 - UNSPECIFIED ATRIAL FIBRILLATION Qualifiers: Atrial fibrillation type: permanent Qualified Code(s): I48.21 - Permanent atrial fibrillation (3) Hypothyroid Code(s): E03.9 - HYPOTHYROIDISM, UNSPECIFIED Qualifiers: Hypothyroidism type: unspecified Qualified Code(s): E03.9 - Hypothyroidism, unspecified (4) Pacemaker Assessment/Plan: cardio Code(s): Z95.0 - PRESENCE OF CARDIAC PACEMAKER (5) Hypokalemia Assessment/Plan: replace Code(s): E87.6 - HYPOKALEMIA (6) Back pain Assessment/Plan: Compression fx--old pain control pt Code(s): M54.9 - DORSALGIA, UNSPECIFIED (7) UTI (urinary tract infection) Assessment/Plan: on rocephin to ceftin on dc Code(s): N39.0 - URINARY TRACT INFECTION, SITE NOT SPECIFIED Condition: Stable - Instructions Referrals: Venkat Peraza MD [Primary Care Provider] - - Home Medications Comprehensive Discharge Medication List: Ambulatory Orders Atenolol [Tenormin -] 72 mg PO BID 05/10/16 Atorvastatin Ca [Lipitor] 40 mg PO HS #30 tablet 05/14/16 Apixaban [Eliquis] 2.5 mg PO BID 10/18/19 Biotin 1,000 mcg PO DAILY 10/18/19 Carbamazepine 400 mg PO BID 10/18/19 Cranberry Fruit Extract [Cranberry] 750 mg PO DAILY 10/18/19 Donepezil HCl [Aricept] 10 mg PO DAILY 10/18/19 [place]-3 Fatty Acids/Fish Oil [Fish Oil 1,000 mg Capsule] 1 each PO DAILY 10/18/19 Acetaminophen [Tylenol .Regular Strength -] 650 mg PO Q6H PRN tablet 10/23/19 Cefuroxime Axetil [Ceftin -] 250 mg PO BID #14 tablet 10/23/19 oxyCODONE HCL [Roxicodone -] 5 mg PO Q6H PRN tablet 10/23/19
[2019-10-24] MEDS ORDERED: PT OWN MED DRAWER 7, Y5N ONE (22:01)
[2019-10-24] MEDS: ATORVASTATIN CA 40 MG TABLET (FP) PO SCH (22:03)
[2019-10-25] MEDS: oxyCODONE HCL 5 MG TABLET PO PRN (08:35)
[2019-10-25] MEDS ORDERED: PT OWN MED DRAWER 7, Y5N ONE (08:59)
[2019-10-25] MEDS ORDERED: cefTRIAXone SODIUM 1 GM VIAL ONE (08:59)
[2019-10-25] MEDS ORDERED: DEXTROSE 5%-WATER - 50 ML IVPB ONE (09:00)
[2019-10-25] MEDS: APIXABAN 2.5 MG TABLET PO SCH ×2 (09:04→21:44)
[2019-10-25] MEDS: DONEPEZIL HCL 10 MG TABLET (FP) PO SCH (09:04)
[2019-10-25] MEDS: CEFTRIAXONE 1 GM in DEXTROSE 5%-WATER - 50 ML IVPB SCH (09:05)
[2019-10-25] MEDS: ATENOLOL 25 MG TABLET (FP) PO SCH ×2 (09:06→21:44)
[2019-10-25] MEDS: carBAMazepine 200 MG TABLET PO SCH ×2 (09:06→21:44)
--- NOTE | 2019-10-25 09:54 | PN ---
Progress Note, Physician Chief Complaint: Pt A&Ox3; moaning, with eyes closed, but smiles when verbally queried, and says the pain is bearable. She would like to get out of bed and have physical therapy. History of Present Illness: Ms. Espitia is an 84 year old white female with a significant past medical history of Afib (on eliquis), s/p PPM, HTN, HLD, low-normal LVEF, with moderate TR, MR, AR, mild pulmonary HTN on 2017 ECHO (small pericardial effusion noted on 2017 not evident on 2019 ECHO), COPD, gastritis, GERD, lower back pain, OA, osteopenia, recurrent falls who presented to the ED s/p two falls. As per enriqueta faith, her first fall happened when she got out of bed that morning, and she slid out of her chair the second time. Patient endorses she hit her head both times, and currently notes exacerbation of her chronic lower back pain. Denies lightheadedness, chest pain, shortness of breath, or loss of cons ciousness. Allergies: Atropine, tape PCP: Dr. Peraza - Current Medication List Current Medications: Active Medications Acetaminophen (Tylenol -) 650 mg PO Q6H PRN PRN Reason: PAIN LEVEL 4 - 6 Last Admin: 10/24/19 11:31 Dose: 650 mg Documented by: Apixaban (Eliquis -) 2.5 mg PO BID [facility] Last Admin: 10/25/19 09:04 Dose: 2.5 mg Documented by: Atenolol (Tenormin -) 25 mg PO BID [facility] Last Admin: 10/25/19 09:06 Dose: 25 mg Documented by: Atorvastatin Calcium (Lipitor -) 40 mg PO HS [facility] Last Admin: 10/24/19 22:03 Dose: 40 mg Documented by: Carbamazepine (Tegretol -) 400 mg PO BID [facility] Last Admin: 10/25/19 09:06 Dose: 400 mg Documented by: Donepezil HCl (Aricept -) 10 mg PO DAILY [facility] Last Admin: 10/25/19 09:04 Dose: 10 mg Documented by: Ceftriaxone Sodium 1 gm/ (Dextrose) 50 mls @ 200 mls/hr IVPB DAILY [facility]; Protocol Last Admin: 10/25/19 09:05 Dose: 200 mls/hr Documented by: - Objective Vital Signs: Vital Signs Temperature 97.6 F 10/25/19 08:00 Pulse Rate 79 10/25/19 08:00 Respiratory Rate 25 H 10/25/19 08:00 Blood Pressure 162/74 10/25/19 08:00 O2 Sat by Pulse Oximetry (%) 93 L 10/25/19 08:00 Constitutional: Yes: No Distress Eyes: Yes: WNL HENT: Yes: WNL Neck: Yes: WNL Cardiovascular: Yes: Regular Rate and Rhythm Respiratory: Yes: Diminished Gastrointestinal: Yes: Soft ...Rectal Exam: Yes: Deferred Genitourinary: No: Anuria Breast(s): Yes: WNL Musculoskeletal: Yes: Muscle Weakness Edema: No Peripheral Pulses WNL: Yes Integumentary: Yes: Other Labs: CBC, BMP 10/22/19 06:05 10/22/19 06:05 INR, PTT INR 1.46 (0.83-1.09) H 10/19/19 14:15 Assessment/Plan 1. Mechanical fall, T7 vertebral body fx, chronic T6 compression fx 2.Hypertensive cardiovascular disease 3. Coronary artery disease moderately obstructive coronary artery disease on coronary angiography/October 03, 2010 negative pharmacologic Dipyridamole joann cardial perfusion imaging study for myocardial ischemia/May 14, 2016 angina pectoris, clinically stable. 4.Diastolic/systolic left ventricular dysfunction with chronic class I-II [place] [employer] classification left ventricular failure, clinically compensated/euvolemic(history of acute exacerbation). 5. Persistent atrial fibrillation/atypical atrial flutter/atrial tachycardia on chronic anticoagulation therapy with DOACs/Eliquis (adequate dosage age greater than 80 and weight less than 60 kg) [id number] score of 6, rate controlled. 6. Sinus node dysfunction/sick sinus syndrome, symptomatic post permanent pacemaker implantation [employer]'s MRI conditional device([employer]'s [place] XT DR MRI conditional device- [id number]). 7. Mitral valve regurgitation moderate in severity. 8. Aortic valve regurgitation mild to moderate in severity. 9. Tricuspid valve regurgitation moderate in severity with RVSP between 40-50 mmHg on echocardiography performed May 14, 2016/moderate to severe in severity with RVSP of 42 mmHg on echocardiography performed June 12, 2018. 10. Small pericardial effusion on echocardiography performed May 14, 2016- not evident on echocardiography performed June 12, 2018. 11. Cla-hejohnv-eerxuqpsa diabetes mellitus. 12. Hypercholesterolemia. 13. History of organic brain syndrome/dementia. 14. History of trigeminal neuralgia. 15. History of hypothyroidism, currently off of Synthroid therapy(history ofmultinodular goiter). 16. History of degenerative lumbosacral disc disease with chronic low back pain syndrome. 17. History of degenerative joint disease status post total right hip replacement surgery. 18. History of traumatic right femur fracture post open reduction and internal fixation (November 14, 2015). 19. History of chronic anemia. Plan: 1. PT for gait training, analgesia as needed, TLSO brace as tolerated 2. Continue Atenolol 25 bid, Lipitor 40 qd, Aldactone 25 qd 3. Patient was advised to continue above medical therapy including continuation of anticoagulation ELiquis 2.5 bid indefinitely unless it is absolutely contraindicated considering the above-noted [id number] score of 6 4. Pacemaker interrogationnoted and continuationof remote pacemaker monitoring via [employer] service. 5. Empiric abx course per C&S
--- NOTE | 2019-10-25 11:30 | PN ---
Progress Note (short form) - Note Progress Note: no complaints on ceftraixone day #4 Vital Signs Period Temp Pulse Resp BP Sys/Cheung Pulse Ox Last 24 Hr 97.6 F-98.1 F 73-79 14-25 142-162/74-80 93-100 cor-rrr lungs decreased bs at bases abd soft,nt ext no edema CBC, BMP 10/22/19 06:05 10/22/19 06:05 Microbiology 10/22/19 10:47 Blood - Peripheral Venous Blood Culture - Preliminary NO GROWTH OBTAINED AFTER 72 HOURS, INCUBATION TO CONTINUE FOR 2 DAYS. 10/22/19 10:54 Blood - Peripheral Venous Blood Culture - Preliminary NO GROWTH OBTAINED AFTER 72 HOURS, INCUBATION TO CONTINUE FOR 2 DAYS. 10/23/19 13:50 Urine For Antigen Detection Legionella Antigen - Final 10/23/19 13:50 Urine For Antigen Detection Streptococcus pneumoniae Antigen (M - Final 10/19/19 17:10 Urine - Urine Clean Catch Urine Culture - Final Escherichia Coli Normal Urogenital Alem a/p ?Pneumonia UTI-ecoli LEUKOCYTOSIS resolved S/P NEAR SYNCOPE day #4 ceftriaxone, can switch to ceftin in am to finish 7 days
[2019-10-25] MEDS ORDERED: FENTANYL PATCH WASTE TD PRN (11:35)
[2019-10-25] MEDS ORDERED: DOCUSATE SODIUM 100 MG CAPSULE (FP) PO PRN (11:35)
--- NOTE | 2019-10-25 11:37 | PN ---
Progress Note, Physician - Current Medication List Current Medications: Active Medications Acetaminophen (Tylenol -) 650 mg PO Q6H PRN PRN Reason: PAIN LEVEL 4 - 6 Last Admin: 10/24/19 11:31 Dose: 650 mg Documented by: Apixaban (Eliquis -) 2.5 mg PO BID [facility] Last Admin: 10/25/19 09:04 Dose: 2.5 mg Documented by: Atenolol (Tenormin -) 25 mg PO BID [facility] Last Admin: 10/25/19 09:06 Dose: 25 mg Documented by: Atorvastatin Calcium (Lipitor -) 40 mg PO HS [facility] Last Admin: 10/24/19 22:03 Dose: 40 mg Documented by: Carbamazepine (Tegretol -) 400 mg PO BID [facility] Last Admin: 10/25/19 09:06 Dose: 400 mg Documented by: Docusate Sodium (Colace -) 100 mg PO BID PRN PRN Reason: CONSTIPATION Donepezil HCl (Aricept -) 10 mg PO DAILY [facility] Last Admin: 10/25/19 09:04 Dose: 10 mg Documented by: Fentanyl (Duragesic 12mcg Patch -) 1 patch TD Q72H [facility] Stop: 11/01/19 11:35 Ceftriaxone Sodium 1 gm/ (Dextrose) 50 mls @ 200 mls/hr IVPB DAILY [facility]; Protocol Last Admin: 10/25/19 09:05 Dose: 200 mls/hr Documented by: Miscellaneous (Duragesic Patch Waste) 1 each MC PRN PRN PRN Reason: PAIN - Objective Vital Signs: Vital Signs Temperature 97.6 F 10/25/19 08:00 Pulse Rate 79 10/25/19 08:00 Respiratory Rate 25 H 10/25/19 09:00 Blood Pressure 162/74 10/25/19 08:00 O2 Sat by Pulse Oximetry (%) 93 L 10/25/19 09:00 Cardiovascular: Yes: S1, S2 Respiratory: Yes: Regular, CTA Bilaterally Gastrointestinal: Yes: Normal Bowel Sounds, Soft Labs: CBC, BMP 10/22/19 06:05 10/22/19 06:05 INR, PTT INR 1.46 (0.83-1.09) H 10/19/19 14:15 Problem List - Problems (1) Fall Assessment/Plan: PT eval monitor on tele to r/o arrythmia Code(s): W19.XXXA - UNSPECIFIED FALL, INITIAL ENCOUNTER Qualifiers: Encounter type: initial encounter Qualified Code(s): W19.XXXA - Unspecified fall, initial encounter (2) Atrial fibrillation Assessment/Plan: continue with eliquis rate 50--pacemaker interrogation Code(s): I48.91 - UNSPECIFIED ATRIAL FIBRILLATION Qualifiers: Atrial fibrillation type: permanent Qualified Code(s): I48.21 - Permanent atrial fibrillation (3) Hypothyroid Code(s): E03.9 - HYPOTHYROIDISM, UNSPECIFIED Qualifiers: Hypothyroidism type: unspecified Qualified Code(s): E03.9 - Hypothyroidism, unspecified (4) Pacemaker Assessment/Plan: cardio Code(s): Z95.0 - PRESENCE OF CARDIAC PACEMAKER (5) Hypokalemia Assessment/Plan: replace Code(s): E87.6 - HYPOKALEMIA (6) Back pain Assessment/Plan: Compression fx--old pain control--ad duragesic patch pt cxr Code(s): M54.9 - DORSALGIA, UNSPECIFIED (7) UTI (urinary tract infection) Code(s): N39.0 - URINARY TRACT INFECTION, SITE NOT SPECIFIED
[2019-10-25] MEDS ORDERED: fentaNYL 12mcg/hr PATCH.TD72 TD SCH (11:45)
--- NOTE | 2019-10-25 13:01 | PN ---
Progress Note, Physician Chief Complaint: Pt A&Ox3; earlier, when upset and screaming, HR increased to 170s (AF with RVR). Now c/o right scapular pain; no chest pain or palpitations; converses calmly. History of Present Illness: Ms. Espitia is an 84 year old white female with a significant past medical history of Afib (on eliquis), s/p PPM, HTN, HLD, low-normal LVEF, with moderate TR, MR, AR, mild pulmonary HTN on 2017 ECHO (small pericardial effusion noted on 2017 not evident on 2019 ECHO), COPD, gastritis, GERD, lower back pain, OA, osteopenia, recurrent falls who presented to the ED s/p two falls. As per patie nt, her first fall happened when she got out of bed that morning, and she slid out of her chair the second time. Patient endorses she hit her head both times, and currently notes exacerbation of her chronic lower back pain. Denies lightheadedness, chest pain, shortness of breath, or loss of conscio usness. Allergies: Atropine, tape PCP: Dr. Peraza - Current Medication List Current Medications: Active Medications Acetaminophen (Tylenol -) 650 mg PO Q6H PRN PRN Reason: PAIN LEVEL 4 - 6 Last Admin: 10/24/19 11:31 Dose: 650 mg Documented by: Apixaban (Eliquis -) 2.5 mg PO BID [facility] Last Admin: 10/25/19 09:04 Dose: 2.5 mg Documented by: Atenolol (Tenormin -) 25 mg PO BID [facility] Last Admin: 10/25/19 09:06 Dose: 25 mg Documented by: Atorvastatin Calcium (Lipitor -) 40 mg PO HS [facility] Last Admin: 10/24/19 22:03 Dose: 40 mg Documented by: Carbamazepine (Tegretol -) 400 mg PO BID [facility] Last Admin: 10/25/19 09:06 Dose: 400 mg Documented by: Docusate Sodium (Colace -) 100 mg PO BID PRN PRN Reason: CONSTIPATION Donepezil HCl (Aricept -) 10 mg PO DAILY [facility] Last Admin: 10/25/19 09:04 Dose: 10 mg Documented by: Fentanyl (Duragesic 12mcg Patch -) 1 patch TD Q72H [facility] Stop: 08/16/20 11:35 Ceftriaxone Sodium 1 gm/ (Dextrose) 50 mls @ 200 mls/hr IVPB DAILY [facility]; Protocol Last Admin: 10/25/19 09:05 Dose: 200 mls/hr Documented by: Miscellaneous (Duragesic Patch Waste) 1 each MC PRN PRN PRN Reason: PAIN - Objective Vital Signs: Vital Signs Temperature 97.6 F 10/25/19 08:00 Pulse Rate 79 10/25/19 08:00 Respiratory Rate 25 H 10/25/19 09:00 Blood Pressure 162/74 10/25/19 08:00 O2 Sat by Pulse Oximetry (%) 93 L 10/25/19 09:00 Labs: CBC, BMP 10/22/19 06:05 10/22/19 06:05 INR, PTT INR 1.46 (0.83-1.09) H 10/19/19 14:15 Assessment/Plan 1. Mechanical fall, T7 vertebral body fx, chronic T6 compression fx 2.Hypertensive cardiovascular disease 3. Coronary artery disease moderately obstructive coronary artery disease on coronary angiography/October 03, 2010 negative pharmacologic Dipyridamole myocardial perfusion imaging study for myocardial ischemia/May 14, 2016 angina pectoris, clinically stable. 4.Diastolic/systolic left ventricular dysfunction with chronic class I-II [place] [employer] classification left ventricular failure, clinically compensated/euvolemic(history of acute exacerbation). 5. Persistent atrial fibrillation/atypical atrial flutter/atrial tachycardia on chronic anticoagulation therapy with DOACs/Eliquis (adequate dosage age greater than 80 and weight less than 60 kg) [id number] score of 6, rate controlled. 6. Sinus node dysfunction/sick sinus syndrome, symptomatic post permanent pacemaker implantation [employer]'s MRI conditional device([employer]'s [place] XT DR MRI conditional device- [id number]). 7. Mitral valve regurgitation moderate in severity. 8. Aortic valve regurgitation mild to moderate in severity. 9. Tricuspid valve regurgitation moderate in severity with RVSP between 40-50 mmHg on echocardiography performed May 14, 2016/moderate to severe in severity with RVSP of 42 mmHg on echocardiography performed June 12, 2018. 10. Small pericardial effusion on echocardiography performed May 14, 2016- not evident on echocardiography performed June 12, 2018. 11. Qwk-kecjquh-grldljzqr diabetes mellitus. 12. Hypercholesterolemia. 13. History of organic brain syndrome/dementia. 14. History of trigeminal neuralgia. 15. History of hypothyroidism, currently off of Synthroid therapy(history of multinodular goiter). 16. History of degenerative lumbosacral disc disease with chronic low back pain syndrome. 17. History of degenerative joint disease status post total right hip replacement surgery. 18. History of traumatic right femur fracture post open reduction and internal fixation (November 14, 2015). 19. History of chronic anemia. Plan: 1. PT for gait training, analgesia as needed, TLSO brace as tolerated 2. Continue Atenolol 25 bid (increase as needed if HR and BP increase again), Lipitor 40 qd, Aldactone 25 qd 3. Patient was advised to continue above medical therapy including continuation of anticoagulation ELiquis 2.5 bid indefinitely unless it is absolutely contraindicated considering the above-noted [id number] score of 6 4. Pacemaker interrogationnoted and continuationof remote pacemaker monitoring via [employer] service. 5. Empiric abx course per C&S 1. On atenolol 25 mg bid; will increase if episodes of tachycardia recur. 2. Maintain electrolytes WNL 3. Continue spironolactone; consider ACEI; f/u K+ 4.On atorvastation 40 mg daily; f/u lipids 5. Continue apixaban 2.5 mg bid 6. F/u TSH; HGBA1c 7. Physical therapy; pain management. 8. on antibiotics per ID
[2019-10-25] MEDS: ACETAMINOPHEN 325 MG TABLET (FP) PO PRN ×2 (16:29→22:39)
[2019-10-25] MEDS: ATORVASTATIN CA 40 MG TABLET (FP) PO SCH (21:44)
--- NOTE | 2019-10-26 08:49 | DS ---
Physical Examination Vital Signs: Vital Signs Temperature 97.4 F L 10/26/19 04:00 Pulse Rate 59 L 10/26/19 04:00 Respiratory Rate 17 10/26/19 04:00 Blood Pressure 145/83 10/26/19 04:00 O2 Sat by Pulse Oximetry (%) 100 10/26/19 04:00 Cardiovascular: Yes: S1, S2 Respiratory: Yes: Regular, CTA Bilaterally Gastrointestinal: Yes: Normal Bowel Sounds, Soft Labs: CBC, BMP 10/22/19 06:05 10/22/19 06:05 Discharge Summary Problems reviewed: Yes Reason For Visit: FALL Current Active Problems Fall (Acute) Near syncope (Acute) Pacemaker (Acute) UTI (urinary tract infection) (Acute) Hospital Course: - Problems (1) Fall Assessment/Plan: PT eval monitor on tele to r/o arrythmia Code(s): W19.XXXA - UNSPECIFIED FALL, INITIAL ENCOUNTER Qualifiers: Encounter type: initial encounter Qualified Code(s): W19.XXXA - Unspecified fall, initial encounter (2) Atrial fibrillation Assessment/Plan: continue with eliquis rate 50--pacemaker interrogation Code(s): I48.91 - UNSPECIFIED ATRIAL FIBRILLATION Qualifiers: Atrial fibrillation type: permanent Qualified Code(s): I48.21 - Permanent atrial fibrillation (3) Hypothyroid Code(s): E03.9 - HYPOTHYROIDISM, UNSPECIFIED Qualifiers: Hypothyroidism type: unspecified Qualified Code(s): E03.9 - Hypothyroidism, unspecified (4) Pacemaker Assessment/Plan: cardio Code(s): Z95.0 - PRESENCE OF CARDIAC PACEMAKER (5) Hypokalemia Assessment/Plan: replace Code(s): E87.6 - HYPOKALEMIA (6) Back pain Assessment/Plan: Compression fx--old pain control pt Code(s): M54.9 - DORSALGIA, UNSPECIFIED (7) UTI (urinary tract infection) Assessment/Plan: on rocephin to ceftin on dc Code(s): N39.0 - URINARY TRACT INFECTION, SITE NOT SPECIFIED Condition: Stable - Instructions Referrals: Venkat Peraza MD [Primary Care Provider] - - Home Medications Comprehensive Discharge Medication List: Ambulatory Orders Atenolol [Tenormin -] 72 mg PO BID 05/10/16 Atorvastatin Ca [Lipitor] 40 mg PO HS #30 tablet 05/14/16 Apixaban [Eliquis] 2.5 mg PO BID 10/18/19 Biotin 1,000 mcg PO DAILY 10/18/19 Carbamazepine 400 mg PO BID 10/18/19 Cranberry Fruit Extract [Cranberry] 750 mg PO DAILY 10/18/19 Donepezil HCl [Aricept] 10 mg PO DAILY 10/18/19 [place]fe-3 Fatty Acids/Fish Oil [Fish Oil 1,000 mg Capsule] 1 each PO DAILY 10/18/19 Acetaminophen [Tylenol .Regular Strength -] 650 mg PO Q6H PRN tablet 10/23/19 Cefuroxime Axetil [Ceftin -] 250 mg PO BID #14 tablet 10/23/19 oxyCODONE HCL [Roxicodone -] 5 mg PO Q6H PRN tablet 10/23/19
[2019-10-26] MEDS ORDERED: cefTRIAXone SODIUM 1 GM VIAL ONE (10:28)
[2019-10-26] MEDS ORDERED: DEXTROSE 5%-WATER - 50 ML IVPB ONE (10:29)
[2019-10-26] MEDS: oxyCODONE HCL 5 MG TABLET PO PRN ×3 (10:31→23:47)
[2019-10-26] MEDS: DONEPEZIL HCL 10 MG TABLET (FP) PO SCH (10:33)
[2019-10-26] MEDS: APIXABAN 2.5 MG TABLET PO SCH ×2 (10:33→21:06)
[2019-10-26] MEDS: ATENOLOL 25 MG TABLET (FP) PO SCH ×2 (10:33→21:05)
[2019-10-26] MEDS: carBAMazepine 200 MG TABLET PO SCH ×2 (10:33→21:05)
[2019-10-26] MEDS: CEFTRIAXONE 1 GM in DEXTROSE 5%-WATER - 50 ML IVPB SCH (10:34)
--- NOTE | 2019-10-26 11:38 | PN ---
Progress Note, Physician History of Present Illness: =84-year-old female with known history of coronary artery disease moderately obstructive coronary artery disease on coronary angiography/October 03, 2010 negative pharmacologic Dipyridamole myocardial perfusion imaging study for myocardial ischemia/June 16, 2013 status post non-ST segment elevation myocardial infarction/demand ischemic injury/May 10, 2016 negative pha rmacologic Dipyridamole myocardial perfusion imaging study for myocardial ischemia/May 14, 2016 angina pectoris, diastolic/systolic left ventricular dysfunction with chronic class I-II [place] [employer] classification left ventricular failure (LVEF between 50-55% on echocardiography performed June 12, 2018), persistent atrial fibrillation/atypical atrial flutter/atrial tachycardia on chronic anticoagulation therapy with DOACs/Eliquis [id number] score of 6, sick sinus syndrome post permanent pacemaker implantation ([employer]'s [place] XT DR MRI conditional device- [id number] n [id number]), mitral valve regurgitation moderate in severity on echocardiography performed May 14, 2016/June 12, 2018, aortic valve regurgitation mild to moderate in severity, tricuspid valve regurgitation moderate in severity with RVSP of 39 mmHg on echocardiography performed November 08, 2014/RVSP between 40-50 mmHg on echocardiography performed May 14, 2016/moderate to severe in severity with RVSP of 42 mmHg on echocardiography performed June 12, 2018, small pericardial effusion on echocardiography performed May 14, 2016- not evident on echocardiography performed June 12, 2018, hypertensive cardiovascular disease, ouh-tuyhoix-fzadbnkmw diabetes mellitus, hypercholesterolemia, organic brain syndrome/dementia, trigeminal neuralgia- persistent symptomatology,hypothyroidism, currently off of Synthroid therapy(history ofmultinodular goiter), degenerative lumbosacral disc disease with chronic low back pain syndrome, degenerative joint disease status post total right hip replacement surgery, post traumatic right femur fracture post open reduction and internal fixation (November 14, 2015) and chronic anemia who was last evaluated in the officeJun2019. Since the above evaluation, patient presented to the ED due to 2x falls. The first time she rolled out of bed, and the second time she slid out of her chair. She is unable to explain how she fell. She reports that she hit her head both times, but is unsure about LOC. Denies any preceding lightheadedness, chest pain, SOB, or LOC. She is currently reporting improving lower back pain, which i s chronic but worse now referable to acute T7 vertebral body fracture, left- sided reproducible chest wall pain. Pacemaker interrogated normal fxn, 12.6 years left. - Current Medication List Current Medications: Active Medications Acetaminophen (Tylenol -) 650 mg PO Q6H PRN PRN Reason: PAIN LEVEL 4 - 6 Last Admin: 10/25/19 22:39 Dose: 650 mg Documented by: Apixaban (Eliquis -) 2.5 mg PO BID [facility] Last Admin: 10/26/19 10:33 Dose: 2.5 mg Documented by: Atenolol (Tenormin -) 25 mg PO BID [facility] Last Admin: 10/26/19 10:33 Dose: 25 mg Documented by: Atorvastatin Calcium (Lipitor -) 40 mg PO HS [facility] Last Admin: 10/25/19 21:44 Dose: 40 mg Documented by: Carbamazepine (Tegretol -) 400 mg PO BID [facility] Last Admin: 10/26/19 10:33 Dose: 400 mg Documented by: Docusate Sodium (Colace -) 100 mg PO BID PRN PRN Reason: CONSTIPATION Donepezil HCl (Aricept -) 10 mg PO DAILY [facility] Last Admin: 10/26/19 10:33 Dose: 10 mg Documented by: Fentanyl (Duragesic 12mcg Patch -) 1 patch TD Q72H [facility] Stop: 11/01/19 11:35 Last Admin: 10/25/19 13:17 Dose: 1 patch Documented by: Ceftriaxone Sodium 1 gm/ (Dextrose) 50 mls @ 200 mls/hr IVPB DAILY [facility]; Protocol Last Admin: 10/26/19 10:34 Dose: 200 mls/hr Documented by: Miscellaneous (Duragesic Patch Waste) 1 each TD PRN PRN PRN Reason: PAIN Oxycodone HCl (Roxicodone -) 5 mg PO Q6H PRN PRN Reason: PAIN LEVEL 7 - 10 Last Admin: 10/26/19 10:31 Dose: 5 mg Documented by: - Objective Vital Signs: Vital Signs Temperature 98.2 F 10/26/19 08:00 Pulse Rate 72 10/26/19 08:00 Respiratory Rate 18 10/26/19 08:00 Blood Pressure 134/82 10/26/19 08:00 O2 Sat by Pulse Oximetry (%) 98 10/26/19 08:00 Constitutional: Yes: No Distress, Calm, Thin Neck: Yes: Supple Cardiovascular: Yes: Regular Rate and Rhythm Respiratory: Yes: Regular, Diminished, On Nasal O2 Gastrointestinal: Yes: Soft, Hypoactive Bowel Sounds Edema: No Labs: CBC, BMP 10/22/19 06:05 10/22/19 06:05 INR, PTT INR 1.46 (0.83-1.09) H 10/19/19 14:15 - ....Imaging EKG: Report Reviewed Problem List - Problems (1) Atrial fibrillation Code(s): I48.91 - UNSPECIFIED ATRIAL FIBRILLATION Qualifiers: Atrial fibrillation type: permanent Qualified Code(s): I48.21 - Permanent atrial fibrillation (2) Hypercholesterolemia Code(s): E78.0 - PURE HYPERCHOLESTEROLEMIA * DO NOT USE * (3) Hypertensive cardiovascular disease Code(s): I11.9 - HYPERTENSIVE HEART DISEASE WITHOUT HEART FAILURE Qualifiers: Heart failure presence: without heart failure Qualified Code(s): I11.9 - Hypertensive heart disease without heart failure (4) Hypothyroid Code(s): E03.9 - HYPOTHYROIDISM, UNSPECIFIED Qualifiers: Hypothyroidism type: unspecified Qualified Code(s): E03.9 - Hypothyroidism, unspecified (5) Pacemaker Code(s): Z95.0 - PRESENCE OF CARDIAC PACEMAKER Assessment/Plan 10/12/2019 Echo Conclusions: 1. LV size is normal. LV thickness is normal. Left ventricular systolic function is borderline normal. No segmental wall motion abnormalities present. 2. There is mild left atrial enlargement. There is mild right atrial enlargement. 3. Right ventricular size is normal. 4. The aortic valve is structurally normal. Mild to moderate aortic insufficiency is present. Aortic root dimension is normal. The ascending aorta is normal. 5. Mild thickening of the mitral valve leaflets. Mild to moderate mitral regurgitation is present. 6. The tricuspid valve is structurally normal. Mild tricuspid regurgitation is present. The structure of the pulmonic valve is normal. Mild pulmonary regurgitation is present. 7. No pericardial effusion. 8. The pulmonary artery systolic pressure is at least 29 mmHg based on an RA p ressure of 3 mmHg. 9. Linear echodensity in right cardiac chamber c/w pacemaker lead. Clinical Correlation/Compared to previous: Compared to previous study on 06/12/18, there is no significant change. Echocardiography performed June 12, 2018 revealed normal left ventricular size with borderline left ventricular systolic function and estimated LVEF between 50-55%, moderate left atrial dilatation, moderate right atrial dilatation, mildly reduced right ventricular systolic function, aortic valve leaflet sclerosis without leaflet restriction and mild to moderate aortic valve regurgitation, moderate mitral valve regurgitation, moderate to severe tricuspid valve regurgitation with calculated RVSP of 42 mmHg, linear echodensity seen in the right cardiac chamber compatible with a pacemaker lead. Pharmacologic Dipyridamole myocardial perfusion imaging study performed May 14, 2016 revealed normal myocardial perfusion scan with normal left ventricular contraction pattern on LV gated analysis with calculated left ventricular ejection fraction of 59% Assessment: 1. Mechanical fall, T7 vertebral body fx, chronic T6 compression fx 2.Hypertensive cardiovascular disease 3. Coronary artery disease moderately obstructive coronary artery disease on coronary angiography/October 03, 2010 negative pharmacologic Dipyridamole myoca rdial perfusion imaging study for myocardial ischemia/May 14, 2016 angina pectoris, clinically stable. 4.Diastolic/systolic left ventricular dysfunction with chronic class I-II [place] Heart Association classification left ventricular failure, clinically compensated/euvolemic(history of acute exacerbation). 5. Persistent atrial fibrillation/atypical atrial flutter/atrial tachycardia on chronic anticoagulation therapy with DOACs/Eliquis (adequate dosage age greater than 80 and weight less than 60 kg) [id number] score of 6, rate controlled. 6. Sinus node dysfunction/sick sinus syndrome, symptomatic post permanent pacemaker implantation [employer]'s MRI conditional device([employer]'s [place] XT DR MRI conditional device- [id number]). 7. Mitral valve regurgitation moderate in severity. 8. Aortic valve regurgitation mild to moderate in severity. 9. Tricuspid valve regurgitation moderate in severity with RVSP between 40-50 mmHg on echocardiography performed May 14, 2016/moderate to severe in severity with RVSP of 42 mmHg on echocardiography performed June 12, 2018. 10. Small pericardial effusion on echocardiography performed May 14, 2016- not evident on echocardiography performed June 12, 2018. 11. Vnd-ilzytzr-jbepxtkgn diabetes mellitus. 12. Hypercholesterolemia. 13. History of organic brain syndrome/dementia. 14. History of trigeminal neuralgia. 15. History of hypothyroidism, currently off of Synthroid therapy(history ofmultinodular goiter). 16. History of degenerative lumbosacral disc disease with chronic low back pain syndrome. 17. History of degenerative joint disease status post total right hip replacement surgery. 18. History of traumatic right femur fracture post open reduction and internal fixation (November 14, 2015). 19. History of chronic anemia. Plan: 1. PT for gait training, analgesia as needed, TLSO brace as tolerated 2. Continue Atenolol 25 bid, Lipitor 40 qd, Aldactone 25 qd 3. Patient was advised to continue above medical therapy including continuation of anticoagulation ELiquis 2.5 bid indefinitely unless it is absolutely contraindicated considering the above-noted [id number] score of 6 4. Pacemaker interrogationnoted and continuationof remote pacemaker monitoring via [employer] service. 5. Empiric abx course per C&S
[2019-10-26] MEDS ORDERED: PT OWN MED DRAWER 7, Y5N ONE ×3 (12:12→21:07)
[2019-10-26 13:48] VITALS: BMI 20.5
--- NOTE | 2019-10-26 13:54 | PN ---
Progress Note, Physician History of Present Illness: AWAKE, RESPONSIVE IN BED EXTREMELY WEAK APPEARING BREATHING NON-LABORED ON NC AFEBRILE WBC IMPROVED WNL BC (-) URINE C/S E COLI - Current Medication List Current Medications: Active Medications Acetaminophen (Tylenol -) 650 mg PO Q6H PRN PRN Reason: PAIN LEVEL 4 - 6 Last Admin: 10/25/19 22:39 Dose: 650 mg Documented by: Apixaban (Eliquis -) 2.5 mg PO BID [facility] Last Admin: 10/26/19 10:33 Dose: 2.5 mg Documented by: Atenolol (Tenormin -) 25 mg PO BID [facility] Last Admin: 10/26/19 10:33 Dose: 25 mg Documented by: Atorvastatin Calcium (Lipitor -) 40 mg PO [facility] Last Admin: 10/25/19 21:44 Dose: 40 mg Documented by: Carbamazepine (Tegretol -) 400 mg PO BID [facility] Last Admin: 10/26/19 10:33 Dose: 400 mg Documented by: Docusate Sodium (Colace -) 100 mg PO BID PRN PRN Reason: CONSTIPATION Donepezil HCl (Aricept -) 10 mg PO DAILY [facility] Last Admin: 10/26/19 10:33 Dose: 10 mg Documented by: Fentanyl (Duragesic 12mcg Patch -) 1 patch TD Q72H [facility] Stop: 11/01/19 11:35 Last Admin: 10/25/19 13:17 Dose: 1 patch Documented by: Ceftriaxone Sodium 1 gm/ (Dextrose) 50 mls @ 200 mls/hr IVPB DAILY [facility]; Protocol Last Admin: 10/26/19 10:34 Dose: 200 mls/hr Documented by: Miscellaneous (Duragesic Patch Waste) 1 each TD PRN PRN PRN Reason: PAIN Oxycodone HCl (Roxicodone -) 5 mg PO Q6H PRN PRN Reason: PAIN LEVEL 7 - 10 Last Admin: 10/26/19 10:31 Dose: 5 mg Documented by: - Objective Vital Signs: Vital Signs Temperature 98.2 F 10/26/19 08:00 Pulse Rate 67 10/26/19 12:00 Respiratory Rate 18 10/26/19 12:00 Blood Pressure 126/79 10/26/19 12:00 O2 Sat by Pulse Oximetry (%) 99 10/26/19 12:00 Constitutional: Yes: No Distress Cardiovascular: Yes: Regular Rate and Rhythm, S1, S2 Respiratory: Yes: CTA Bilaterally Gastrointestinal: Yes: Normal Bowel Sounds, Soft. No: Tenderness Edema: No Labs: CBC, BMP 10/22/19 06:05 10/22/19 06:05 INR, PTT INR 1.46 (0.83-1.09) H 10/19/19 14:15 Assessment/Plan R/O COMMUNITY ACQUIRED V. ATYPICAL PNEUMONIA UTI LEUKOCYTOSIS RESOLVED S/P NEAR SYNCOPE SUBSTITUTE PO CEFTIN COMPLETE 7D COURSE
[2019-10-26] MEDS: ACETAMINOPHEN 325 MG TABLET (FP) PO PRN ×2 (14:56→23:47)
[2019-10-26] MEDS ORDERED: LIDOCAINE 5% TOPICAL PATCH TP ONE ×2 (20:25→20:28)
[2019-10-26] MEDS: ATORVASTATIN CA 40 MG TABLET (FP) PO SCH (21:06)
[2019-10-26] MEDS: CEFUROXIME AXETIL 500 MG TABLET PO SCH (21:06)
[2019-10-26] MEDS ORDERED: LIDOCAINE PATCH REMOVAL MC SCH (22:00)
--- NOTE | 2019-10-27 06:36 | PN ---
Progress Note (short form) - Note Progress Note: Chief Complaint: Events noted, notes reviewed, reporting persistent sharp left- sided chest wall discomfort which is exacerbated by respiration and movements, denies dyspnea History of Present Illness: Seen and examined on telemetry. Events noted, notes reviewed, reporting persistent sharp left-sided chest wall discomfort which is exacerbated by respiration and movements, denies dyspnea Medications: Current Medications Generic Name Dose Route Start Last Admin Trade Name Freq PRN Reason Stop Dose Admin Acetaminophen 650 mg 10/20/19 00:38 10/26/19 23:47 Tylenol - PO 650 mg Q6H PRN Administration PAIN LEVEL 4 - 6 Apixaban 2.5 mg 10/20/19 10:00 10/26/19 21:06 Eliquis - PO 2.5 mg BID ANTHONY Administration Atenolol 25 mg 10/21/19 22:00 10/26/19 21:05 Tenormin - PO 25 mg BID ANTHONY Administration Atorvastatin Calcium 40 mg 10/21/19 22:00 10/26/19 21:06 Lipitor - PO 40 mg HS ANTHONY Administration Carbamazepine 400 mg 10/21/19 22:00 10/26/19 21:05 Tegretol - PO 400 mg BID ANTHONY Administration Cefuroxime Axetil 500 mg 10/26/19 22:00 10/26/19 21:06 Ceftin - PO 500 mg BID ANTHONY Administration Docusate Sodium 100 mg 10/25/19 11:35 Colace - PO BID PRN CONSTIPATION Donepezil HCl 10 mg 10/20/19 10:00 10/26/19 10:33 Aricept - PO 10 mg DAILY ANTHONY Administration Fentanyl 1 patch 10/25/19 11:45 10/25/19 13:17 Duragesic 12mcg Patch - TD 11/01/19 11:35 1 patch Q72H ANTHONY Administration Miscellaneous 1 each 10/25/19 11:35 Duragesic Patch Waste TD PRN PRN PAIN Miscellaneous 1 each 10/27/19 08:30 Lidoderm Patch Removal MC 10/27/19 11:11 DAILY@0830 ANTHONY Oxycodone HCl 5 mg 10/26/19 08:45 10/26/19 23:47 Roxicodone - PO 5 mg Q6H PRN Administration PAIN LEVEL 7 - 10 Review of Systems Constitutional: denies Chills or Fever Respiratory: denies: Dyspnea Cardiovascular: As noted above Gastrointestinal: denies Nausea, Vomiting, Diarrhea or Constipation or Abdominal Discomfort Genitourinary: No Symptoms Reported Musculoskeletal: No Symptoms Reported Vital Signs: Last Vital Signs Temp Pulse Resp BP Pulse Ox 97.6 F 71 16 156/88 100 10/27/19 04:00 10/27/19 04:00 10/27/19 04:00 10/27/19 04:00 10/27/19 04:00 Intake & Output 10/24/19 10/25/19 10/26/19 10/27/19 23:59 23:59 23:59 23:59 Intake Total 120 600 400 200 Output Total 200 500 200 Balance 120 400 -100 0 Weight 105 lb Neck: Supple Negative JVD Respiratory: Diminished Breath Sounds at the Bases Cardiovascular: S1 S2 Irregularly irregular Gastrointestinal: Soft Benign Normal Bowel Sounds Ext: Negative Edema Labs: CBC, BMP 10/22/19 06:05 10/22/19 06:05 Hepatic Panel Total Bilirubin 0.9 mg/dL (0.2-1) 10/22/19 06:05 AST 21 U/L (15-37) 10/22/19 06:05 ALT 17 U/L (13-61) 10/22/19 06:05 Alkaline Phosphatase 98 U/L (45-117) 10/22/19 06:05 Albumin 2.8 g/dl (3.4-5.0) L 10/22/19 06:05 Assessment/Plan ASSESSMENT: 1. Post mechanical fall with T7 vertebral body compression fracture, history of chronic T6 compression fracture 2. Chest pain syndrome/chest wall tenderness 3. Coronary artery disease angina pectoris, clinically stable 4. Diastolic/systolic left ventricular dysfunction with chronic class I [place] [employer] classification left ventricular failure, clinically compensated/euvolemic history of acute exacerbations 5. Persistent atrial fibrillation/atypical atrial flutter/atrial tachycardia on chronic anticoagulation therapy with DOAC's/Eliquis- [id number] score of 6 6. Sick sinus syndrome symptomatic post permanent pacemaker implantation 7. Hypertensive cardiovascular disease 8. [id number] diabetes mellitus 9. Hypercholesterolemia 10. Mitral valve regurgitation 11. Aortic valve regurgitation 12. Tricuspid valve regurgitation with mild to moderate degree of pulmonary hypertension 13. History of organic brain syndrome. 14. History of trigeminal neuralgia. 15. History of hypothyroidism 16. History of degenerative lumbosacral disc disease with chronic low back pain syndrome 17. History of degenerative joint disease PLAN: 1. Continue Tenormin therapy 2. Continue anticoagulation therapy with DOAC's/Eliquis 3. Continue Lipitor therapy 4. Pain management as per the primary team Nikki Brown MD
[2019-10-27] MEDS: oxyCODONE HCL 5 MG TABLET PO PRN ×2 (08:11→13:55)
[2019-10-27] MEDS ORDERED: LIDOCAINE PATCH REMOVAL MC SCH (08:30)
[2019-10-27] MEDS ORDERED: PT OWN MED DRAWER 7, Y5N ONE (08:59)
[2019-10-27] MEDS: DONEPEZIL HCL 10 MG TABLET (FP) PO SCH (09:08)
[2019-10-27] MEDS: APIXABAN 2.5 MG TABLET PO SCH (09:08)
[2019-10-27] MEDS: ATENOLOL 25 MG TABLET (FP) PO SCH (09:09)
--- NOTE | 2019-10-27 09:53 | DS ---
Physical Examination Vital Signs: Vital Signs Temperature 98.3 F 10/27/19 08:00 Pulse Rate 76 10/27/19 08:00 Respiratory Rate 14 10/27/19 08:00 Blood Pressure 159/78 10/27/19 08:00 O2 Sat by Pulse Oximetry (%) 99 10/27/19 08:00 Cardiovascular: Yes: Regular Rate and Rhythm Respiratory: Yes: Regular, CTA Bilaterally Gastrointestinal: Yes: Normal Bowel Sounds, Soft Labs: CBC, BMP 10/22/19 06:05 10/22/19 06:05 Discharge Summary Problems reviewed: Yes Reason For Visit: FALL Current Active Problems Fall (Acute) Near syncope (Acute) Pacemaker (Acute) UTI (urinary tract infection) (Acute) Hospital Course: - Problems (1) Fall Assessment/Plan: PT eval monitor on tele to r/o arrythmia Code(s): W19.XXXA - UNSPECIFIED FALL, INITIAL ENCOUNTER Qualifiers: Encounter type: initial encounter Qualified Code(s): W19.XXXA - Unspecified fall, initial encounter (2) Atrial fibrillation Assessment/Plan: continue with eliquis rate 50--pacemaker interrogation Code(s): I48.91 - UNSPECIFIED ATRIAL FIBRILLATION Qualifiers: Atrial fibrillation type: permanent Qualified Code(s): I48.21 - Permanent atrial fibrillation (3) Hypothyroid Code(s): E03.9 - HYPOTHYROIDISM, UNSPECIFIED Qualifiers: Hypothyroidism type: unspecified Qualified Code(s): E03.9 - Hypothyroidism, unspecified (4) Pacemaker Assessment/Plan: cardio Code(s): Z95.0 - PRESENCE OF CARDIAC PACEMAKER (5) Hypokalemia Assessment/Plan: replace Code(s): E87.6 - HYPOKALEMIA (6) Back pain Assessment/Plan: Compression fx--old pain control pt Code(s): M54.9 - DORSALGIA, UNSPECIFIED (7) UTI (urinary tract infection) Assessment/Plan: on rocephin to ceftin on dc Code(s): N39.0 - URINARY TRACT INFECTION, SITE NOT SPECIFIED Condition: Stable - Instructions Referrals: Venkat Peraza MD [Primary Care Provider] - - Home Medications Comprehensive Discharge Medication List: Ambulatory Orders Atenolol [Tenormin -] 72 mg PO BID 05/10/16 Atorvastatin Ca [Lipitor] 40 mg PO HS #30 tablet 05/14/16 Apixaban [Eliquis] 2.5 mg PO BID 10/18/19 Biotin 1,000 mcg PO DAILY 10/18/19 Carbamazepine 400 mg PO BID 10/18/19 Cranberry Fruit Extract [Cranberry] 750 mg PO DAILY 10/18/19 Donepezil HCl [Aricept] 10 mg PO DAILY 10/18/19 [place]-3 Fatty Acids/Fish Oil [Fish Oil 1,000 mg Capsule] 1 each PO DAILY 10/18/19 Acetaminophen [Tylenol .Regular Strength -] 650 mg PO Q6H PRN tablet 10/23/19 oxyCODONE HCL [Roxicodone -] 5 mg PO Q6H PRN tablet 10/23/19 Cefuroxime Axetil [Ceftin -] 500 mg PO BID tablet 10/27/19
[2019-10-27 12:29] LABS: BASO % 0.6 % (0-2.0); HEMATOCRIT 38.2 % (32.4-45.2); HEMOGLOBIN 12.6 GM/dL (10.7-15.3); MCH 29.5 pg (25.7-33.7); MCHC 32.9 g/dl (32.0-36.0); MEAN CELL VOLUME 89.6 fl (80-96); MEAN PLT VOLUME 6.8 fl (7.5-11.1); MONO % 7.6 % (3.8-10.2); NEUT % 75.8 % (42.8-82.8); PLATELET COUNT 340 K/MM3 (134-434); RBC 4.27 M/mm3 (3.60-5.2); RDW 15.3 % (11.6-15.6); WHITE BLOOD COUNT 10.2 K/mm3 (4.0-10.0)
[2019-10-27] MEDS: CEFUROXIME AXETIL 500 MG TABLET PO SCH (12:55)
[2019-10-27] MEDS: ACETAMINOPHEN 325 MG TABLET (FP) PO PRN (12:56)
[2019-10-27] MEDS: carBAMazepine 200 MG TABLET PO SCH (12:56)
[2019-10-27 13:00] LABS: ALBUMIN 2.8 g/dl (3.4-5.0); BILIRUBIN,TOTAL 0.3 mg/dL (0.2-1); BLOOD UREA NITROGEN 6.6 mg/dL (7-18); CALCIUM 9.3 mg/dL (8.5-10.1); CREATININE 0.4 mg/dL (0.55-1.3); TOT PROT 6.2 g/dl (6.4-8.2)
[2019-10-27 14:56] VITALS: TEMP 97.5
[2019-10-27 16:56] VITALS: BP 131/69; PULSE 80
== END 2019-10-27 17:30 | DRG 552 ==
LOC: JER 13:34 → JERBED 15:33 → JICU 10-20 15:51 → OBSVTOIN 10-22 08:54
PROVIDERS: ADMIT Internal Medicine; ATTEND Family Medicine
DX: S22.069A Unspecified fracture of T7-T8 vertebra, initial encounter for closed fracture (principal); I50.1 Left ventricular failure, unspecified; I48.21 Permanent atrial fibrillation; N39.0 Urinary tract infection, site not specified; I50.42 Chronic combined systolic (congestive) and diastolic (congestive) heart failure; R64 Cachexia; I48.92 Unspecified atrial flutter; I11.0 Hypertensive heart disease with heart failure; R55 Syncope and collapse; M54.9 Dorsalgia, unspecified; E78.00 Pure hypercholesterolemia, unspecified; E87.6 Hypokalemia; E03.9 Hypothyroidism, unspecified; J44.9 Chronic obstructive pulmonary disease, unspecified; K21.9 Gastro-esophageal reflux disease without esophagitis; K29.70 Gastritis, unspecified, without bleeding; M19.90 Unspecified osteoarthritis, unspecified site; M85.80 Other specified disorders of bone density and structure, unspecified site; F03.90 Unspecified dementia, unspecified severity, without behavioral disturbance, psychotic disturbance, mood disturbance, and anxiety; M41.9 Scoliosis, unspecified; R29.6 Repeated falls; Z68.20 Body mass index [BMI] 20.0-20.9, adult; R07.1 Chest pain on breathing; I25.119 Atherosclerotic heart disease of native coronary artery with unspecified angina pectoris; W19.XXXA Unspecified fall, initial encounter; Y93.9 Activity, unspecified; Y92.9 Unspecified place or not applicable; Y99.9 Unspecified external cause status; D72.829 Elevated white blood cell count, unspecified; Z95.0 Presence of cardiac pacemaker; B96.20 Unspecified Escherichia coli [E. coli] as the cause of diseases classified elsewhere; E78.5 Hyperlipidemia, unspecified
CPT/HCPCS: 36415; 70450-TC; 71045-TC-FY; 71101-TC-LT-FY; 71250-TC; 72125-TC; 72128-TC; 72131-TC; 80048; 80053; 81003; 82550; 83735; 84484; 85025; 85610; 85730; 87040; 87086; 87186; 87899; 93005; 93010; 97116-GP; 97161-GP; 99285-25; G0378; J0131; U0003

== ENCOUNTER 2020-09-23 15:12 | Inpatient (IN) | payer OTHER ==
[2020-09-23 15:35] VITALS: BMI 19.1
[2020-09-23] MEDS ORDERED: SODIUM CHLORIDE 1,293 ML IV ONE (16:10)
[2020-09-23 17:25] LABS: BASO % 0.4 % (0-2.0); EOS % 0.1 % (0-4.5); HEMATOCRIT 43.9 % (32.4-45.2); HEMOGLOBIN 13.7 GM/dL (10.7-15.3); LYMPH % 12.4 % (8-40); MCH 29.3 pg (25.7-33.7); MCHC 31.2 g/dl (32.0-36.0); MEAN CELL VOLUME 94.1 fl (80-96); MONO % 13.6 % (3.8-10.2); NEUT % 73.5 % (42.8-82.8); PLATELET COUNT 349 10^3/uL (134-434); RBC 4.67 M/mm3 (3.60-5.2); RDW 18.2 % (11.6-15.6); WHITE BLOOD COUNT 11.4 K/mm3 (4.0-10.0)
[2020-09-23 17:32] LABS: PROTHROMBIN TIME (PATIENT) 48.5 SEC (9.7-13.0)
[2020-09-23 17:35] LABS: ACTIVATED PTT 44.6 SECONDS (25.2-36.5)
[2020-09-23 17:36] LABS: VENOUS BASE EXCESS -2.1 mmol/L (-2-2); VENOUS PH 7.211 (7.310-7.410)
[2020-09-23 17:38] LABS: VENOUS PCO2 70.4 mmHg (38-52)
[2020-09-23 17:39] LABS: INR 4.11 (0.83-1.09)
[2020-09-23 17:47] LABS: CHLORIDE 94 mmol/L (98-107); SODIUM 131 mmol/L (136-145)
[2020-09-23 17:53] LABS: CALCIUM 9.8 mg/dL (8.5-10.1); CO2 25 mmol/L (21-32); GLUCOSE,RANDOM 121 mg/dL (74-106)
[2020-09-23 17:54] LABS: ALBUMIN 3.6 g/dl (3.4-5.0); BLOOD UREA NITROGEN 47.1 mg/dL (7-18)
[2020-09-23 17:55] LABS: SGOT/AST 311 U/L (15-37); SGPT/ALT 152 U/L (13-61)
[2020-09-23 17:57] LABS: BILIRUBIN,TOTAL 0.9 mg/dL (0.2-1); CREATININE 1.4 mg/dL (0.55-1.3); TOT PROT 7.3 g/dl (6.4-8.2)
[2020-09-23 17:59] LABS: LACTIC ACID 6.3 mmol/L (0.4-2.0)
[2020-09-23 18:01] LABS: ALK PHOS 108 U/L (45-117)
[2020-09-23] MEDS ORDERED: PIPERACILLIN/TAZOB 3.375 GM 3.375 GM in DEXTROSE 5%-WATER - 50 ML IVPB ONE (18:14)
[2020-09-23] MEDS ORDERED: VANCOMYCIN 1,000 MG in DEXTROSE 5%-WATER - 250 ML IVPB ONE (18:15)
[2020-09-23] MEDS ORDERED: PIPERACILLIN/TAZOB 3.375 GM 3.375 GM/50 ML BAG IVPB ONE (18:21)
[2020-09-23] MEDS ORDERED: VANCOMYCIN 1 GRAM (PRE-DOCKED) 1,000 MG/250 ML BAG IVPB ONE (18:21)
[2020-09-23] MEDS ORDERED: SODIUM CHLORIDE 0.9% 500 ML INFUS.BAG IV ONE (18:21)
[2020-09-23 18:38] LABS: ANION GAP 12 MMOL/L (8-16)
[2020-09-23 18:40] LABS: ARTERIAL BLD GAS O2 SATURATION 98.3 mmHg (95-98); ARTERIAL BLOOD GAS BASE EXCESS -9.7 mmol/L (-2-2); ARTERIAL BLOOD GAS PO2 148.2 mmHg (80-100)
[2020-09-23] MEDS ORDERED: CALCIUM GLUCONATE 10% - 1,000 MG/10 ML VIAL IVPB ONE (18:41)
[2020-09-23] MEDS ORDERED: INSULIN REGULAR HUMAN 100 UNITS/ML *VIAL IVPUSH ONE ×2 (18:41→18:44)
[2020-09-23] MEDS ORDERED: DEXTROSE 50%-WATER - 25 GM/50 ML VIAL IVPUSH ONE (18:41)
[2020-09-23 18:44] LABS: ARTERIAL BLOOD GAS pH 7.167 (7.350-7.450)
[2020-09-23] MEDS ORDERED: SODIUM BICARBONATE 8.4% 50 MEQ/50 ML VIAL IVPUSH ONE (18:48)
[2020-09-23] MEDS ORDERED: SODIUM BICARBONATE 8.4% 50 MEQ/50 ML VIAL ONE (19:02)
[2020-09-23] MEDS ORDERED: DEXTROSE 50%-WATER 25 GM/50 ML DISP.SYRIN ONE (19:02)
[2020-09-23] MEDS ORDERED: CALCIUM GLUCONATE 10% - 1,000 MG/10 ML VIAL ONE (19:02)
[2020-09-23 21:11] LABS: CALCIUM 8.6 mg/dL (8.5-10.1)
[2020-09-23 21:12] LABS: BLOOD UREA NITROGEN 42.9 mg/dL (7-18)
[2020-09-23 21:15] LABS: CREATININE 1.2 mg/dL (0.55-1.3)
[2020-09-23 21:20] LABS: LACTIC ACID 5.8 mmol/L (0.4-2.0)
[2020-09-23 22:47] LABS: EPI CELLS >36 /uL (0-25.1); HYALINE CASTS 19 /uL (0-3.1); URINE APPEARANCE CLOUDY; URINE BACTERIA 7 /uL (0-1359); URINE BILIRUBIN NEGATIVE (NEGATIVE); URINE COLOR DK YELLOW; URINE GLUCOSE (UA) NEGATIVE (NEGATIVE); URINE KETONE NEGATIVE (NEGATIVE); URINE LEUK ESTERASE NEGATIVE (NEGATIVE); URINE NITRITE NEGATIVE (NEGATIVE); URINE PROTEIN 1+ (NEGATIVE); URINE RBC 20 /uL (0-23.9)
[2020-09-23] MEDS ORDERED: LACTATED RINGERS SOLUTION 1000 ML INFUS.BAG IV ONE (23:32)
[2020-09-24] LABS: URINE WBC 59.3 /uL (0-25.8)
[2020-09-24] MEDS ORDERED: ACETAMINOPHEN 1000 MG/100 ML VIAL (NON FORMULARY) IVPB PRN ×2 (01:30→01:58)
[2020-09-24] MEDS ORDERED: PIPERACILLIN/TAZOB 3.375 GM 3.375 GM in DEXTROSE 5%-WATER - 50 ML IVPB SCH (01:47)
[2020-09-24] MEDS ORDERED: PIPERACILLIN/TAZOB 3.375 GM 3.375 GM/50 ML BAG IVPB ONE (01:56)
[2020-09-24] MEDS ORDERED: KETAMINE HCL 200 MG/20 ML VIAL IVPUSH ONE (02:04)
[2020-09-24] MEDS ORDERED: KETAMINE HCL 200 MG/20 ML VIAL ONE (02:06)
[2020-09-24] MEDS ORDERED: VANCOMYCIN/WATER FOR INJ (PEG) 750 MG/150 ML BAG IVPB SCH ×3 (02:15→20:00)
[2020-09-24] MEDS ORDERED: PIPERACILLIN/TAZOB 3.375 GM 3.375 GM/50 ML BAG IVPB SCH ×2 (02:15→09:00)
[2020-09-24] MEDS: NOREPINEPHRINE NS PREMIX 8,000 MCG/500 ML BAG IVPB SCH (02:54)
[2020-09-24] MEDS ORDERED: PT OWN MED DRAWER 7, Y5N ONE ×2 (04:31→08:42)
[2020-09-24 07:34] LABS: BASO % 0.2 % (0-2.0); EOS % 0.1 % (0-4.5); HEMATOCRIT 42.9 % (32.4-45.2); HEMOGLOBIN 13.6 GM/dL (10.7-15.3); LYMPH % 7.7 % (8-40); MCH 29.6 pg (25.7-33.7); MCHC 31.7 g/dl (32.0-36.0); MEAN CELL VOLUME 93.2 fl (80-96); MEAN PLT VOLUME 7.7 fl (7.5-11.1); MONO % 11.8 % (3.8-10.2); NEUT % 80.2 % (42.8-82.8); PLATELET COUNT 347 10^3/uL (134-434); RDW 18.1 % (11.6-15.6); WHITE BLOOD COUNT 12.7 K/mm3 (4.0-10.0)
[2020-09-24 07:46] LABS: BLOOD UREA NITROGEN 42.2 mg/dL (7-18); CALCIUM 8.6 mg/dL (8.5-10.1)
[2020-09-24 07:47] LABS: MAGNESIUM 1.9 mg/dL (1.8-2.4)
[2020-09-24 07:49] LABS: CREATININE 0.9 mg/dL (0.55-1.3)
[2020-09-24 07:50] LABS: PHOSPHOROUS 4.2 mg/dL (2.5-4.9)
[2020-09-24 07:51] LABS: BILIRUBIN,TOTAL 0.8 mg/dL (0.2-1); TOT PROT 6.5 g/dl (6.4-8.2)
[2020-09-24 07:59] LABS: LACTIC ACID 2.9 mmol/L (0.4-2.0)
[2020-09-24] MEDS: MUPIROCIN 2% TOPICAL OINTMENT FOR DECOLONIZATION NS SCH ×2 (09:39→23:37)
[2020-09-24] MEDS ORDERED: MIRTAZAPINE 30 MG TABLET PO SCH (10:00)
[2020-09-24] MEDS: carBAMazepine XR 200 MG TAB.ER.12H PO SCH (10:16)
[2020-09-24] MEDS ORDERED: VANCOMYCIN 1 GRAM (PRE-DOCKED) 1,000 MG/250 ML BAG IVPB ONE (12:50)
[2020-09-24] MEDS: PIPERACILLIN/TAZOB 3.375 GM 3.375 GM/50 ML BAG IVPB SCH (13:10)
[2020-09-24] MEDS ORDERED: ACETAMINOPHEN 1000 MG/100 ML VIAL (NON FORMULARY) IVPB ONE (14:31)
[2020-09-24] MEDS ORDERED: PIPERACILLIN/TAZOBACTAM 3.375 GM VIAL IVPB ONE (17:22)
[2020-09-24] MEDS ORDERED: DEXTROSE 5%-WATER - 50 ML IVPB ONE (17:22)
[2020-09-24] MEDS: PIPERACILLIN/TAZOB 3.375 GM 3.375 GM in DEXTROSE 5%-WATER - 50 ML IVPB SCH (18:10)
[2020-09-24] MEDS ORDERED: VANCOMYCIN 750 MG in DEXTROSE 5%-WATER - 150 ML IVPB SCH (20:00)
[2020-09-24] MEDS ORDERED: LACTATED RINGERS SOLUTION 1000 ML INFUS.BAG IV ONE (21:17)
[2020-09-24] MEDS: ATORVASTATIN CA 40 MG TABLET (FP) PO SCH (23:37)
[2020-09-24] MEDS: CHLORHEXIDINE GLUCONATE 4% CLEANSER FOR DECOLONIZATION TP SCH (23:37)
[2020-09-25] MEDS: NOREPINEPHRINE NS PREMIX 8,000 MCG/500 ML BAG IVPB SCH (01:44)
[2020-09-25] MEDS ORDERED: LACTATED RINGERS SOLUTION 1000 ML INFUS.BAG IV ONE (01:46)
[2020-09-25] MEDS ORDERED: SODIUM CHLORIDE 1,000 ML IV SCH (02:00)
[2020-09-25] MEDS: PIPERACILLIN/TAZOB 3.375 GM 3.375 GM in DEXTROSE 5%-WATER - 50 ML IVPB SCH ×3 (02:15→18:51)
[2020-09-25] MEDS ORDERED: PIPERACILLIN/TAZOBACTAM 3.375 GM VIAL IVPB ONE ×3 (05:33→17:33)
[2020-09-25] MEDS ORDERED: DEXTROSE 5%-WATER - 50 ML IVPB ONE ×3 (05:33→17:33)
[2020-09-25 07:26] LABS: HEMATOCRIT 43.4 % (32.4-45.2); HEMOGLOBIN 13.7 GM/dL (10.7-15.3); MCH 29.7 pg (25.7-33.7); MCHC 31.6 g/dl (32.0-36.0); MEAN CELL VOLUME 94.1 fl (80-96); MEAN PLT VOLUME 7.5 fl (7.5-11.1); PLATELET COUNT 329 10^3/uL (134-434); RBC 4.61 M/mm3 (3.60-5.2); RDW 18.7 % (11.6-15.6); WHITE BLOOD COUNT 10.9 K/mm3 (4.0-10.0)
[2020-09-25] MEDS ORDERED: LIDOCAINE 5% TOPICAL PATCH TP ONE (07:30)
[2020-09-25 07:47] LABS: INR 2.42 (0.83-1.09); PROTHROMBIN TIME (PATIENT) 28.5 SEC (9.7-13.0)
[2020-09-25 08:14] LABS: ALBUMIN 2.9 g/dl (3.4-5.0); BLOOD UREA NITROGEN 43.8 mg/dL (7-18); CALCIUM 8.5 mg/dL (8.5-10.1)
[2020-09-25] MEDS ORDERED: PHENYLEPHRINE HCL 10 MG/1 ML SINGLE DOSE VIAL ONE (08:15)
[2020-09-25] MEDS ORDERED: PHENYLEPHRINE NS PREMIX 50,000 MCG/500 ML BAG CVP SCH (08:15)
[2020-09-25 08:16] LABS: MAGNESIUM 1.9 mg/dL (1.8-2.4)
[2020-09-25 08:18] LABS: CREATININE 0.9 mg/dL (0.55-1.3); PHOSPHOROUS 3.4 mg/dL (2.5-4.9)
[2020-09-25 08:19] LABS: BILIRUBIN,TOTAL 0.9 mg/dL (0.2-1); TOT PROT 6.3 g/dl (6.4-8.2)
[2020-09-25] MEDS: MUPIROCIN 2% TOPICAL OINTMENT FOR DECOLONIZATION NS SCH ×2 (09:41→21:14)
[2020-09-25] MEDS: carBAMazepine XR 200 MG TAB.ER.12H PO SCH (09:47)
[2020-09-25] MEDS ORDERED: HYDROmorphone HCl 2 MG/ML VIAL IM PRN (11:41)
[2020-09-25] MEDS ORDERED: FUROSEMIDE 40 MG/4 ML INJECTABLE VIAL IVPUSH ONE (17:52)
[2020-09-25] MEDS ORDERED: VASOPRESSIN 40 UNITS in SODIUM CHLORIDE 98 ML IVPB SCH (18:00)
[2020-09-25] MEDS ORDERED: VASOPRESSIN 20 UNITS/ML VIAL IV ONE (18:05)
[2020-09-25] MEDS: CHLORHEXIDINE GLUCONATE 4% CLEANSER FOR DECOLONIZATION TP SCH (21:13)
[2020-09-25] MEDS: ATORVASTATIN CA 40 MG TABLET (FP) PO SCH (21:19)
[2020-09-25] MEDS ORDERED: MIRTAZAPINE 30 MG TABLET PO SCH (22:00)
[2020-09-25] MEDS ORDERED: LIDOCAINE PATCH REMOVAL MC ONE (22:00)
[2020-09-26 02:14] VITALS: TEMP 98.1
[2020-09-26 06:10] VITALS: BP 0/0; PULSE 0
[2020-09-26] MEDS ORDERED: ASPIRIN 81 MG CHEWABLE TABLETS PO SCH (10:00)
== END 2020-09-26 06:00 | disposition expired | DRG 871 ==
LOC: JER 15:12 → JERBED 09-24 01:04 → JICU 09-24 03:12
PROVIDERS: ADMIT Internal Medicine Pulmonary Disease; ATTEND Family Medicine
PROC: 05HM33Z Insertion of Infusion Device into Right Internal Jugular Vein, Percutaneous Approach (ICD-10-PCS; principal; 2020-09-24)
DX: A41.89 Other specified sepsis (principal); R65.21 Severe sepsis with septic shock; N17.9 Acute kidney failure, unspecified; N39.0 Urinary tract infection, site not specified; I48.21 Permanent atrial fibrillation; I50.42 Chronic combined systolic (congestive) and diastolic (congestive) heart failure; E87.2 Acidosis; R64 Cachexia; Z68.1 Body mass index [BMI] 19.9 or less, adult; J98.11 Atelectasis; I25.10 Atherosclerotic heart disease of native coronary artery without angina pectoris; E03.9 Hypothyroidism, unspecified; E78.5 Hyperlipidemia, unspecified; I08.3 Combined rheumatic disorders of mitral, aortic and tricuspid valves; D72.829 Elevated white blood cell count, unspecified; F32.9 Major depressive disorder, single episode, unspecified; I27.20 Pulmonary hypertension, unspecified; E87.5 Hyperkalemia; E11.9 Type 2 diabetes mellitus without complications; E04.1 Nontoxic single thyroid nodule; I11.0 Hypertensive heart disease with heart failure; I46.9 Cardiac arrest, cause unspecified; M51.37 Other intervertebral disc degeneration, lumbosacral region; G50.0 Trigeminal neuralgia; Z95.0 Presence of cardiac pacemaker; Z96.643 Presence of artificial hip joint, bilateral
CPT/HCPCS: 36415; 36600; 70450-TC; 71045-TC-FY; 76705-TC; 80048; 80053; 81003; 82803; 82962; 83010; 83036; 83605; 83615; 83735; 84100; 84484; 85025; 85027; 85384; 85610; 85730; 87040; 87086; 87804; 93005; 93010; 99291; C9803; J0131; U0003; U0005